=== PATIENT | female | born 1965 | race Caucasian/White ===

== ENCOUNTER → 2016-05-10 | Outpatient (CLI) | payer BC, OTHER ==
[~2016-05-10] MED LIST: ADVIN50/60 INH; ALBUAER2 INH; ASPI81TA28 PO; ATOR-26 PO; AZEL0.15 NAE; BCTCR TOP; CETI10TA84 PO; CITA20TA4 PO; CRFUDL PO; DXY100 PO; ESOM1CAP24 PO; FLUO20CA35 PO; FLUT0.0529 NAE; FLUT0.15 NAE; HYD10 PO; LORA0.5T12 PO; MAGIC1 PO; METO50TA16 PO; MONT1TAB3 PO; NTRGSL/4 UT; NTRSLP4 SL; ONDA4TAB10 SL; PANT40TA PO; PRED-301 PO; PRED10TA PO; PRVHFAIN INH; SUCR1TAB29 PO; TICA1TAB PO; WARF5TAB7 PO; ZNTT/150 PO
[2016-05-14 12:35] LABS: CHLAMYDIA TRACH RNA*** NOT DETECTED (NOT DETECTED); GC (NEIS GONORRHOEAE)RNA** NOT DETECTED (NOT DETECTED)
== END | disposition home or self-care (01) ==
LOC: C.LABSPEC 15:37
PROVIDERS: ATTEND Obstetrics & Gynecology
DX: Z30.430 Encounter for insertion of intrauterine contraceptive device (principal)

== ENCOUNTER → 2016-05-31 | Outpatient (CLI) | payer BC ==
[~2016-05-31] MED LIST changes: -ONDA4TAB10 SL
[2016-05-31 11:10] LABS: BASO % 1.3 %; BASO ABS # 0.11 K/uL (0-0.2); EOS % 14.3 %; HEMATOCRIT 30.6 % (37-47); IG% 0.5 %; LYMPH % 20.2 %; LYMPH ABS # 1.72 K/uL (1.2-3.4); MEAN CELL VOLUME 78.7 fL (80-100); MEAN CORPUSCULAR HEMOGLOBIN 23.9 pg (25-34); MEAN PLATELET VOLUME 9.6 fL (7.4-10.4); NEUT % 55.7 %; PLATELET COUNT 410 K/uL (130-400); RED BLOOD COUNT 3.89 M/uL (4.2-5.4); WHITE BLOOD COUNT 8.51 K/uL (4.8-10.8)
[2016-05-31 11:31] LABS: COMPLETE YES; MEAN CORPUSCULAR HGB CONC 30.4 g/dl (32-36)
[2016-05-31 11:35] LABS: ALT/SGPT 24 U/L (12-78); BLOOD UREA NITROGEN 9 mg/dl (7-18); BUN/CREATININE RATIO 8.4 (10-20); CALCIUM 8.3 mg/dl (8.5-10.1); CARBON DIOXIDE 25 mmol/L (21-32); CHLORIDE 109 mmol/L (98-107); GLUCOSE 88 mg/dl (70-99); POTASSIUM 3.7 mmol/L (3.5-5.1); SODIUM 142 mmol/L (136-145)
[2016-05-31 11:40] LABS: ALB/GLOB RATIO 1.1 (0.9-2); ALKALINE PHOSPHATASE 60 U/L (45-117); AST/SGOT 13 U/L (15-37)
== END | disposition home or self-care (01) ==
LOC: C.LAB 10:36
PROVIDERS: ATTEND Family Medicine
DX: R07.89 Other chest pain (principal)

== ENCOUNTER 2016-06-04 19:19 | Inpatient (IN) | payer BC ==
[~2016-06-04] VITALS: Ht 157.5 cm; Wt 81.1 kg
[~2016-06-04 19:19] MED LIST changes: -ADVIN50/60 INH; -ASPI81TA28 PO; -ATOR-26 PO; -AZEL0.15 NAE; -BCTCR TOP; -CETI10TA84 PO; -CITA20TA4 PO; -CRFUDL PO; -DXY100 PO; -ESOM1CAP24 PO; -FLUO20CA35 PO; -FLUT0.15 NAE; -HYD10 PO; -MAGIC1 PO; -METO50TA16 PO; -MONT1TAB3 PO; -NTRGSL/4 UT; -PANT40TA PO; -PRED-301 PO; -PRED10TA PO; -PRVHFAIN INH; -SUCR1TAB29 PO; -TICA1TAB PO; -ZNTT/150 PO
--- NOTE | 2016-06-04 20:45 | DIAGNOSTIC IMAGING REPORT ---
CHEST ONE VIEW PORTABLE CLINICAL HISTORY: Pain, radiating to the abdomen. COMPARISON STUDY: 05/04/2016 FINDINGS: The cardiac and mediastinal contours are normal. There is no evidence of focal pulmonary consolidation. There is no evidence of failure. No pleural effusions are visualized.[ The right-sided A-Port catheter remains unchanged in position. IMPRESSION: No active disease in the chest. Electronically signed by: Meño Amezcua M.D. 06/04/2016 8:43 PM Dictated Date/Time: 06/04/2016 8:43 PM
--- NOTE | 2016-06-04 20:56 | EMERGENCY ROOM VISIT NOTE ---
History Report prepared by Maria Teresa: Brianne Coffman Under the Supervision of: Dr. Guillermo Bennett D.O. First contact with patient: 20:21 Chief Complaint: REFERRED BY DOCTOR Stated Complaint: SENT FOR TRANSFUSION,CHEST PAIN, SOB History of Present Illness The patient is a 50 year old female who presents to the Emergency Room with complaints of intermittent chest pain starting 3 days ago. She notes some shortness of breath with exertion. She also had some lower back pain. She also reports a loss of appetite. About 2 weeks ago, she started having swelling in upper extremities. The patient currently denies any pain. She denies fevers, chills, nausea, vomiting, abdominal pain, lower extremity swelling, blood in stool, or any other complaints. She had blood work today which showed low hemoglobin level. She was referred to the Emergency Room by her PCP to receive further blood work and blood transfusion. She has a history of chronic anemia and myocardial infarction. Source of History: patient Onset: 3 days ago Position: chest Symptom Intensity: No pain currently Timing: intermittent Associated Symptoms: + back pain, No abdominal pain, No chills, No fevers, No nausea, No vomiting Review of Systems See HPI for pertinent positives & negatives. A total of 10 systems reviewed and were otherwise negative. Past Medical & Surgical Medical Problems: (1) Acute coronary syndrome,ST elevation AK (2) Acute coronary syndrome,ST elevation AK (3) Asthma (4) CAD (coronary artery disease) (5) Chest pain (6) NSTEMI, initial episode of care (7) pulmonary embo (8) Pulmonary embolism (9) SOB (shortness of breath) (10) Symptomatic anemia Family History Cancer Diabetes mellitus Gallbladder disease Heart disease Hypertension Lung disease Social History Smoking Status: Never Smoker Alcohol Use: none Drug Use: none Marital Status: Housing Status: lives with family Occupation Status: retired Current/Historical Medications Scheduled Aspirin (Aspirin Ec), 81 MG PO QAM Atorvastatin (Lipitor), 80 MG PO DAILY Citalopram Hydrobromide (Citalopram Hydrobromide), 20 MG PO HS Fluticasone Prop/Salmeterol (Advair Diskus 500/50 60 Dose), 1 PUFF INH BID Fluticasone Propionate (Nasal) (Flonase Allergy Relief), 2 SPRAYS JAY QPM Hydrocortisone (Cortef), 15 MG PO QAM Metoprolol Tartrate (Lopressor) (Lopressor), 50 MG PO BID Pantoprazole (Protonix), 40 MG PO BID Ticagrelor (Brilinta), 90 MG PO BID Warfarin Sod (Jantoven), 5 MG PO 5XWK Warfarin Sod (Jantoven), 7.5 MG PO 2XWK Scheduled PRN Albuterol (Ventolin Hfa), 2 PUFFS INH Q6H PRN for Asthma Symptoms Cetirizine (Zyrtec), 10 MG PO DAILY PRN for Allergy Symptoms Mupirocin (Bactroban), 1 APPLN TOP UD PRN for Cold Sores Nitroglycerin (Nitrostat), 0.4 MG UT UD PRN for Chest Pain Allergies Coded Allergies: Rivaroxaban (Verified Allergy, Intermediate, SHORTNESS OF BREATH, 04/07/16) and throat swelling Clarithromycin (Verified Allergy, Mild, HIVES, 04/07/16) Azithromycin (Unverified Allergy, Unknown, per cardio note , 04/07/16) Cephalosporins (Verified Allergy, Unknown, hives/mild throat swelling, 04/07/16) CEFTRIAXONE Clavulanic Acid (Verified Allergy, Unknown, HIVES, 04/07/16) Fexofenadine (Unverified Allergy, Unknown, per cardio note , 04/07/16) Formoterol (Unverified Allergy, Unknown, per cardio note , 04/07/16) Iron (Verified Allergy, Unknown, HANDS/FEET SWELLING/NAUSEA/UNCONSCIOUS, 04/07/16) CURRENTLY ON IRON INFUSION REGIME - DR ALCANTARA PRESCRIBES - OKAY ON THESE INFUSIONS AT CURRENT TIME Milk Protein Extract (Unverified Allergy, Unknown, per cardio note , ) Penicillins (Verified Allergy, Unknown, HIVES, 04/07/16) Pseudoephedrine (Unverified Allergy, Unknown, per cardio note , 04/07/16) Sulfa Antibiotics (Verified Allergy, Unknown, swelling and hives, 04/07/16) Erythromycin (Verified Adverse Reaction, Unknown, NAUSEA, 04/07/16) Uncoded Allergies: Proair (Allergy, Unknown, per cardio note , 04/06/16) Tolerates Ventolin Physical Exam Vital Signs Date Time Temp Pulse Resp B/P Pulse Ox O2 Delivery O2 Flow Rate FiO2 06/04/16 22:34 57 16 113/73 99 Room Air 06/04/16 22:15 67 06/04/16 21:10 59 16 108/68 99 Room Air 06/04/16 19:34 36.5 63 16 105/58 100 Room Air Physical Exam GENERAL: Patient is awake, alert, and in no acute distress. Patient is resting comfortably and showing no signs of anxiety EYES: The conjunctivae are clear. The pupils are round and reactive. EARS, NOSE, MOUTH AND THROAT: The nose is without any evidence of any deformity. Mucous membranes are moist tongue is midline NECK: The neck is nontender and supple. RESPIRATORY: Normal respiratory effort is noted there is no evidence of wheezing rhonchi or rales CARDIOVASCULAR: Regular rate and rhythm noted there no murmurs rubs or gallops normal S1 normal S2 GASTROINTESTINAL: The abdomen is soft. Bowel sounds are present in all quadrants. Abdomen is nontender. Rectal exam revealed brown stool which is heme negative. MUSCULOSKELETAL/EXTREMITIES: There is no evidence of gross deformity full range of motion is noted in the hips and shoulders SKIN: There is no obvious evidence of any rash. There are no petechiae, pallor or cyanosis noted. NEUROLOGIC: Patient is awake alert and oriented x3 Medical Decision & Procedures ER Provider Diagnostic Interpretation: X-ray results as stated below per interpretation by me and the radiologist. CHEST ONE VIEW PORTABLE CLINICAL HISTORY: Pain, radiating to the abdomen. COMPARISON STUDY: 05/04/2016 FINDINGS: The cardiac and mediastinal contours are normal. There is no evidence of focal pulmonary consolidation. There is no evidence of failure. No pleural effusions are visualized.[ The right-sided A-Port catheter remains unchanged in position. IMPRESSION: No active disease in the chest. Electronically signed by: Meño Amezcua M.D. 06/04/2016 8:43 PM Dictated Date/Time: 06/04/2016 8:43 PM Laboratory Results 06/04/16 20:45 Red Blood Count 3.89, Mean Corpuscular Volume 76.9, Mean Corpuscular Hemoglobin 23.7, Mean Corpuscular Hemoglobin Concent 30.8, Mean Platelet Volume 9.6, Neutrophils (%) (Auto) 58.4, Lymphocytes (%) (Auto) 18.0, Monocytes (%) (Auto) 5.9, Eosinophils (%) (Auto) 15.9, Basophils (%) (Auto) 1.6, Neutrophils # (Auto ) 4.88, Lymphocytes # (Auto) 1.50, Monocytes # (Auto) 0.49, Eosinophils # (Auto ) 1.33, Basophils # (Auto) 0.13 06/04/16 20:45 Test 06/04/16 20:45 White Blood Count 8.35 K/uL (4.8-10.8) Red Blood Count 3.89 M/uL (4.2-5.4) Hemoglobin 9.2 g/dL (12.0-16.0) Hematocrit 29.9 % (37-47) Mean Corpuscular Volume 76.9 fL (80-100) Mean Corpuscular Hemoglobin 23.7 pg (25-34) Mean Corpuscular Hemoglobin Concent 30.8 g/dl (32-36) Platelet Count 432 K/uL (130-400) Mean Platelet Volume 9.6 fL (7.4-10.4) Neutrophils (%) (Auto) 58.4 % Lymphocytes (%) (Auto) 18.0 % Monocytes (%) (Auto) 5.9 % Eosinophils (%) (Auto) 15.9 % Basophils (%) (Auto) 1.6 % Neutrophils # (Auto) 4.88 K/uL (1.4-6.5) Lymphocytes # (Auto) 1.50 K/uL (1.2-3.4) Monocytes # (Auto) 0.49 K/uL (0.11-0.59) Eosinophils # (Auto) 1.33 K/uL (0-0.5) Basophils # (Auto) 0.13 K/uL (0-0.2) RDW Standard Deviation 48.9 fL (36.4-46.3) RDW Coefficient of Variation 17.3 % (11.5-14.5) Immature Granulocyte % (Auto) 0.2 % Immature Granulocyte # (Auto) 0.02 K/uL (0.00-0.02) Absolute Reticulocyte Count 0.07 10^6/uL (0.02-0.10) Percent Reticulocyte Count 1.8 % (0.5-2.0) Immature Reticulocyte Fraction 22.7 % (3.0-15.9) Reticulocyte Hemoglobin Content 18.2 PG (28.2-36.6) Prothrombin Time 12.0 SECONDS (9.0-12.0) Prothromb Time International Ratio 1.1 (0.9-1.1) Activated Partial Thromboplast Time 28.3 SECONDS (21.0-31.0) Partial Thromboplastin Ratio 1.1 Anion Gap 9.0 mmol/L (3-11) Est Creatinine Clear Calc Drug Dose 60.4 ml/min Estimated GFR () 67.8 Estimated GFR (Non- 58.5 BUN/Creatinine Ratio 7.0 (10-20) Calcium Level 8.3 mg/dl (8.5-10.1) Total Bilirubin 0.4 mg/dl (0.2-1) Direct Bilirubin < 0.1 mg/dl (0-0.2) Aspartate Amino Transf (AST/SGOT) 22 U/L (15-37) Alanine Aminotransferase (ALT/SGPT) 27 U/L (12-78) Alkaline Phosphatase 62 U/L (45-117) Total Creatine Kinase 142 U/L (26-192) Creatine Kinase MB 3.7 ng/ml (0.5-3.6) Creatine Kinase MB Ratio 2.6 (0-3.0) Total Protein 7.0 gm/dl (6.4-8.2) Albumin 3.7 gm/dl (3.4-5.0) Lipase 159 U/L (73-393) Thyroid Stimulating Hormone (TSH) 2.080 uIu/ml (0.300-4.500) Free Thyroxine 0.82 ng/dl (0.80-1.60) Human Chorionic Gonadotropin, Qual NEG (NEG) Random Cortisol 3.10 mcg/dl Laboratory results per my review. Medications Administered Medications (Trade) Dose Ordered Sig/Daisha Route Start Time Stop Time Status Last Admin Dose Admin Aspirin (Aspirin Chew) 324 mg NOW STAT PO 06/04/16 21:59 06/04/16 22:00 DC 06/04/16 22:04 324 MG Heparin Sodium/ Dextrose (Heparin 25,000 Unit/500ml D5W) 25,000 unit STK-MED ONCE .ROUTE 06/04/16 22:13 06/04/16 22:15 DC 06/04/16 22:33 25,000 UNIT Heparin Sodium (Porcine) (Heparin Sq 5000 Unit/0.5ml) 5,000 unit STK-MED ONCE .ROUTE 06/04/16 22:14 06/04/16 22:15 DC 06/04/16 22:29 5,000 UNIT ECG Indication: chest pain Rate (beats per minute): 56 Rhythm: sinus bradycardia Findings: T-wave inversion (anterior and lateral), no ectopy Comparison ECG Date: May 04, 2016 Change: Anterior changes are new compared to May 04, 2016. ED Course 2020: The patient was evaluated in room A11B. A complete history and physical examination were performed. 2158: Aspirin 324 mg PO 2200: I discussed the patient's case with Dr. Plaza, guardian ad litem with [facility]. He recommended heparin and continuing to monitor troponin and pain. 2203: Heparin Sodium/Dextrose 1 ea N/A 221: Heparin Sodium/Dextrose 34669 unit IV 2213: Heparin Sodium (Porcine) 5000 unit IV 2300: Upon reevaluation, the patient is resting comfortably. I discussed results and treatment plan with her. She verbalizes agreement and understanding. [facility] The patient will be evaluated for further management and care. Medical Decision Differential diagnosis: Etiologies such as cardiac ischemia, aortic dissection, pulmonary embolism, pneumonia, pneumothorax, musculoskeletal, infections, pericarditis, myocarditis , esophageal rupture, gastrointestinal, as well as others were entertained. Nursing notes reviewed. The patient is a 50-year-old female who presented to the emergency department for an evaluation of chest pain and anemia. The patient was found have anemia on outpatient laboratory studies but she's been having problems with exertional dyspnea and exertional chest pain over the last few days. The patient doesn't a history of coronary artery disease. She's had similar episodes in the past with angina related to anemia. The patient does not have any current chest pain but describes episodes of right-sided chest pain especially with exertion. Her EKG only showed nonspecific T-wave abnormalities which were new compared to previous EKGs. She was typed and screened and ordered 2 units of packed red blood cells. Her rectal exam revealed heme negative stool. She was found have an elevated troponin. I discussed her presentation with her primary guardian ad litem and he is recommended starting the patient on heparin because her INR is subtherapeutic. She was also given aspirin. I discussed her case with the on-call [facility] hospitalist group. They've agreed to evaluate the patient in the emergency department for further management and disposition. Consults Time Called: 2254 Consulting Physician: Dr. Mata of the [facility] Returned Call: [phone] [facility] Additional Consults: Time Called: 2199 Consulted Physician: Dr. Plaza, guardian ad litem with [facility] Returned Call: 2200 Additional Comments: I discussed the patient's case with Dr. Plaza, guardian ad litem with [facility]. He recommended heparin and continuing to monitor troponin and pain. Impression Primary Impression: NSTEMI (non-ST elevated myocardial infarction) Additional Impressions: Anemia Right-sided chest pain Critical Care I have personally spent greater than 45 minutes of critical care time in the direct management of this patient. This includes bedside care, interpretation of diagnostic studies, and testing, discussion with consultants, patient, and family members, and other required patient management activities. This 45 minutes is in excess of all separately billable procedures. Scribe Attestation The scribe's documentation has been prepared under my direction and personally reviewed by me in its entirety. I confirm that the note above accurately reflects all work, treatment, procedures, and medical decision making performed by me. Departure Information Dispostion Being Evaluated By Hospitalist Genaro Guy M.D. (PCP) Patient Instructions My [facility] Problem Qualifiers
[2016-06-04 21:12] LABS: BASO % 1.6 %; BASO ABS # 0.13 K/uL (0-0.2); COMPLETE YES; EOS % 15.9 %; HEMATOCRIT 29.9 % (37-47); IG% 0.2 %; IMMATURE RETIC FRACTION 22.7 % (3.0-15.9); MEAN CELL VOLUME 76.9 fL (80-100); MEAN CORPUSCULAR HEMOGLOBIN 23.7 pg (25-34); MEAN CORPUSCULAR HGB CONC 30.8 g/dl (32-36); MEAN PLATELET VOLUME 9.6 fL (7.4-10.4); MONO % 5.9 %; NEUT % 58.4 %; PLATELET COUNT 432 K/uL (130-400); RED BLOOD COUNT 3.89 M/uL (4.2-5.4); RETHE 18.2 PG (28.2-36.6); WHITE BLOOD COUNT 8.35 K/uL (4.8-10.8)
[2016-06-04] MEDS ORDERED: PRVHFAIN INH (21:14)
[2016-06-04 21:20] LABS: INR 1.1 (0.9-1.1); PARTIAL THROMBOPLASTIN RATIO 1.1
[2016-06-04 21:27] LABS: ALT/SGPT 27 U/L (12-78); BLOOD UREA NITROGEN 8 mg/dl (7-18); CALCIUM 8.3 mg/dl (8.5-10.1); CARBON DIOXIDE 24 mmol/L (21-32); CHLORIDE 110 mmol/L (98-107); GLUCOSE 88 mg/dl (70-99); SODIUM 143 mmol/L (136-145)
[2016-06-04 21:29] LABS: PREG INTERNAL NEGATIVE QC NEG CLEAR BACKGROUND; PREG INTERNAL POSITIVE QC POS CONTROL LINE
[2016-06-04 21:41] LABS: ALKALINE PHOSPHATASE 62 U/L (45-117); AST/SGOT 22 U/L (15-37); CKMB/CK RATIO 2.6 (0-3.0)
[2016-06-04] MEDS ORDERED: ASPIRIN 81 MG CHEW PO STA (21:59)
[2016-06-04] MEDS ORDERED: HEPARIN 25000 UNIT/500 ML D5W ONE (22:13)
[2016-06-04] MEDS ORDERED: HEPARIN SOD 5000 UNIT/0.5 ML CARP ONE (22:14)
--- NOTE | 2016-06-04 22:50 | History and Physical ---
History & Physical Date & Time of Service: Jun 04, 2016 at 22:28 Chief Complaint: Sent For Transfusion,Chest Pain, Sob Primary Care Physician: Genaro Mitchell M.D. History of Present Illness Source: patient 50 y/o F w/Hx severe CAD, STEMI 11/18 leading to two catheterizations and placement of SHARON x 2 to LAD and one in the RCA. She suffers from anemia as well due to chronic heavy menstrual bleeding and has had previous episodes of CP and troponin elevation related to anemia and demand ischemia. She also has a history of recent PEs for which she is on Coumadin. She present with central CP described as burning and GERD-like. No associated N /V, SOB or diaphoresis. Initial labs revealed a troponin elevation . Initial EKG showed new T wave inversions in lead V5 but is otherwise unchanged. 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 5) B/L PEs 02/18 6) HPL 7) Depression 8) Anaphylactic reaction to IV iron Surgical: 1) Cholecystectomy Family History Cancer Diabetes mellitus Gallbladder disease Heart disease Hypertension Lung disease Social History Smoking Status: Never Smoker Drug Use: none Marital Status: Housing status: lives with family Occupational Status: retired Immunizations History of Influenza Vaccine: Unknown Influenza Vaccine Date: Feb 24, 2006 History of Tetanus Vaccine?: Unknown History of Pneumococcal: Unknown History of Hepatitis B Vaccine: No Multi-Drug Resistant Organisms History of MDRO: No Allergies Coded Allergies: Rivaroxaban (Verified Allergy, Intermediate, SHORTNESS OF BREATH, 04/07/16) and throat swelling Clarithromycin (Verified Allergy, Mild, HIVES, 04/07/16) Azithromycin (Unverified Allergy, Unknown, per cardio note , 04/07/16) Cephalosporins (Verified Allergy, Unknown, hives/mild throat swelling, 04/07/16) CEFTRIAXONE Clavulanic Acid (Verified Allergy, Unknown, HIVES, 04/07/16) Fexofenadine (Unverified Allergy, Unknown, per cardio note , 04/07/16) Formoterol (Unverified Allergy, Unknown, per cardio note , 04/07/16) Iron (Verified Allergy, Unknown, HANDS/FEET SWELLING/NAUSEA/UNCONSCIOUS, 04/07/16) CURRENTLY ON IRON INFUSION REGIME - DR ALCANTARA PRESCRIBES - OKAY ON THESE INFUSIONS AT CURRENT TIME Milk Protein Extract (Unverified Allergy, Unknown, per cardio note , ) Penicillins (Verified Allergy, Unknown, HIVES, 04/07/16) Pseudoephedrine (Unverified Allergy, Unknown, per cardio note , 04/07/16) Sulfa Antibiotics (Verified Allergy, Unknown, swelling and hives, 04/07/16) Erythromycin (Verified Adverse Reaction, Unknown, NAUSEA, 04/07/16) Uncoded Allergies: Proair (Allergy, Unknown, per cardio note , 04/06/16) Tolerates Ventolin Home Medications Scheduled Aspirin (Aspirin Ec), 81 MG PO QAM Atorvastatin (Lipitor), 80 MG PO DAILY Citalopram Hydrobromide (Citalopram Hydrobromide), 20 MG PO HS Fluticasone Prop/Salmeterol (Advair Diskus 500/50 60 Dose), 1 PUFF INH BID Fluticasone Propionate (Nasal) (Flonase Allergy Relief), 2 SPRAYS JAY QPM Hydrocortisone (Cortef), 15 MG PO QAM Metoprolol Tartrate (Lopressor) (Lopressor), 50 MG PO BID Pantoprazole (Protonix), 40 MG PO BID Ticagrelor (Brilinta), 90 MG PO BID Warfarin Sod (Jantoven), 5 MG PO 5XWK Warfarin Sod (Jantoven), 7.5 MG PO 2XWK Scheduled PRN Albuterol (Ventolin Hfa), 2 PUFFS INH Q6H PRN for Asthma Symptoms Cetirizine (Zyrtec), 10 MG PO DAILY PRN for Allergy Symptoms Mupirocin (Bactroban), 1 APPLN TOP UD PRN for Cold Sores Nitroglycerin (Nitrostat), 0.4 MG UT UD PRN for Chest Pain Review of Systems Constitutional: No chills, No fever, No sweats Eyes: No eye pain, No worsening of vision ENT: No hearing loss, No nasal symptoms, No unusual epistaxis Respiratory: No cough, No sputum, No wheezing Cardiovascular: + chest pain, No PND, No claudication, No edema, No orthopnea, No palpitations Abdomen: No nausea, No pain, No vomiting Musculoskeletal: No joint pain, No muscle pain Genitourinary - Female: No dysuria, No hematuria, No urinary frequency, No urinary incontinence, No urinary retention, No urinary urgency Neurologic: No memory loss Psychiatric: No depression symptoms Endocrine: No fatigue Hematologic / Lymphatic: No abnormal bleeding/bruising Integumentary: No rash Allergic / Immunologic: No environmental allergies Physical Exam Vital Signs Date Time Temp Pulse Resp B/P Pulse Ox O2 Delivery O2 Flow Rate FiO2 06/04/16 22:15 67 06/04/16 21:10 59 16 108/68 99 Room Air 06/04/16 19:34 36.5 63 16 105/58 100 Room Air General Appearance: WD/WN, no apparent distress Head: normocephalic, atraumatic Eyes: normal inspection, PERRL, EOMI ENT: normal ENT inspection, hearing grossly normal, TMs normal, pharynx normal Neck: supple, no adenopathy, thyroid normal, no JVD Respiratory/Chest: chest non-tender, lungs clear, normal breath sounds, no respiratory distress, no accessory muscle use Cardiovascular: regular rate, rhythm, no edema, no gallop, no JVD Abdomen/GI: normal bowel sounds, non tender, soft Back: normal inspection, no CVA tenderness, no muscle spasm, normal range of motion Extremities/Musculoskelatal: normal inspection, no calf tenderness, normal capillary refill, no pedal edema, normal range of motion Neurologic/Psych: foot and ankle surgeon II-XII nml as tested, no motor/sensory deficits, alert, normal mood/affect, normal reflexes, oriented x 3 Skin: normal color, warm/dry, no rash Diagnostics Laboratory Results Results Past 24 Hours Test 06/04/16 20:45 Range/Units White Blood Count 8.35 4.8-10.8 K/uL Red Blood Count 3.89 4.2-5.4 M/uL Hemoglobin 9.2 12.0-16.0 g/dL Hematocrit 29.9 37-47 % Mean Corpuscular Volume 76.9 80-100 fL Mean Corpuscular Hemoglobin 23.7 25-34 pg Mean Corpuscular Hemoglobin Concent 30.8 32-36 g/dl Platelet Count 432 130-400 K/uL Mean Platelet Volume 9.6 7.4-10.4 fL Neutrophils (%) (Auto) 58.4 % Lymphocytes (%) (Auto) 18.0 % Monocytes (%) (Auto) 5.9 % Eosinophils (%) (Auto) 15.9 % Basophils (%) (Auto) 1.6 % Neutrophils # (Auto) 4.88 1.4-6.5 K/uL Lymphocytes # (Auto) 1.50 1.2-3.4 K/uL Monocytes # (Auto) 0.49 0.11-0.59 K/uL Eosinophils # (Auto) 1.33 0-0.5 K/uL Basophils # (Auto) 0.13 0-0.2 K/uL RDW Standard Deviation 48.9 36.4-46.3 fL RDW Coefficient of Variation 17.3 11.5-14.5 % Immature Granulocyte % (Auto) 0.2 % Immature Granulocyte # (Auto) 0.02 0.00-0.02 K/uL Absolute Reticulocyte Count 0.07 0.02-0.10 10^6/uL Percent Reticulocyte Count 1.8 0.5-2.0 % Immature Reticulocyte Fraction 22.7 3.0-15.9 % Reticulocyte Hemoglobin Content 18.2 28.2-36.6 PG Prothrombin Time 12.0 9.0-12.0 SECONDS Prothromb Time International Ratio 1.1 0.9-1.1 Activated Partial Thromboplast Time 28.3 21.0-31.0 SECONDS Partial Thromboplastin Ratio 1.1 Sodium Level 143 136-145 mmol/L Potassium Level 4.0 3.5-5.1 mmol/L Chloride Level 110 98-107 mmol/L Carbon Dioxide Level 24 21-32 mmol/L Anion Gap 9.0 3-11 mmol/L Blood Urea Nitrogen 8 7-18 mg/dl Creatinine 1.10 0.60-1.20 mg/dl Est Creatinine Clear Calc Drug Dose 60.4 ml/min Estimated GFR () 67.8 Estimated GFR (Non- 58.5 BUN/Creatinine Ratio 7.0 10-20 Random Glucose 88 70-99 mg/dl Calcium Level 8.3 8.5-10.1 mg/dl Total Bilirubin 0.4 0.2-1 mg/dl Direct Bilirubin < 0.1 0-0.2 mg/dl Aspartate Amino Transf (AST/SGOT) 22 15-37 U/L Alanine Aminotransferase (ALT/SGPT) 27 12-78 U/L Alkaline Phosphatase 62 45-117 U/L Total Creatine Kinase 142 26-192 U/L Creatine Kinase MB 3.7 0.5-3.6 ng/ml Creatine Kinase MB Ratio 2.6 0-3.0 Troponin I 2.240 0-0.045 ng/ml Total Protein 7.0 6.4-8.2 gm/dl Albumin 3.7 3.4-5.0 gm/dl Lipase 159 73-393 U/L Thyroid Stimulating Hormone (TSH) 2.080 0.300-4.500 uIu/ml Free Thyroxine 0.82 0.80-1.60 ng/dl Human Chorionic Gonadotropin, Qual NEG NEG Random Cortisol 3.10 mcg/dl Impression Assessment and Plan 50 y/o F w/Hx severe CAD, STEMI 11/18 leading to two catheterizations and placement of SHARON x 2 to LAD and one in the RCA. She suffers from anemia as well due to chronic heavy menstrual bleeding and has had previous episodes of CP and troponin elevation related to anemia and demand ischemia. She also has a history of recent PEs for which she is on Coumadin. She present with central CP described as burning and GERD-like. Initial labs revealed a troponin elevation . Initial EKG showed new T wave inversions in lead V5 but is otherwise unchanged. Her INR was slightly subtherapeutic on admission 1) CP - troponin elevation - She will be transfused 2 units PRBCs as she is anemic and has had CP previously when her Hb has been low. She will be placed on full dose Heparin as her INR is 1.7 and cont Brilinta. Her x ray service engineer has been consulted. 2) Anemia - we will monitor for bleeding and as mentioned she will be transfused due to her CP 3) Asthma - cont home meds - no current exacerbation 4) Adrenal insufficiency - cont replacement Tx Full code - full dose heparin Total time for this admit including chart review, review of meds, EKG - discussion with ER attending and pt 42 min Level of Care Telemetry Resuscitation Status FULL RESUSCITATION VTE Prophylaxis Given or contraindicated: Other Anticoagulation
[2016-06-04] MEDS ORDERED: ALBUTEROL HFA 8 GM INHALER INH PRN (23:00)
[2016-06-04] MEDS ORDERED: ALUMINUM/MAGNESIUM/SIMETH (MAALOX MAX) 30 ML UDC PO PRN (23:00)
[2016-06-04] MEDS ORDERED: ZOLPIDEM TARTRATE 5 MG TAB PO PRN (23:00)
[2016-06-04] MEDS ORDERED: ACETAMINOPHEN 325 MG TAB PO PRN (23:00)
[2016-06-04] MEDS ORDERED: MAGNESIUM HYDROXIDE SUSP 30 ML UDC PO PRN (23:00)
[2016-06-04] MEDS ORDERED: ONDANSETRON INJ 2 MG/ML 2 ML VIAL IV PRN (23:00)
[2016-06-04] MEDS ORDERED: MoRPHine SULFATE 2 MG/ML CARP IV PRN (23:00)
[2016-06-04] MEDS ORDERED: CETIRIZINE HCL 10 MG TAB PO PRN (23:00)
[2016-06-04] MEDS ORDERED: POLYETHYLENE (MIRALAX) 17 GM PACK PO PRN (23:00)
[2016-06-04] MEDS ORDERED: NITROGLYCERIN 0.4 MG SL PER TAB CHARGE SL PRN (23:00)
[2016-06-04 23:21] VITALS: BP 123/70; PULSE 57; TEMP 36.6; O2SAT 98
[2016-06-04 23:28] VITALS: BP 119/72; PULSE 57; TEMP 36.8; O2SAT 98
[2016-06-04 23:41] VITALS: BP 106/72; PULSE 62; TEMP 36.8; O2SAT 18
[2016-06-05] VITALS (25 sets, daily range): BP systolic 97–125; BP diastolic 50–84; PULSE 57–77; TEMP 36.4–36.8; O2SAT 92–99; Ht 157.5 cm; Wt 81.1 kg
[2016-06-05] MEDS: D5NSS + 20MEQ KCL 1,000 ML IV SCH ×2 (03:00→06:02)
[2016-06-05 05:15] LABS: PARTIAL THROMBOPLASTIN RATIO 2.6
[2016-06-05] MEDS: TICAGRELOR 90 MG TAB PO SCH ×2 (08:11→21:34)
[2016-06-05] MEDS: ASPIRIN 81 MG ECTAB PO SCH (08:12)
[2016-06-05] MEDS: PANTOprazole SOD 40 MG TAB PO SCH ×2 (08:12→21:35)
[2016-06-05] MEDS: FLUTICASONE/SALMETEROL (ADVAIR) 500/50 INH 14 PUFF INH SCH ×2 (08:12→21:34)
[2016-06-05] MEDS: METOPROLOL TARTRATE 50 MG TAB PO SCH ×2 (08:13→21:35)
[2016-06-05] MEDS: ATORVASTATIN 40 MG TAB PO SCH (08:13)
[2016-06-05] MEDS: HYDROCORTISONE 10 MG TAB PO SCH (08:14)
[2016-06-05] MEDS ORDERED: LORAZEPAM INJ 1 MG in SYRINGE 0.5 ML IV PRN (10:00)
[2016-06-05] MEDS: LORAZEPAM 2 MG/ML 1 ML VIAL IV PRN ×2 (10:49→22:13)
[2016-06-05 11:16] LABS: HEMATOCRIT 33.9 % (37-47)
[2016-06-05] MEDS ORDERED: OPTIRAY 320 IV PRN (11:30)
[2016-06-05] MEDS: NITROGLYCERIN OINT 2% 1GM PACKET EXT SCH ×2 (11:30→18:29)
[2016-06-05 11:35] LABS: BUN/CREATININE RATIO 9.2 (10-20); CALCIUM 7.9 mg/dl (8.5-10.1); POTASSIUM 3.5 mmol/L (3.5-5.1)
--- NOTE | 2016-06-05 12:37 | CARDIOLOGY CONSULTATION ---
DATE OF CONSULTATION: 06/05/2016 PRIMARY PHYSICIAN: Genaro Mitchell MD ATTENDING PHYSICIAN: Genaro Su MD CONSULTATION: Raul Plaza MD HISTORY OF PRESENT ILLNESS: The patient is a 50-year-old white female. She is well known to me since 11/13/2015. At that time, she presented to the [facility] Emergency Department with an acute coronary syndrome. At that time, she complained of a burning and aching retrosternal discomfort, radiating into both arms, shoulders, and neck. She had associated dyspnea, nausea, and diaphoresis. Electrocardiogram with ST depression in the precordial leads and inferior ST elevations. A heart alert was called. Emergency cardiac catheterization revealed a subtotal proximal LAD occlusion and a 90% mid LAD stenosis following the origin of a bifurcating diagonal artery. Deployment of 3 x 26 and 2.75 x 8 mm Resolute drug-eluting stents. The residual stenosis at the stent site was 0%. DAYNE-3 flow in the LAD following intervention. LAD diagonal was "jailed." On initial catheterization in November 12, the right coronary artery was not selectively cannulated. She is scheduled to undergo a repeat cardiac catheterization on November 15 to assess the right coronary artery. The morning of the elective procedure, she again developed severe aching pain radiating to her neck, shoulder, and back. The catheterization was performed on an emergent basis. This revealed a total early mid RCA occlusion. Deployment of a 3 x 26 mm Resolute drug-eluting stent in mid RCA. No residual stenosis. The LAD stents were widely patent. Ostial 20% stenosis of the jailed LAD diagonal. LV angiography revealed hypokinesis of the posterior basal segment. Readmitted to [facility] on 12/22/2015 with a sharp mid retrosternal chest discomfort. Cardiac enzymes are negative for myocardial injury. Stress echo in December 22 is negative for evidence of myocardial ischemia with 68% maximum predicted heart rate. Resting echo with basal inferior and posterior hypokinesis. The patient was readmitted to [facility] on 01/17/2016 with increased dyspnea. She does have a history of chronic asthma. In the past, the asthma was steroid dependent. A CT scan on January admission revealed evidence of pulmonary embolus. Venous ultrasound of the legs was with no evidence of deep venous thrombosis. She was started on anticoagulation therapy at that time. The patient had already been on dual antiplatelet therapy with aspirin and Brilinta. She was readmitted to [facility] on 04/08/2016 with chest pain, severe anemia, and severe abnormal uterine bleeding. The abnormal uterine bleeding is a chronic problem with her. This does cause her to have an iron deficiency anemia, for which she has needed to receive iron transfusions as well as packed red blood cell transfusions. In the week prior to the April admission, she had had profound vaginal bleeding. Her hemoglobin was decreased at 06:22 on April 08. She subsequently received transfusion of a total of 3 units of packed red blood cells. Her electrocardiogram on admission revealed a shallow T inversions in leads 1, aVL, and V2. Her troponin and cardiac enzymes were elevated. The peak troponin I was 8.120. An echocardiogram on this admission revealed normal biventricular systolic function and normal left ventricular wall motion. It was felt that her elevated cardiac enzymes were secondary to demand myocardial ischemia in light of her severe anemia. She was discharged on April 09. At that time, her hemoglobin was 9.3. The patient states that she did relatively well after discharge. She does have severe asthma as well as gastroesophageal reflux disease. It had been contemplated for her to undergo an endometrial ablation procedure. However, it was decided that her abnormal uterine bleeding would be treated with implantation of an IUD. Also, in April, she received a Depo-Provera injection. After this injection, her menstrual periods have had decreased flow. She states she is currently having a menstrual period and she states that the bleeding is relatively light for her. She states that approximately 12 days ago, she began to develop a sensation of a sharp retrosternal chest pain. This was associated with a sharp pain beneath the shoulder blades. The episodes could last up to 8 hours. No associated diaphoresis, nausea, or dyspnea. No radiation to her arms or neck. She states it was different than her prior [place] type symptoms, which she experienced in November of 2015. The discomfort is not precipitated by exertion. The intensity is not increased by exertion. It can be improved if she takes a deep breath. It is improved within 10 minutes after she takes oral antacid solution. Yesterday, she had an episode of this discomfort lasting approximately 45 minutes. A few hours later, the discomfort returned. It lasted for approximately 1-1/2 hours. She again had relief with oral antacid solution. She went to her primary care provider's office yesterday. She was found to have anemia and was referred to the Emergency Department. In the Emergency Department, she had no complaints of chest pain. Labs were obtained in the Emergency Department and revealed an elevated troponin I of 2.240. Repeat troponin I overnight was 2.370. This morning, it is 2.130. Since admission to telemetry unit, she continues to complain of episodes of retrosternal pain and scapular pain. Again, she states it is different than her prior anginal symptoms. The discomfort improves if she drinks water or eats food. Her asthma recently has been under relatively good control. She does have occasional episodes of dyspnea and wheezing, relieved with the use of an inhaler. Sometimes, the dyspnea and wheezing can awaken her from sleep. No definite orthopnea. No palpitations, lightheadedness, or syncope. No lower extremity edema. Over the past several days, she has felt that her fingers were more swollen than usual. PAST MEDICAL HISTORY: 1. Coronary artery disease as above. 2. Longstanding history of asthma. In the past, she has required large doses of steroids. 3. Adrenal insufficiency secondary to chronic steroid use for her reactive airway disease. 4. Chronic iron deficiency anemia. 5. Gastroesophageal reflux disease. 6. Longstanding history of recurrent nausea and vomiting. 7. Irritable bowel syndrome. 8. History of depression and anxiety. 9. History of anaphylactoid reaction to iron transfusion in January 2016. 10. Dyslipidemia. Hemoglobin A1c in November 2015 was 5.4. 11. No history of hypertension. PAST SURGICAL HISTORY: 1. Status post laparoscopic cholecystectomy. 2. History of permanent indwelling central venous catheter. She uses this to receive her iron transfusions. 3. History of needing retrieval of a catheter fracture in the pulmonary artery in 2010. 4. Status post hemorrhoid surgery. 5. Status post cardiac catheterization and coronary stent procedures as documented above. ALLERGIES AND ADVERSE DRUG REACTIONS: CEPHALOSPORINS, CLARITHROMYCIN, CLAVULANIC ACID, ERYTHROMYCIN, MACROLIDES, PENICILLINS, SULFA DRUGS, AND BETA-LACTAMS. ANAPHYLACTOID REACTION TO IRON TRANSFUSION PER THE PATIENT IN 2015. Prior to that, she had had no history of any allergic reaction with her iron transfusions. In January 2016, she received a different formulation by iron than usual. SHE HAS HAD DYSPNEA WITH XARELTO. ADVERSE REACTIONS TO FEXOFENADINE AND FORMOTEROL. FAMILY HISTORY: Brother with A history of [place] in his 60s. Family history of reactive airway disease. History of breast cancer in her mother. SOCIAL HISTORY: The patient is and lives with . She does not smoke cigarettes or drink alcohol. Two children. REVIEW OF SYSTEMS: 1. As above. 2. No fevers or chills. 3. Decreased appetite. Despite the decreased appetite, she complains of weight gain over the past several weeks. She thinks that this occurred after she had received her Depo-Provera injection. 4. No urinary complaints. 5. No cerebrovascular or peripheral vascular complaints. 6. No GI bleeding complaints. 7. Chronic diffuse mild myalgias. 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 They preceded starting a statin therapy. PHYSICAL EXAMINATION: GENERAL: The patient is sitting up in her bed. No distress. She does complain of anxiety. VITAL SIGNS: Oral temperature this morning 36.8, pulse 62, blood pressure 116/74, and pulse oximetry on room air 97%. NECK: No jugular venous distension. Carotids 2/2 bilaterally. Normal upstroke. No bruits. EYES: Pupils equal and round. Anicteric. Conjunctivae normal. LUNGS: Normal respiratory effort. Clear. No rales or wheezes. HEART: PMI normal. No lifts or heaves. Regular rate and rhythm. S1 and S2 normal. No S3 or S4. No murmur or rub. ABDOMEN: Soft. Nontender. No palpable masses or organomegaly. No bruits. EXTREMITIES: No cyanosis, clubbing, or pretibial edema. No significant edema noted of her fingers. NEUROLOGIC: Alert and oriented x3. Motor grossly intact. PSYCHIATRIC: Affect is normal. DATA: Electrocardiogram on 06/04/2016 at 20:25 with sinus bradycardia, low voltage QRS, nonspecific biphasic to shallow T inversions in 1 and aVL. Electrocardiogram this morning at 08:43 a.m. with sinus rhythm, low voltage QRS, inverted T waves in 1 and aVL. Shallow T-wave inversions and biphasic T waves in V4-V6. Chest x-ray on June 04 reviewed by me reveals normal heart size. Central venous catheter. No heart failure or infiltrate. Metabolic profile last evening with sodium 143, potassium 4.0, chloride 110, carbon dioxide 24, BUN 8, creatinine 1.10, and glucose 88. AST and ALT normal. CK total 142 with MB of 3.7. CK-MB ratio 2.6. Albumin 3.7. TSH 2.080. Free T4 is 0.82. Hemoglobin was 9.2 with hematocrit 29.9. Platelet count 432. WBC 8.35. INR 1.1. Baseline PTT 28.3. On intravenous heparin PTT this morning 67.6. CURRENT MEDICATIONS: Citalopram 20 mg at bedtime, Flonase 2 sprays q.p.m., lorazepam 1 mg IV q. 4 hours p.r.n. anxiety (ordered by me this morning), aspirin 81 mg daily, atorvastatin 80 mg daily, Advair Diskus 1 puff b.i.d., hydrocortisone 15 mg q.a.m., metoprolol tartrate 50 mg p.o. b.i.d., pantoprazole 40 mg b.i.d., ticagrelor 90 mg b.i.d., normal saline with potassium supplement at 80 mL per hour, intravenous heparin by weight base protocol, p.r.n. albuterol, p.r.n. cetirizine, p.r.n. acetaminophen, p.r.n. Maalox, p.r.n. milk of magnesia, p.r.n. Ambien, p.r.n. Zofran, p.r.n. sublingual nitroglycerin, p.r.n. morphine, and p.r.n. MiraLax. ASSESSMENT: 1. Elevated troponin I. No diagnostic ST segment changes of myocardial ischemia or injury. She does have T inversions, which suggest ischemia. These inversions are in the lateral leads. This could represent ischemia in the distribution of LAD diagonal, which was jailed at the time of this stent procedure in November. 2. Recurrent chest and back discomfort. Relieved with oral antacids. She has multiple reasons that she could to have chest pain. Certainly, coronary artery disease and myocardial ischemia could cause chest and back pain. However, she states that the discomfort is different than her prior anginal symptoms. It is relieved with antacids. Cannot exclude that the elevated cardiac enzymes are secondary to demand ischemia secondary to anemia. 3. Chronic iron deficiency anemia secondary to abnormal uterine bleeding. 4. Her abnormal uterine bleeding is under better control now with the IUD and after receiving Depo-Provera injection. 5. The Depo-Provera injection could increase her risk of thromboembolic event. 6. History of pulmonary embolus in January. INR on admission was normal. As stated above Depo-Provera injections could increase her thromboembolic risk. Certainly cannot exclude recurrent pulmonary emboli as an etiology for her symptoms. This could also account for elevation in troponin I. 7. At the time of admission, her INR was normal. She was on warfarin at the time of admission. 8. No evidence of heart failure on exam or chest x-ray. 9. History of severe asthma. No evidence of bronchospasm on exam today. RECOMMENDATIONS AND PLAN: 1. In light of her elevated cardiac enzymes at this time, recommend a repeat cardiac catheterization to assess the status of her coronary arteries and then patency of her stent sites. She is not having any evidence of an ST-elevation myocardial infarction. Thus, there is no emergent need for the procedure to be performed today. It is currently snowing outside. There is no helicopter transport available. Thus, any elective coronary intervention could not be performed. Will tentatively schedule her to undergo cardiac catheterization on the morning of June 06. 2. Continue intravenous heparin. 3. Continue aspirin, ticagrelor, atorvastatin, and metoprolol. 4. Intravenous lorazepam for anxiety. 5. Repeat cardiac enzymes tomorrow. 6. Echocardiogram to assess LV systolic function and wall motion. 7. Topical nitrates for any possible underlying myocardial ischemia. 8. Consider repeat CT angiogram of the lungs to assess for any evidence of recurrent pulmonary emboli. The above assessment and recommendations were discussed with the patient and with Dr. Su. Thank you for asking me to see this patient in cardiology consultation. DIEGO
[2016-06-05] MEDS: HEPARIN 25,000 UNIT/500ML D5W 500 ML IV PRN ×2 (15:14→22:14)
--- NOTE | 2016-06-05 18:31 | ECHOCARDIOGRAM REPORT ---
*NOTICE TO RECEIVING REPUBLICAN AGENCY This information is strictly Confidential and protected under [place] law. [place] law prohibits you from making any further disclosure of this information unless further disclosure is expressly permitted by the written consent of the person to whom it pertains or is authorized by law. A general authorization for the release of medical or other information is not sufficient for this purpose. Hospital accepts no responsibility if the information is made available to any other person, INCLUDING THE PATIENT. Interpretation Summary * Name: ALBIN ALVAREZ Study Date: 06/05/2016 03:14 PM BP: 97/58 mmHg * Patient Location: C.2T\S\S242\S\2 HR: 78 * : 1965 (M/d/yyyy) Gender: Female Height: 62 in * Age: 50 yrs Ethnicity: CA Weight: 181 lb * Ordering Physician: Raul Plaza * Referring Physician: Genaro Mitchell * Performed By: Debby Fried RCS * * Reason For Study: AMI * BSA: 1.8 m2 * -- Conclusions -- * 1. Normal LV size. Normal LV wall thickness. * 2. Normal LV systolic function. LVEF 55-60 %. No regional wall motion abnormalities. * 3. Normal RV size and function. * 4. No significant valvular pathology. * 5. Normal estimated CVP. * 6. Compared with prior study on 04/08/2016: No significant change Procedure Details * A complete two-dimensional transthoracic echocardiogram was performed (2D, M-mode, Doppler and color flow Doppler). Left Ventricle * The left ventricle is grossly normal size. * There is normal left ventricular wall thickness. * Ejection Fraction = 55-60%. * No regional wall motion abnormalities noted. Right Ventricle * The right ventricle is grossly normal size. * The right ventricular systolic function is normal as assessed by tricuspid annular plane systolic excursion (TAPSE) (normal >1.5 cm). Atria * The left atrial size is normal. * Right atrial size is normal. * No ASD detected; PFO is not assessed. Mitral Valve * The mitral valve is grossly normal. * The mitral valve leaflets appear thickened, but open well. * There is no mitral valve stenosis. * Significant mitral regurgitation is absent. * There is trace mitral regurgitation. * There is no mitral regurgitation noted. Tricuspid Valve * The tricuspid valve is not well visualized, but is grossly normal. * There is no tricuspid stenosis. * Significant tricuspid regurgitation is absent. Aortic Valve * The aortic valve opens well. * The aortic valve is trileaflet. * No hemodynamically significant valvular aortic stenosis. * Trace aortic regurgitation. Pulmonic Valve * Pulmonic stenosis is absent. * There is no significant pulmonary regurgitation. Great Vessels * The aortic root and proximal ascending aorta are normal sized. * No Doppler or imaging evidence of an aortic coarctation. Pericardium/Pleural * There is no pericardial effusion. Great Vessels * Normal inferior vena cava size and collapsability with sniff indicates a normal right atrial pressure of 3 mmHg MMode 2D Measurements and Calculations IVSd 1.1 cm IVSs 1.4 cm LVIDd 5.0 cm LVIDs 3.7 cm LVPWd 1.1 cm LVPWs 1.3 cm IVS/LVPW 1.0 FS 25.1 % EDV(Teich) 117.8 ml ESV(Teich) 59.6 ml EF(Teich) 49.5 % EDV(cubed) 124.4 ml ESV(cubed) 52.2 ml EF(cubed) 58.0 % % IVS thick 31.3 % % LVPW thick 20.0 % LV mass(C)d 205.6 grams LV mass(C)dI 112.2 grams/m\S\2 LV mass(C)s 184.8 grams LV mass(C)sI 100.9 grams/m\S\2 SV(Teich) 58.3 ml SI(Teich) 31.8 ml/m\S\2 SV(cubed) 72.2 ml SI(cubed) 39.4 ml/m\S\2 Ao root diam 3.3 cm Ao root area 8.8 cm\S\2 LA dimension 3.2 cm LA/Ao 0.95 LVOT diam 1.9 cm LVOT area 2.7 cm\S\2 LVAd ap4 27.9 cm\S\2 LVLd ap4 7.1 cm EDV(MOD-sp4) 90.2 ml EDV(sp4-el) 93.4 ml LVAs ap4 16.5 cm\S\2 LVLs ap4 5.9 cm ESV(MOD-sp4) 39.1 ml ESV(sp4-el) 39.3 ml EF(MOD-sp4) 56.7 % EF(sp4-el) 57.9 % LVAd ap2 31.9 cm\S\2 LVLd ap2 7.8 cm EDV(MOD-sp2) 105.0 ml EDV(sp2-el) 111.1 ml LVAs ap2 17.3 cm\S\2 LVLs ap2 5.9 cm ESV(MOD-sp2) 41.9 ml ESV(sp2-el) 42.8 ml EF(MOD-sp2) 60.1 % EF(sp2-el) 61.5 % LVLd %diff 9.0 % EDV(MOD-bp) 103.2 ml LVLs %diff 1.0 % ESV(MOD-bp) 41.0 ml EF(MOD-bp) 60.3 % SV(MOD-sp4) 51.1 ml SI(MOD-sp4) 27.9 ml/m\S\2 SV(MOD-sp2) 63.1 ml SI(MOD-sp2) 34.4 ml/m\S\2 SV(MOD-bp) 62.2 ml SI(MOD-bp) 34.0 ml/m\S\2 SV(sp4-el) 54.1 ml SI(sp4-el) 29.5 ml/m\S\2 SV(sp2-el) 68.3 ml SI(sp2-el) 37.3 ml/m\S\2 Doppler Measurements and Calculations MV E max sri 111.6 cm/sec MV A max sri 125.1 cm/sec MV E/A 0.89 MV P1/2t max sri 118.9 cm/sec MV P1/2t 74.7 msec MVA(P1/2t) 2.9 cm\S\2 MV dec slope 466.1 cm/sec\S\2 MV dec time 0.26 sec Ao V2 max 127.1 cm/sec Ao max PG 6.5 mmHg Ao max PG (full) 1.8 mmHg AUDREY(V,A) 2.3 cm\S\2 AUDREY(V,D) 2.3 cm\S\2 LV V1 max PG 4.7 mmHg LV V1 max 108.4 cm/sec PA V2 max 115.4 cm/sec PA max PG 5.3 mmHg
--- NOTE | 2016-06-05 19:00 | DIAGNOSTIC IMAGING REPORT ---
CT ANGIOGRAM OF THE CHEST CLINICAL HISTORY: Atypical chest pain. Myocardial infarction. COMPARISON STUDY: Chest x-ray dated 06/04/2016. Chest CT scans dated 01/18/2016 and 07/06/2010. TECHNIQUE: Following the IV administration of 67 cc of Optiray 320, CT angiogram of the chest was performed from the upper abdomen to the thoracic inlet utilizing the pulmonary embolus protocol. Images are reviewed in the axial, sagittal, and coronal planes. 3-D MIPS images are created and assessed. IV contrast was administered without complication. CT DOSE: 605.66 mGy.cm FINDINGS: Thyroid: Imaged portions of the thyroid gland are normal in size and attenuation. Thoracic aorta: The thoracic aorta is normal in caliber and demonstrates standard 3-vessel arch anatomy. No dissection is seen. Pulmonary vasculature: The pulmonary trunk is normal in caliber. There are no filling defects identified in main, lobar, or segmental pulmonary branches to suggest pulmonary embolus. Heart: The heart is top normal in size and there is trace pericardial fluid. The coronary arteries are densely calcified. A right internal jugular central venous infusion port is in place. Lungs and pleural spaces: The lungs and pleural spaces are clear. Mediastinum: There is no mediastinal lymphadenopathy. Radha: Clear. Axillae: There is no axillary lymphadenopathy. Upper abdomen: Cholecystectomy clips are noted. There is a small hiatal hernia. Wall thickening is suggested in the esophagus. Skeletal structures: No lytic or blastic bony lesions are seen. IMPRESSION: 1. There is no evidence of pulmonary embolus in the main, lobar, or segmental pulmonary arteries. 2. The lungs are clear. 3. There is a small hiatal hernia with circumferential wall thickening suggested in the distal esophagus. Correlate clinically for evidence of esophagitis. This could be further assessed with endoscopy if clinically warranted. Electronically signed by: Nilson Hahn M.D. 06/05/2016 6:59 PM Dictated Date/Time: 06/05/2016 6:54 PM
[2016-06-05] MEDS: SUCRALFATE 1 GM/10 ML UDC PO SCH (21:34)
[2016-06-05] MEDS: FLUTICASONE PROPIONATE NA SPR 16 GM BTL NAE SCH (21:34)
[2016-06-05] MEDS: CITALOPRAM 20 MG TAB PO SCH (21:35)
--- NOTE | 2016-06-05 22:16 | Progress Note ---
Subjective Date of Service: Jun 05, 2016. Subjective Pt evaluation today including: conversation w/ patient, physical exam, chart review, lab review, review of studies (CTA PE protocol), conversation w/ supply chain consultant (cardiology - Mela), review of inpatient medication list Pain: no chest pain today; no abd pain today PO Intake: normal today Voiding: no voiding problems telemetry normal since admission she states her chest pain over the last week was more so like her previous [place] events but the sob she has had recently was similar to PE and similar to MIs has had recent GERD symptoms as well had IUD placed by recreational facilities motel manager recently and menses are much better Problem List Medical Problems: (1) Acute [place] Status: Acute (2) Anemia Status: Acute (3) Benzodiazepine withdrawal with complication Status: Acute (4) Coagulopathy Status: Acute (5) Dysfunctional uterine bleeding Status: Acute (6) Elevated troponin Status: Acute (7) Episode of heavy vaginal bleeding Status: Acute (8) Hypotension Status: Acute (9) Nausea & vomiting Status: Acute (10) NSTEMI (non-ST elevated myocardial infarction) Status: Acute (11) Right-sided chest pain Status: Acute (12) Seizure-like activity Status: Acute (13) Uterine bleeding Status: Acute Review of Systems Constitutional: No fever Respiratory: + dyspnea on exertion, No cough, No dyspnea at rest, No shortness of breath Cardiac: No PND, No chest pain, No orthopnea Abdomen: No nausea, No pain, No vomiting Objective Vital Signs Date Time Temp Pulse Resp B/P Pulse Ox O2 Delivery O2 Flow Rate FiO2 06/05/16 21:57 36.5 66 16 110/70 97 Room Air 06/05/16 20:00 Room Air 06/05/16 19:40 36.5 66 16 110/70 97 Room Air 06/05/16 16:00 95 Room Air 06/05/16 15:39 36.5 71 18 97/58 95 Room Air 06/05/16 12:11 36.5 67 18 104/50 92 Room Air T-piece 06/05/16 12:00 98 Room Air 06/05/16 11:52 36.7 74 18 124/72 97 Room Air 06/05/16 08:42 76 103/66 95 06/05/16 08:40 74 125/84 96 Room Air 06/05/16 08:04 36.8 62 20 116/74 97 Room Air 06/05/16 08:00 97 Room Air 06/05/16 05:28 36.4 64 18 119/79 98 06/05/16 05:10 36.5 72 18 117/75 98 06/05/16 04:08 36.5 60 18 111/72 98 06/05/16 04:00 36.5 60 18 111/72 98 Room Air 06/05/16 04:00 98 Room Air 06/05/16 03:25 36.4 64 18 115/73 97 06/05/16 02:56 36.5 73 18 108/66 98 06/05/16 02:41 36.5 64 18 117/77 98 06/05/16 02:28 36.5 59 18 117/73 97 06/05/16 01:35 36.6 57 18 115/72 97 06/05/16 00:52 99 Room Air 06/05/16 00:49 36.5 69 18 122/79 06/05/16 00:35 36.8 59 18 102/66 98 06/05/16 00:03 36.5 69 18 122/79 99 06/04/16 23:42 62 62 106/72 18 06/04/16 23:41 36.8 62 18 106/72 18 06/04/16 23:28 36.8 57 16 119/72 98 06/04/16 23:21 36.6 57 18 123/70 98 06/04/16 22:34 57 16 113/73 99 Room Air 06/04/16 22:15 67 Physical Exam General Appearance: no apparent distress ENT: pharynx normal Neck: no JVD Respiratory/Chest: lungs clear, no respiratory distress, no accessory muscle use Cardiovascular: regular rate, rhythm, no gallop, no murmur Abdomen: normal bowel sounds, non tender, soft, no organomegaly Extremities: no pedal edema Neurologic/Psychiatric: alert, oriented x 3 Laboratory Results Last 24 Hours Test 06/05/16 02:25 06/05/16 04:43 06/05/16 06:10 06/05/16 11:00 Troponin I 2.370 ng/ml 2.130 ng/ml Activated Partial Thromboplast Time 67.6 SECONDS Partial Thromboplastin Ratio 2.6 Hemoglobin 10.9 g/dL Hematocrit 33.9 % Sodium Level 143 mmol/L Potassium Level 3.5 mmol/L Chloride Level 110 mmol/L Carbon Dioxide Level 23 mmol/L Anion Gap 10.0 mmol/L Blood Urea Nitrogen 9 mg/dl Creatinine 1.00 mg/dl Est Creatinine Clear Calc Drug Dose 66.9 ml/min Estimated GFR () 76.1 Estimated GFR (Non- 65.6 BUN/Creatinine Ratio 9.2 Random Glucose 102 mg/dl Calcium Level 7.9 mg/dl Vitamin B12 Level 435 pg/mL Folate 9.55 ng/mL Assessment and Plan 50yo female with: 1. chest pain with positive troponin in setting of established CAD - unknown if type 1 or type 2 [place]. Plan - * obtained CTA chest to r/o PE in light of subtherapeutic INR, dyspnea, and previous h/o PE -- fortunately negative for PE * cardiac cath tomorrow by Dr. Plaza * heparin drip in meantime * continue other cardiac meds - BB, statin, brilinta, etc * NPO after MN 2. chronic iron deficiency anemia - s/p 2 units PRBCs overnight due to concern that Hb of about 9 was exacerbating her chest pain. Repeat H/H this afternoon improved with no suggestion of any active bleeding. Follows with hematology for Fe infusions. 3. 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 Spoke with Dr. Erickson who manages her coumadin -- warfarin level ordered from her admission blood work. Previous INR was therapeutic per oral communication. hold warfarin due to cardiac cath tomorrow heparin drip in meantime 4. known GERD with distal esophageal thickening on CT - could be esophagitis. already on PPI twice daily. add carafate QID. 5. asthma - stable, not in exacerbation 6. CAD with prior MIs - see #1 above appreciate cardiology consultation cont cardiac meds as above 7. chronic adrenal insufficiency - on hydrocortisone - continue such. no stress dose steroids at this time 8. DVT proph - systemic heparin infusion await cardiac cath in AM Continued [facility] stay due to: multiple IV medications needed Discharge planning: home
[2016-06-06] VITALS (11 sets, daily range): BP systolic 98–126; BP diastolic 58–79; PULSE 68–80; TEMP 36.3–36.7; O2SAT 94–98
[2016-06-06] MEDS: NITROGLYCERIN OINT 2% 1GM PACKET EXT SCH ×4 (00:14→18:00)
[2016-06-06 05:47] LABS: HEMATOCRIT 33.8 % (37-47); MEAN CELL VOLUME 79.2 fL (80-100); MEAN CORPUSCULAR HEMOGLOBIN 25.1 pg (25-34); MEAN PLATELET VOLUME 9.8 fL (7.4-10.4); PLATELET COUNT 313 K/uL (130-400); RED BLOOD COUNT 4.27 M/uL (4.2-5.4); WHITE BLOOD COUNT 8.07 K/uL (4.8-10.8)
[2016-06-06 06:01] LABS: PARTIAL THROMBOPLASTIN RATIO 1.6
[2016-06-06 06:03] LABS: MEAN CORPUSCULAR HGB CONC 31.7 g/dl (32-36)
[2016-06-06 06:17] LABS: BUN/CREATININE RATIO 6.5 (10-20); CALCIUM 8.3 mg/dl (8.5-10.1); POTASSIUM 3.5 mmol/L (3.5-5.1)
[2016-06-06] MEDS ORDERED: HEPARIN IV BOLUS 5,000 UNIT in SYRINGE 0 ML IV ONE (06:30)
[2016-06-06] MEDS: HEPARIN 25,000 UNIT/500ML D5W 500 ML IV PRN (06:36)
[2016-06-06] MEDS: TICAGRELOR 90 MG TAB PO SCH ×2 (08:05→13:44)
[2016-06-06] MEDS: ASPIRIN 81 MG ECTAB PO SCH ×2 (08:06→13:44)
[2016-06-06] MEDS: HYDROCORTISONE 10 MG TAB PO SCH (08:06)
[2016-06-06] MEDS: SUCRALFATE 1 GM/10 ML UDC PO SCH ×4 (08:06→20:01)
[2016-06-06] MEDS: ATORVASTATIN 40 MG TAB PO SCH (08:06)
[2016-06-06] MEDS: METOPROLOL TARTRATE 50 MG TAB PO SCH ×2 (08:07→20:00)
[2016-06-06] MEDS: PANTOprazole SOD 40 MG TAB PO SCH ×2 (08:07→20:00)
--- NOTE | 2016-06-06 08:57 | Procedure Note ---
Pre-Mod Sedation Assessment General Date of Moderate Sedation: Jun 06, 2016. Vital Signs: Vital Signs Past 12 Hours Date Time Temp Pulse Resp B/P Pulse Ox O2 Delivery O2 Flow Rate FiO2 06/06/16 07:28 36.7 70 14 98/59 95 Room Air 06/06/16 04:00 Room Air 06/06/16 03:06 36.5 68 18 116/70 94 Room Air 06/05/16 23:59 Room Air 06/05/16 23:31 36.7 77 18 125/70 98 Room Air 06/05/16 21:57 36.5 66 16 110/70 97 Room Air Review Cardiovascular: regular rate, rhythm, no edema, no gallop, no JVD, no murmur, normal peripheral pulses Abdomen: normal bowel sounds, non tender, soft, no organomegaly, no pulsatile mass Lungs: lungs clear Pre-Sedation Airway Assessment Oral Cavity: WNL Able to Visualize Vocal Cords: No Short Thick Neck: No Hx of Sleep Apnea: No Smoking Status: Never Smoker Mallampati Classification: Class III ASA Classification: Class II Procedure Planning Contraindications-for Mod Sed: None Yes Notes The planned sedation has been discussed with the patient and consent obtained. I have identified the patient, determined the appropriateness of sedation and have assessed the patient immediately prior to the procedure. All medicine(s) and interventions are by my order.
[2016-06-06] MEDS: FLUTICASONE/SALMETEROL (ADVAIR) 500/50 INH 14 PUFF INH SCH ×2 (09:00→19:59)
--- NOTE | 2016-06-06 09:44 | CARDIOLOGY PROGRESS NOTE ---
DATE: 06/06/2016 DATE: 06/06/2016. SUBJECTIVE: The patient was seen by me this morning in the telemetry room. She states that overnight and this morning she has had no chest pain or back pain. No other pains. No dyspnea or wheezing. No pulmonary complaints this morning. No abdominal pain or nausea. No lightheadedness or syncope. No leg pain. She states that sometimes when she eats food she feels that it gets stuck in her chest. Sometimes when she eats meals her chest pain improves. She states that approximately 30 minutes later it can sometimes then return. MEDICATIONS: This morning are citalopram 20 mg at bedtime, Flonase 2 sprays daily, sucralfate 1 gram q.i.d., nitroglycerin ointment 0.5 inch q. 6 hours, aspirin 81 mg daily, atorvastatin 80 mg daily, Advair Diskus 1 puff b.i.d., hydrocortisone 15 mg daily a.m., metoprolol tartrate 50 mg b.i.d., pantoprazole 40 mg b.i.d., ticagrelor 90 mg b.i.d., intravenous heparin by weight based protocol, and several p.r.n. medications. ALLERGIES: MULTIPLE. PLEASE SEE EHR. No contrast dye allergy. PHYSICAL EXAMINATION: GENERAL: The patient is lying in her bed. No distress. VITAL SIGNS: Oral temperature this morning 36.7, pulse 70, blood pressure 98/59, pulse oximetry room air 95%. NECK: No jugular venous distention. LUNGS: Clear. Normal respiratory effort. No rales or wheezes. HEART: Regular rate and rhythm. S1, S2 normal. No S3 or S4. No murmur or rub. ABDOMEN: Soft. Nontender. No palpable masses or organomegaly. No bruits. EXTREMITIES: No pretibial edema. No calf tenderness. NEUROLOGIC: Alert and oriented x3. Motor grossly intact. PSYCHIATRIC: Affect normal. DATA: Echocardiogram performed yesterday revealed normal LV size and systolic function. No regional wall motion abnormalities. No significant valvular abnormalities. Chest CT scan performed yesterday with contrast revealed no evidence of pulmonary embolus. There was a small hiatal hernia with circumferential wall thickening suggesting esophagitis in the distal esophagus. CBC today with hemoglobin 10.7, hematocrit 33.8. Platelet count 313. PTT 40.5. Metabolic profile with sodium 144, potassium 3.5, chloride 111, carbon dioxide 24, BUN 7, creatinine 1.00, random glucose 102. Troponin I 1.030. ASSESSMENT: 1. No further chest pain since yesterday. CT scan of the chest negative for evidence of pulmonary embolus. Thus, this has been excluded as an etiology for her symptoms. She does have a history of coronary artery disease. Cardiac enzymes were elevated on this admission. Electrocardiogram without any localizing ischemic changes. The echocardiogram without any segmental wall motion abnormalities. Certainly cannot exclude myocardial ischemia as etiology for some of her chest pain and back pain symptoms. However, the symptoms were different than her prior anginal symptoms. The troponin I's may have been elevated secondary to demand ischemia. I do not suspect an acute coronary process with the normal wall motion on echo and the electrocardiograms without diagnostic ischemic ST abnormalities. Troponin I this morning has decreased from yesterday. 2. Evidence of esophagitis on CT scan of the chest. Certainly cannot exclude esophageal etiology to her chest pain and back pain. 3. Hemoglobin increased after transfusion of 2 units packed red blood cells. History of chronic iron deficiency anemia. Iron deficiency anemia secondary to severe abnormal uterine bleeding. PLAN: 1. Cardiac catheterization today to exclude the presence of any significant underlying coronary artery disease. This would be restenosis or new atherosclerotic plaque. Doubt that she has any intracoronary thrombus. 2. Consider GI consultation for evaluation of esophageal disorder. 3. Further cardiac recommendations and plans will be based upon the results of the coronary angiograms. ADDENDUM: The patient has a longstanding history of severe asthma. No current evidence of bronchospasm on exam. No symptoms of bronchospasm. [facility]
[2016-06-06 13:25] LABS: PARTIAL THROMBOPLASTIN RATIO 3.6
[2016-06-06] MEDS ORDERED: MIDAZOLAM HCL 1 MG/ML 2ML VIAL ONE ×2 (15:00→15:32)
[2016-06-06] MEDS ORDERED: FENTANYL CITRATE INJ 50 MCG/1 ML 2 ML VIAL ONE (15:32)
[2016-06-06] MEDS ORDERED: NiCARDipine HCL INJ 2.5 MG/ML 10 ML AMP ONE (15:32)
[2016-06-06] MEDS ORDERED: HEPARIN SOD (PORCINE) 1000 UNIT/ML 10 ML VIAL ONE (15:32)
[2016-06-06] MEDS ORDERED: NITROGLYCERIN/D5W 100MCG/ML 20ML SYR ONE (15:33)
[2016-06-06] MEDS ORDERED: SODIUM CHLORIDE 0.9% 1000ML 250 ML IV PRN (15:36)
--- NOTE | 2016-06-06 15:44 | Procedure Note ---
Post-Mod Sedation Assessment General Date of Moderate Sedation Jun 06, 2016. Vital Signs: Vital Signs Past 12 Hours Date Time Temp Pulse Resp B/P Pulse Ox O2 Delivery O2 Flow Rate FiO2 06/06/16 12:00 95 Room Air 06/06/16 11:40 36.6 80 16 126/74 97 Room Air 06/06/16 10:35 36.7 76 16 103/58 96 Room Air 06/06/16 08:55 96 Room Air 06/06/16 07:28 36.7 70 14 98/59 95 Room Air 06/06/16 04:00 Room Air Review - Discharge Criteria Vital Signs Stable: Yes Alert/Oriented/Conversant: Yes Returned to Baseline Mental St: Yes Nausea Absent/Minimal: Yes Pain/Discomfort/Absent/Minimal: Yes Normal/Baseline Respirations: Yes Active Bleeding?: No Pt Received D/C Instructions: N/A Prescriptions Given: None Specific Proced. D/C Criteria Distal Pulses Present (Cardiac: Yes Groin site assessed-Card Cath: N/A Voided Prior To Discharge: N/A Discharged Patients Adult Escort/Transportation: N/A
[2016-06-06] MEDS ORDERED: ACETAMINOPHEN 325 MG TAB PO PRN (15:45)
[2016-06-06] MEDS ORDERED: ATROPINE SULFATE 0.1 MG/ML 5ML SYR IV PRN (15:45)
--- NOTE | 2016-06-06 16:03 | Cardiac Catheterization ---
Procedure Note Procedure Date Jun 06, 2016. Pre-Procedure Diagnosis Non STEMI, CAD AUC Score 7 Post-Procedure Diagnosis Mild CAD (Mild ostial LAD diagonal stenosis. Patent RCA,LAD stents.) Procedure(s) Performed Coronary Angiography, Left Heart Cath Customer Experience Consultant Dr. Plaza Unit Supervisor(s) GEOFF Santacruz Estimated Blood Loss 15 ml Medication(s) Fentanyl, Heparin, Nicardipine, Versed, Lidocaine 1% Summary of Findings Catheterization site: 6 Fr [place] Slender right radial artery. Complications: none. Hemostasis: Terumo TR band. Findings: patent proximal -mid LAD stents, patent mid RCA stent. 30% ostial LAD diagonal stenosis. Hemodynamics Rest Ao: 105/68/85 mm Hg Final Ao: 114/69/91 mm Hg LV: 105/13 mm Hg Recommendations Medical therapy and/or Counseling Specimens None Radiation Exposure (mGy) 718 Contrast (mls) 70 ml Visipaque Fluids (cc crystalloids) 70 Drains None Anesthesia IV versed,fentanyl. Lidocaine 1% local. Procedural Complication(s) None ACC Data Cardiac Status Clinical evaluation leading to the procedure CAD Presntation: Non STEMI Anginal Classification: CCS IV (Chest pain at rest. ) Heart Failure: No Cardiogenic Shock w/in 24Hrs: No Cardiac Arrest w/in 24Hrs: No Imaging studies past 6 months: Yes Stress studies past 6 months: No Standard Exercise Stress Test: No Stress Echocardiogram: No Stress Testing w/SPECT MPI: No Cardiac CTA: No Coronary Anatomy Dominant: Right Left Main (% Stenosis): Normal LAD (% Stenosis): Proximal, Mid (Patent proximal -mid LAD stent. Step up and stepdown prior and distal to stent respectively.) D1 (% Stenosis): Ostial (30) Circumflex (% Stenosis): Normal OM1 (% Stenosis): Normal OM2 (% Stenosis): Normal RCA (% Stenosis): Mid (patent mid RCA stent. ) Ramus (% Stenosis): Normal Left Ventricular Angiography EF (%): NA Diagnostic Status: Elective (zodal) Closure Device Closure Device: Radial Band Recommendations: Medical therapy and/or Counseling
[2016-06-06] MEDS ORDERED: CRFUDL PO (18:48)
--- NOTE | 2016-06-06 19:07 | Discharge Instructions ---
Discharge Instructions Admission Reason for Admission: Anemia, Chest pain Discharge Discharge Diagnosis / Problem: Severe GERD as likely cause of your chest pain Discharge Goals Goal(s): Learn about illness, Diagnostic testing, Therapeutic intervention Activity Recommendations Activity Limitations: as noted below ACTIVITY RECOMMENDATIONS following your heart catheterization: Excess manipulation of the RIGHT wrist should be avoided for the next 24- 48 hours. * No lifting over 2 pounds (approximately a 1/2 gallon of milk) with the RIGHT arm for 24 hours. * No strenuous activity such as bowling or tennis for 3 days. * Keep the site of the procedure covered with a bandage for 24 hours. * You may shower the day after the procedure. However, do NOT take a tub bath or submerge the puncture site in water for the next 3 days. * Do not operate any motorized equipment for 3 days. This includes driving a car. SPECIAL CARE INSTRUCTIONS: The site may be slightly bruised and sore following your procedure. Should any of the following occur, contact the Dr. who performed your procedure. 1. Redness/inflammation, swelling, chills, or fever, or colored drainage at procedure site within 3-7 days after your procedure. 2. Coldness, discoloration, ongoing numbness, severe pain, or swelling. Expect mild tingling of hand and tenderness at the puncture site for up to three days. If this persists beyond three days, or other symptoms develop, notify the Dr. who performed your procedure. BLEEDING: If the procedure site on your wrist begins to bleed, do not panic 1. Place 1 or 2 fingers firmly just slightly above the insertion site to stop the bleeding. You may be able to feel your pulse as you hold pressure. 2. Lift your finger after 5 minutes to see if the bleeding has stopped. 3. Once the bleeding has stopped, gently wipe the wrist area clean with a bandage. * If the bleeding from your wrist does not stop after 10 minutes, or if there is a large amount of bleeding or spurting, call 911 (do not drive yourself to the hospital). SKIN IRRITATION: * You may experience some redness and/or swelling in the area where radiation was administered. If any skin irritation occurs, please contact your family physician. . Instructions / Follow-Up Instructions / Follow-Up From Dr. Su: 1. It is suspected that your recent chest pain was related to severe heartburn/ GI troubles as your heart catheterization as well as the CAT scan were normal with the exception of the esophagus appearing inflamed. 2. For your GERD (reflux disease) / heart burn please do the following - * TAKE your protonix twice daily religiously * take the AM dose on an empty stomach, and take the PM dose as you are going to bed * START carafate liquid 1 gram prior to meals and at bedtime; new prescription faxed to [facility] @ [facility] * avoid the following foods - * spicy foods, fried foods, fast foods, acidic foods (red sauces, etc), chocolate, etc * limit or stop the following liquids - * alcohol (all forms), caffeinated beverages including coffee/tea/dark sodas, energy drinks (Monster, etc) * it is likely that aspirin/Brilinta/etc are also contributing to your upper GI symptoms 3. We will be referring you to [facility]. They will likely want to perform an EGD (upper endoscopy) to look in your esophagus & stomach. We will contact you with the appointment date/time. 4. Coumadin schedule - * Take coumadin as follows - * 06/06/16 - take 10mg * , 06/07/16 - take 10mg * 06/08/16 and thereafter - follow your usual schedule of 5mg doses and 7.5mg doses as previously recommended by the [facility] / Dr. Erickson * Please call the [facility] tomorrow to schedule a visit with them for EARLY NEXT WEEK 5. Continue to follow with the hematology team for your iron deficiency anemia. 6. See Dr. Mitchell, family doctor, within 1 week. 7. Return to [facility] IF - * you experience recurrent chest pain that will not stop despite use of nitroglycerin * black/dark appearing stools (this would suggest bleeding from the stomach or esophagus) * severe abdominal pain not responding to antacids or your acid vegetable tier medication * shortness of breath at rest or with activity, especially if getting worse Current Hospital Diet Patient's current hospital diet: AHA Diet (Heart Healthy) Discharge Diet Recommended Diet: AHA Diet (Heart Healthy) Procedures Procedures Performed: 1. CAT scan of the lungs showing NO blood clots but evidence of a small hiatal hernia and suspected inflammation of the lower portion of the esophagus. 2. Heart catheterization - NORMAL coronary arteries and the stents are open/patent/not blocked. 3. Transfusion of 2 units of red cells. Pending Studies Studies pending at discharge: no Medical Emergencies . Who to Call and When: Medical Emergencies: If at any time you feel your situation is an emergency, please call 911 immediately. . Non-Emergent Contact Non-Emergency issues call your: Hand Stemmer Call Non-Emergent contact if: temperature is above 100.5, your pain is not controlled, your pain is worsening, your pain is unusual for you, your pain is concerning you, wound has increased redness (wrist ), wound has increased pain ( wrist ), you have any medication questions . . "Provider Documentation" section prepared by Genaro Su. VTE Core Measure Inpt VTE Proph given/why not?: Other Anticoagulation
[2016-06-06] MEDS: FLUTICASONE PROPIONATE NA SPR 16 GM BTL NAE SCH (19:59)
[2016-06-06] MEDS: CITALOPRAM 20 MG TAB PO SCH (20:00)
--- NOTE | 2016-06-12 00:53 | Discharge Summary ---
Discharge Summary Admission Date: Jun 04, 2016 at 23:03 Discharge Date: Jun 06, 2016 Discharge Disposition: Home Principal Diagnosis: chest pain likely 2nd to upper GI source Problems/Secondary Diagnoses: 1. CAD with prior h/o IA 2. recent h/o PEs 3. asthma 4. GERD 5. abnormal chest CT with findings concerning for esophagitis 6. chronic iron deficiency anemia 2nd to dysfunctional uterine bleeding 7. hyperlipidemia 8. positive troponin - likely type 2 IA / myocardial demand ischemia Immunizations: Have You Had Influenza Vaccine: Unknown Influenza Vaccine Date: Feb 24, 2006 History of Tetanus Vaccine?: Unknown History of Pneumococcal: Unknown History of Hepatitis B Vaccine: No Procedures: 1. PRBCs x 2 units 2. echocardiogram - 1. Normal LV size. Normal LV wall thickness. 2. Normal LV systolic function. LVEF 55-60 %. No regional wall motion abnormalities. 3. Normal RV size and function. 4. No significant valvular pathology. 5. Normal estimated CVP. 6. Compared with prior study on 04/08/2016: No significant change 3. CTA chest - 1. There is no evidence of pulmonary embolus in the main, lobar, or segmental pulmonary arteries. 2. The lungs are clear. 3. There is a small hiatal hernia with circumferential wall thickening suggested in the distal esophagus. Correlate clinically for evidence of esophagitis. This could be further assessed with endoscopy if clinically warranted. 4. cardiac catheterization - Raul Plaza MD PATENT VESSELS Coronary Anatomy Dominant: Right Left Main (% Stenosis): Normal LAD (% Stenosis): Proximal, Mid (Patent proximal -mid LAD stent. Step up and stepdown prior and distal to stent respectively.) D1 (% Stenosis): Ostial (30) Circumflex (% Stenosis): Normal OM1 (% Stenosis): Normal OM2 (% Stenosis): Normal RCA (% Stenosis): Mid (patent mid RCA stent. ) Ramus (% Stenosis): Normal Consultations: cardiology - Raul Plaza MD Medication Reconciliation New Medications: Sucralfate (Sucralfate) 1 Gm/10 Ml Susp 1 GM PO QID for 14 Days, #560 ML 1 Refill take 30 minutes before meals & at bedtime. Continued Medications: Albuterol (Ventolin Hfa) 60 Puffs/5400 Mcg Aers 2 PUFFS INH Q6H PRN for Asthma Symptoms Aspirin (Aspirin Ec) 81 Mg Tab 81 MG PO QAM Atorvastatin (Lipitor) 80 Mg Tab 80 MG PO DAILY, TAB Cetirizine (Zyrtec) 10 Mg Tab 10 MG PO DAILY PRN for Allergy Symptoms, TAB Citalopram Hydrobromide (Citalopram Hydrobromide) 20 Mg Tab 20 MG PO HS, TAB Fluticasone Prop/Salmeterol (Advair Diskus 500/50 60 Dose) 1 Ea Aerp 1 PUFF INH BID, INHALER Fluticasone Propionate (Nasal) (Flonase Allergy Relief) 50 Mcg/Act Spr 2 SPRAYS JAY QPM Hydrocortisone (Cortef) 10 Mg Tab 15 MG PO QAM, TAB Metoprolol Tartrate (Lopressor) (Lopressor) 50 Mg Tab 50 MG PO BID, TAB Mupirocin (Bactroban) 15 Gm Cr 1 APPLN TOP UD PRN for Cold Sores Nitroglycerin (Nitrostat) 0.4 Mg Tab 0.4 MG UT UD PRN for Chest Pain, BTL Pantoprazole (Protonix) 40 Mg Tab 40 MG PO BID Ticagrelor (Brilinta) 90 Mg Tab 90 MG PO BID Warfarin Sod (Jantoven) 5 Mg Tab 5 MG PO 5XWK, TAB TAKE 5 MG EVERY SATURDAY,SATURDAY,SATURDAY,SATURDAY AND SATURDAY OR OTHERWISE DIRECTED TO TAKE BY ANTICOAGLATION CLINIC/MD Warfarin Sod (Jantoven) 5 Mg Tab 7.5 MG PO 2XWK, TAB TAKE 7.5 MG EVERY SATURDAY AND SATURDAY OR OTHERWISE DIRECTED TO TAKE BY ANTICOAGLATION CLINIC/MD Referrals At Discharge Follow up Referrals: [facility] Referral - First Available with Darrel Duggan D.O. Discharge Exam Physical Exam: General Appearance: WD/WN, no apparent distress ENT: pharynx normal Neck: no JVD Respiratory/Chest: lungs clear, no respiratory distress, no accessory muscle use Cardiovascular: regular rate, rhythm, no gallop, no murmur, normal peripheral pulses Abdomen / GI: normal bowel sounds, non tender, soft, no organomegaly Extremities: no pedal edema Neurologic/Psychiatric: alert, oriented x 3 Skin: + pertinent finding (right wrist - no hematoma, no significant ecchymoses ) Hospital Course HISTORY OF PRESENT ILLNESS: 50yo female with severe CAD, s/p STEMI 11/2015 leading to two catheterizations and placement of SHARON x 2 to LAD and one in the RCA. She suffers from iron deficiency anemia due to chronic heavy menstrual bleeding and has had previous episodes of chest pain and troponin elevation related to anemia and demand ischemia. She also has a history of recent PEs for which she is on Coumadin. She presented with central chest pain described as burning and GERD-like. No associated N/V, SOB or diaphoresis. Initial labs revealed a troponin elevation . Initial EKG showed new T wave inversions in lead V5 but was otherwise unchanged. Her INR was slightly subtherapeutic on admission. HOSPITAL COURSE: 1. chest pain with positive troponin in setting of established CAD - peak troponin was just over 2. This represented myocardial demand ischemia rather than true ACS. CTA chest was negative for PE but did show thickening of the distal esophagus. Cardiac cath by Dr. Plaza showed patent coronaries. Given the normal cardiac cath results it was felt that her presenting chest pain was likely GI in origin (see below). 2. chronic iron deficiency anemia - due to the elevated troponin and initial concern for ACS she received 2 units PRBCs without incident. She had no overt GI or bleeding while here. Discharge hemoglobin was 10.7. She will continue to follow with gynecology for her history of heavy menses as well as hematology for iron infusions. In retrospect it was felt that her chronic anemia did NOT precipitate her chest pain prior to admission. 3. h/o DVT with PE - on chronic coumadin since fall 2015. Presenting INR was 1.1; noncompliance with coumadin was suspected. She will take 10mg daily for 2 days following discharge, then resume her previous coumadin regimen. She was advised to see Dr. Erickson in the coumadin clinic within 5 days of discharge. 4. known GERD with distal esophageal thickening on CT - in light of her negative CTA chest for PE(s) as well as normal cardiac catheterization it was felt that GERD could have been the cause of her chest symptoms prior to admission. She was already on PPI twice daily and thus QID carafate was added. It was recommended that she follow-up with [facility] for consideration of EGD shortly after discharge. She was given counseling on dietary changes to avoid exacerbating her GERD including limitation of caffeine, avoiding certain foods (e.g. fried foods), etc. All other medical problems remained stable while here. Total Time Spent: Greater than 30 minutes This includes examination of the patient, discharge planning, medication reconciliation, and communication with other providers. Discharge Instructions Please refer to the electronic Patient Visit Report (Discharge Instructions) for additional information. Follow-Up 1. [facility] - Renae LAROSE on SaturdayJune 11 at 3:20 pm 2. [facility] Cardiology - Dr. Raul Plaza - in 2-[address] Genaro Mitchell, PCP, within 1 week 4. [facility] Coumadin clinic within 5 days Additional Copies To Genaro Mitchell M.D.; Renae Zuleta,C.R.N.P.; Raul Plaza M.D.
[2016-06-13] MEDS ORDERED: ZNTT/150 PO (15:05)
[2016-06-18] MEDS ORDERED: SUCR1TAB29 PO (07:53)
[2016-07-27] MEDS ORDERED: CITA20TA4 PO (00:03)
[2016-07-27] MEDS ORDERED: ASPI81TA28 PO (06:25)
[2016-07-27] MEDS ORDERED: ATOR-26 PO (06:26)
[2016-07-27] MEDS ORDERED: HYD10 PO ×2 (09:05→15:25)
[2016-07-27] MEDS ORDERED: TICA1TAB PO (11:35)
[2016-07-27] MEDS ORDERED: CETI10TA84 PO (11:50)
[2016-07-28] MEDS ORDERED: PRED-301 PO ×2 (14:33→14:51)
[2016-07-28] MEDS ORDERED: PRED10TA PO (14:33)
== END 2016-06-06 20:15 | disposition home or self-care (01) | DRG 287 ==
LOC: ENRESERVDT → ENRESERVTM → C.EDB 19:21 → C.2T 23:03
PROVIDERS: ADMIT Internal Medicine; ATTEND Internal Medicine
PROC: 4A023N7 Measurement of Cardiac Sampling and Pressure, Left Heart, Percutaneous Approach (ICD-10-PCS; principal; 2016-06-06 15:31)
PROC: B2111ZZ Fluoroscopy of Multiple Coronary Arteries using Low Osmolar Contrast (ICD-10-PCS; principal; 2016-06-06 15:31)
DX: R07.9 Chest pain, unspecified (principal); I24.8 Other forms of acute ischemic heart disease; E27.40 Unspecified adrenocortical insufficiency; T38.0X5A Adverse effect of glucocorticoids and synthetic analogues, initial encounter; D50.0 Iron deficiency anemia secondary to blood loss (chronic); N93.8 Other specified abnormal uterine and vaginal bleeding; K21.0 Gastro-esophageal reflux disease with esophagitis; R79.1 Abnormal coagulation profile; I25.10 Atherosclerotic heart disease of native coronary artery without angina pectoris; T82.897S Other specified complication of cardiac prosthetic devices, implants and grafts, sequela; Y71.2 Prosthetic and other implants, materials and accessory cardiovascular devices associated with adverse incidents; J45.909 Unspecified asthma, uncomplicated; E78.5 Hyperlipidemia, unspecified; F32.9 Major depressive disorder, single episode, unspecified; F41.9 Anxiety disorder, unspecified; I25.2 Old myocardial infarction; Z86.711 Personal history of pulmonary embolism; Z86.718 Personal history of other venous thrombosis and embolism; Z87.892 Personal history of anaphylaxis; Z88.8 Allergy status to other drugs, medicaments and biological substances; Z82.49 Family history of ischemic heart disease and other diseases of the circulatory system; Z79.82 Long term (current) use of aspirin; Z79.51 Long term (current) use of inhaled steroids; Z79.01 Long term (current) use of anticoagulants

== ENCOUNTER → 2016-06-22 | Day surgery (SDC) | payer BC ==
[2016-06-18 07:56] VITALS: BMI 33.0
--- NOTE | 2016-06-18 11:41 | Anesthesiology Progress Note ---
Anesthesia Progress Note Date of Service Jun 18, 2016. Progress Notes Patient scheduled for EGD on 06/22/16 for evaluation of iron deficiency anemia and epigastric pain. Patient status post recent blood transfusion with 2 units PRBC's. Patient does also have complaint of vaginal bleeding. Patient noted to have two drug eluding stents placed 11/2015 (to LAD and RCA). Patient discharged on Brillanta and ASA. Also, noted to have pulmonary embolism 01/2016- subsequently started on coumadin. Subsequent cardiac cath done 06/06/16 with [address]ents. Per Dr. Kay (surgeon's office), patient is to follow with prescribing physician for recommendations of coumadin, ASA, Brillanta. for EGD. Per Sue at surgeon's office, Dr. Kay is okay with patient continuing ASA and Brillanta perioperatively. Patient was advised to check with Dr. Plaza for recommendations regarding her ASA and Brillanta (she has already received coumadin instructions). Discussed with Dr. Nabor Washburn who states okay for patient to continue with EGD from anesthesia perspective provided that she continue ASA perioperatively. Surgeon's office made aware of anesthesia recommendations. Carleen Cowan PA-C 06/18/16
[~2016-06-22] VITALS: Ht 157.5 cm; Wt 81.8 kg
[~2016-06-22] MED LIST changes: +ADVIN50/60 INH; -ALBUAER2 INH; +ASPI81TA28 PO; +ASPIRIN 81 MG CHEW PO ONE; +ATOR-26 PO; +AZEL0.15 NAE; +BCTCR TOP; +CETI10TA84 PO; +CITA20TA4 PO; +CRFUDL PO; +DXY100 PO; +ESOM1CAP24 PO; +FLUO20CA35 PO; -FLUT0.0529 NAE; +FLUT0.15 NAE; +HYD10 PO; +LIDOCAINE HCL 2% 2 ML VIAL (20MG/ML) ONE; -LORA0.5T12 PO; +MAGIC1 PO; +METO50TA16 PO; +MIDAZOLAM HCL 1 MG/ML 2ML VIAL ONE; +MONT1TAB3 PO; +NTRGSL/4 UT; -NTRSLP4 SL; +PANT40TA PO; +PRED-301 PO; +PRED10TA PO; +PROPOFOL IV EMULSION 10 MG/ML 20 ML VIAL IV ONE; +SUCR1TAB29 PO; +TICA1TAB PO; +ZNTT/150 PO
[2016-06-22 14:08] VITALS: Ht 157.5 cm; Wt 81.8 kg
--- NOTE | 2016-06-22 14:45 | Endo History and Physical ---
History & Physical Date of Service: Jun 22, 2016. Chief Complaint: Dysphagia, pain, reflux, anemia Referring Physician: Dr. Mitchell History of Present Illness For EGD Past Surgical History Hx Cardiac Surgery: Yes (HEART CATH X2, STENT X3) Hx Internal Defibrillator: No Hx Pacemaker: No Hx Abdominal Surgery: Yes (ARNALDO) Hx of Implantable Prosthesis: No Hx Post-Op Nausea and Vomiting: No Hx Cancer Surgery: No Hx Thoracic Surgery: No Hx Orthopedic: No Hx Urinary Tract Surgery: No Family History None Social History Smoking Status: Never Smoker Hx Substance Use: No Hx Alcohol Use: No Allergies Coded Allergies: Rivaroxaban (Verified Allergy, Intermediate, SHORTNESS OF BREATH, 06/18/16) and throat swelling Clarithromycin (Verified Allergy, Mild, HIVES, 06/18/16) Azithromycin (Verified Allergy, Unknown, per cardio note , 06/22/16) Cephalosporins (Verified Allergy, Unknown, hives/mild throat swelling, ) CEFTRIAXONE Clavulanic Acid (Verified Allergy, Unknown, HIVES, 06/18/16) Fexofenadine (Unverified Allergy, Unknown, per cardio note , 06/18/16) Formoterol (Unverified Allergy, Unknown, per cardio note , 06/18/16) Iron (Verified Allergy, Unknown, HANDS/FEET SWELLING/NAUSEA/UNCONSCIOUS, ) CURRENTLY ON IRON INFUSION REGIME - DR ALCANTARA PRESCRIBES - OKAY ON THESE INFUSIONS AT CURRENT TIME Milk Protein Extract (Unverified Allergy, Unknown, per cardio note , ) Penicillins (Verified Allergy, Unknown, HIVES, 06/18/16) Pseudoephedrine (Unverified Allergy, Unknown, per cardio note , 06/18/16) Sulfa Antibiotics (Verified Allergy, Unknown, swelling and hives, 06/18/16) Erythromycin (Verified Adverse Reaction, Unknown, NAUSEA, 06/18/16) Uncoded Allergies: Proair (Allergy, Unknown, per cardio note , 04/06/16) Tolerates Ventolin Current Medications Reported Home Medications Medications Dose Route/Sig Max Daily Dose Days Date Category Dose Instructions Carafate (Sucralfate) 1 Gm Tab 1 Gm PO QID 06/18/16 Reported Zantac (Ranitidine HCl) 150 Mg Tab 1 Tab PO BID 06/13/16 Reported Nitrostat (Nitroglycerin) 0.4 Mg Tab 0.4 Mg UT UD PRN 06/04/16 Reported Flonase Allergy Relief (Fluticasone Propionate (Nasal)) 50 Mcg/Act Spr 2 Sprays JAY QPM 06/04/16 Reported Lipitor (Atorvastatin Calcium) 80 Mg Tab 80 Mg PO QAM 05/04/16 Reported Aspirin Ec (Aspirin) 81 Mg Tab 81 Mg PO QAM 05/04/16 Reported Brilinta (Ticagrelor) 90 Mg Tab 90 Mg PO BID 04/30/16 Reported Bactroban (Mupirocin) 15 Gm Cr 1 Appln TOP UD PRN 04/29/16 Reported Advair Diskus 500/50 60 Dose (Fluticasone Prop/Salmeterol) 1 Ea Aerp 1 Puff INH BID 04/06/16 Reported Lopressor (Metoprolol Tartrate) 50 Mg Tab 50 Mg PO BID 04/06/16 Reported Protonix (Pantoprazole Sodium) 40 Mg Tab 40 Mg PO BID 04/06/16 Reported Zyrtec (Cetirizine HCl) 10 Mg Tab 10 Mg PO DAILY PRN 02/03/16 Reported Jantoven (Warfarin Sodium) 5 Mg Tab 7.5 Mg PO 3XWK 02/03/16 Reported Saturday, Saturday, Saturday Jantoven (Warfarin Sodium) 5 Mg Tab 5 Mg PO 4XWK 01/26/16 Reported Saturday, Saturday, , Saturday Cortef (Hydrocortisone) 10 Mg Tab 15 Mg PO QAM 12/22/15 Reported Citalopram Hydrobromide 20 Mg Tab 20 Mg PO HS 11/13/15 Reported Vital Signs Weight (Kilograms): 81.82 Height (Feet): 5 Height (Inches): 2 Date Time Temp Pulse Resp B/P Pulse Ox O2 Delivery O2 Flow Rate FiO2 06/22/16 14:13 36.5 75 20 130/75 95 Room Air Physical Exam General Appearance: + obese Respiratory/Chest: Respiratory effort: no dyspnea Cardiovascular: Heart Auscultation: RRR Abdomen: Inspection & Palpation: soft (anemia for EGD)
--- NOTE | 2016-06-22 14:57 | Discharge Instructions ---
Endoscopy Patient Instructions Date / Procedure(s) Performed Jun 22, 2016. EGD Allergy Information Coded Allergies: Rivaroxaban (Verified Allergy, Intermediate, SHORTNESS OF BREATH, 06/18/16) and throat swelling Clarithromycin (Verified Allergy, Mild, HIVES, 06/18/16) Azithromycin (Verified Allergy, Unknown, per cardio note , 06/22/16) Cephalosporins (Verified Allergy, Unknown, hives/mild throat swelling, ) CEFTRIAXONE Clavulanic Acid (Verified Allergy, Unknown, HIVES, 06/18/16) Fexofenadine (Unverified Allergy, Unknown, per cardio note , 06/18/16) Formoterol (Unverified Allergy, Unknown, per cardio note , 06/18/16) Iron (Verified Allergy, Unknown, HANDS/FEET SWELLING/NAUSEA/UNCONSCIOUS, ) CURRENTLY ON IRON INFUSION REGIME - DR ALCANTARA PRESCRIBES - OKAY ON THESE INFUSIONS AT CURRENT TIME Milk Protein Extract (Unverified Allergy, Unknown, per cardio note , ) Penicillins (Verified Allergy, Unknown, HIVES, 06/18/16) Pseudoephedrine (Unverified Allergy, Unknown, per cardio note , 06/18/16) Sulfa Antibiotics (Verified Allergy, Unknown, swelling and hives, 06/18/16) Erythromycin (Verified Adverse Reaction, Unknown, NAUSEA, 06/18/16) Uncoded Allergies: Proair (Allergy, Unknown, per cardio note , 04/06/16) Tolerates Ventolin Discharge Date / Findings Jun 22, 2016. Gastric polyps Medication Instructions Restart Stopped Medication(s): resume meds Reported Home Medications Medications Dose Route/Sig Max Daily Dose Days Date Category Dose Instructions Carafate (Sucralfate) 1 Gm Tab 1 Gm PO QID 06/18/16 Reported Zantac (Ranitidine HCl) 150 Mg Tab 1 Tab PO BID 06/13/16 Reported Nitrostat (Nitroglycerin) 0.4 Mg Tab 0.4 Mg UT UD PRN 06/04/16 Reported Flonase Allergy Relief (Fluticasone Propionate (Nasal)) 50 Mcg/Act Spr 2 Sprays JAY QPM 06/04/16 Reported Lipitor (Atorvastatin Calcium) 80 Mg Tab 80 Mg PO QAM 05/04/16 Reported Aspirin Ec (Aspirin) 81 Mg Tab 81 Mg PO QAM 05/04/16 Reported Brilinta (Ticagrelor) 90 Mg Tab 90 Mg PO BID 04/30/16 Reported Bactroban (Mupirocin) 15 Gm Cr 1 Appln TOP UD PRN 04/29/16 Reported Advair Diskus 500/50 60 Dose (Fluticasone Prop/Salmeterol) 1 Ea Aerp 1 Puff INH BID 04/06/16 Reported Lopressor (Metoprolol Tartrate) 50 Mg Tab 50 Mg PO BID 04/06/16 Reported Protonix (Pantoprazole Sodium) 40 Mg Tab 40 Mg PO BID 04/06/16 Reported Zyrtec (Cetirizine HCl) 10 Mg Tab 10 Mg PO DAILY PRN 02/03/16 Reported Jantoven (Warfarin Sodium) 5 Mg Tab 7.5 Mg PO 3XWK 02/03/16 Reported Saturday, Saturday, Saturday Jantoven (Warfarin Sodium) 5 Mg Tab 5 Mg PO 4XWK 01/26/16 Reported Saturday, Saturday, , Saturday Cortef (Hydrocortisone) 10 Mg Tab 15 Mg PO QAM 12/22/15 Reported Citalopram Hydrobromide 20 Mg Tab 20 Mg PO HS 11/13/15 Reported Provider Instructions Activity Restrictions - No exercising or heavy lifting for 24 hours. - Do not drink alcohol the day of the procedure. - Do not drive a car or operate machinery until the day after the procedure. - Do not make any important decisions or sign important papers in 24 hours after the procedure. Following Day: - Return to full activity which may include returning to work/school. Diet Start your diet with liquids and light foods (jello, soup, juice, toast). Then eat your usual diet if not nauseated. Treatment For Common After Affects For mild abdominal pain, bloating, or excessive gas: - Rest - Eat lightly - Lie on right side Follow-Up Information Follow-up with Dr. Mitchell as scheduled Anesthesia Information What You Should Know You have had a procedure that required some medicine to reduce anxiety and discomfort. This treatment is called moderate sedation. After receiving the treatment, you may be sleepy, but you will be able to breathe on your own. The effects of the treatment may last for several hours. Follow these instructions along with Activity/Diet recommendations noted above: * Do NOT do anything where dizziness or clumsiness would be dangerous. * Rest quietly at home today, then you can be up and about tomorrow. * Have a responsible person stay with you the rest of today. * You may have had an I.V. today. If so, you may take the dressing off later today. Recommendations Call your doctor if: * Trouble breathing * Continuous vomiting for more than 24 hours * Temperature above 101 degrees * Severe abdominal pain or bloating * Pain not relieved by pain medicine ordered * There is increased drainage or redness from any incision * A large amount of rectal bleeding greater than 2-3 tablespoons. (If you had a polyp/s removed or have hemorrhoids, a small amount of blood - from the rectum is to be expected.) * You have any unanswered questions or concerns. IN THE EVENT OF A SERIOUS EMERGENCY, GO TO THE NEAREST EMERGENCY ROOM Your discharge instructions were prepared by provider Merlin Kay. Patient Instructions Signature Page Sara Ch Patient (or Guardian) Signature/Date: I have read and understand the instructions given to me by my caregivers. Caregiver/RN/Doctor Signature/Date: The above-named patient and/or guardian has received patient instructions on this date. + Original Patient Signature Page (only) stays with chart. Please make copy for patient.
--- NOTE | 2016-06-22 15:03 | GI REPORT ---
Procedure Date: 06/22/2016 2:46 PM Procedure: Upper GI endoscopy Indications: Iron deficiency anemia, Heartburn, Suspected esophageal reflux Medicines: Midazolam 2 mg IV, Propofol total dose 180 mg IV, Lidocaine 40 mg IV Complications: No immediate complications. Estimated Blood Loss: Estimated blood loss was minimal. Procedure: Pre-Anesthesia Assessment: - Prior to the procedure, a History and Physical was performed, and patient medications, allergies and sensitivities were reviewed. The patient's tolerance of previous anesthesia was reviewed. - The risks and benefits of the procedure and the sedation options and risks were discussed with the patient. All questions were answered and informed consent was obtained. After obtaining informed consent, the endoscope was passed under direct vision. Throughout the procedure, the patient's blood pressure, pulse, and oxygen saturations were monitored continuously. The Scope was introduced through the mouth, and advanced to the second part of duodenum. The upper GI endoscopy was accomplished without difficulty. The patient tolerated the procedure well. Findings: The examined esophagus was normal. Multiple 6 mm semi-sessile polyps with no bleeding and no stigmata of recent bleeding were found in the gastric body. Biopsies were taken with a cold forceps for histology. Estimated blood loss was minimal. The 2nd part of the duodenum was normal. Biopsies were taken with a cold forceps for histology. Estimated blood loss was minimal. Impression: - Normal esophagus. - Multiple gastric polyps. Biopsied. - Normal 2nd part of the duodenum. Biopsied. Recommendation: - Discharge patient to home (ambulatory). - Continue present medications. - Await pathology results. - Return to primary care physician PRN. Merlin Kay M.D. Merlin Kay MD 06/22/2016 3:04:00 PM This report has been signed electronically. Note Initiated On: 06/22/2016 2:46 PM I attest to the content of the Intraoperative Record and orders documented therein, exceptions below
--- NOTE | 2016-06-22 15:30 | Anesthesiology Progress Note ---
Anesthesia Post Op Note Date & Time Jun 22, 2016 at 15:30 Vital Signs Pain Intensity: 0 Vital Signs Past 12 Hours Date Time Temp Pulse Resp B/P Pulse Ox O2 Delivery O2 Flow Rate FiO2 06/22/16 15:18 74 16 114/59 97 Room Air 06/22/16 15:03 86 16 131/72 96 Room Air 06/22/16 14:13 36.5 75 20 130/75 95 Room Air Notes Mental Status: alert / awake / arousable, participated in evaluation Pt Amnestic to Procedure: Yes Nausea / Vomiting: adequately controlled Pain: adequately controlled Airway Patency, RR, SpO2: stable & adequate BP & HR: stable & adequate Hydration State: stable & adequate Anesthetic Complications: no major complications apparent
[2016-06-22 15:33] VITALS: BP 111/61; PULSE 70; O2SAT 97
== END | disposition home or self-care (01) ==
LOC: C.GI 13:04
PROVIDERS: ATTEND Internal Medicine Gastroenterology
DX: K31.7 Polyp of stomach and duodenum (principal); D50.9 Iron deficiency anemia, unspecified; R13.10 Dysphagia, unspecified; K21.9 Gastro-esophageal reflux disease without esophagitis

== ENCOUNTER → 2016-07-04 | Outpatient (CLI) | payer BC ==
[~2016-07-04] MED LIST changes: -ASPIRIN 81 MG CHEW PO ONE; -LIDOCAINE HCL 2% 2 ML VIAL (20MG/ML) ONE; -MIDAZOLAM HCL 1 MG/ML 2ML VIAL ONE; -PROPOFOL IV EMULSION 10 MG/ML 20 ML VIAL IV ONE
--- NOTE | 2016-07-04 17:03 | MAMMOGRAPHY REPORT ---
BILATERAL DIGITAL SCREENING MAMMOGRAM TOMOSYNTHESIS WITH CAD: 07/04/2016 CLINICAL HISTORY: Routine screening. Patient has no complaints. TECHNIQUE: Breast tomosynthesis in addition to standard 2D mammography was performed. Current study was also evaluated with a Computer Aided Detection (CAD) system. COMPARISON: Comparison is made to exams dated: 04/26/2015 mammogram, 04/20/2014 mammogram, 03/18/20 13 mammogram, 01/22/2012 mammogram, 01/16/2012 mammogram, and 01/03/2011 mammogram - [facility]. BREAST COMPOSITION: The tissue of both breasts is heterogeneously dense, which may obscure small ma sses. FINDINGS: There is a small cluster of calcifications in the right upper outer quadrant, best seen o n the cc view, for which spot magnification views are recommended for further evaluation. The remainder of both breasts are stable compared to prior exams, without suspicious masses, calcifi cations, or areas of architectural distortion noted. Other bilateral benign-appearing calcification s do not appear significantly changed. IMPRESSION: ACR BI-RADS CATEGORY 0: INCOMPLETE EVALUATION: NEED ADDITIONAL IMAGING EVALUATION Right upper outer quadrant calcifications, for which additional imaging evaluation is recommended. The patient will be called to schedule an appointment. Approximately 10% of breast cancers are not detected with mammography. A negative mammographic repor t should not delay biopsy if a clinically suggestive mass is present. Vanessa Bahena M.D. /:07/04/2016 16:37:47 Front Office Representative: Juanita Majano, M, [facility] letter sent: Addl Imaging 0 BI-RADS Code: ACR BI-RADS Category 0: Incomplete Evaluation: Need Additional Imaging Evaluation
== END | disposition home or self-care (01) ==
LOC: C.MAMM 13:59
PROVIDERS: ATTEND Obstetrics & Gynecology
DX: Z12.31 Encounter for screening mammogram for malignant neoplasm of breast (principal); R92.1 Mammographic calcification found on diagnostic imaging of breast

== ENCOUNTER → 2016-07-11 | Outpatient (CLI) | payer BC ==
--- NOTE | 2016-07-11 15:31 | MAMMOGRAPHY REPORT ---
UNILATERAL RIGHT DIGITAL DIAGNOSTIC MAMMOGRAM: 07/11/2016 CLINICAL HISTORY: 50-year-old woman called back from screening mammography for a possible new cluste r of microcalcifications in the right upper outer quadrant. Family history of breast cancer = savanah gillis. Patient has a recent history of cardiac issues for which she is currently taking 3 anticoagulant s. TECHNIQUE: Spot magnification right CC and ML views were obtained. COMPARISON: Comparison is made to exams dated: 07/04/2016 mammogram, 04/26/2015 mammogram, 08/28/2012 mammogram, 03/18/2013 mammogram, 04/20/2014 mammogram, and 01/22/2012 ultrasound - [facility]. BREAST COMPOSITION: There are scattered areas of fibroglandular density in the right breast. FINDINGS: There is a small, 2 mm cluster of punctate microcalcifications in the upper outer middle one third of the right breast, that is increasingly conspicuous compared to prior exams. A few othe r punctate microcavitation occasions are scattered in the visualized right breast. Based on the spo t magnification MLO view, many calcifications throughout the right breast layer, confirming benign m ilk of calcium. However, the 2 mm cluster does not definitely demonstrate layering and is therefore indeterminate. No obvious associated mass or architectural distortion. Options of short interval follow-up diagnostic mammograms versus tissue sampling were provided to th e patient. Given her family history of a mother with breast cancer, I would prefer to sample the mi crocalcifications given that they are new. She reported she may discontinue Coumadin in the near fu ture and I would prefer to wait until then to perform the biopsy. Otherwise we could perform a very short follow-up exam including spot magnification views in 3 months. IMPRESSION: ACR BI-RADS CATEGORY 4B: INTERMEDIATE SUSPICION FOR MALIGNANCY 1. A new 2 mm cluster of punctate microcalcifications in the upper outer middle one third of the ri ght breast is indeterminate, warranting further evaluation with a stereotactic guided biopsy. These results and recommendations were discussed with the patient and her at the time of the exam. She tentatively scheduled the biopsy prior to leaving our department. Approximately 10% of breast cancers are not detected with mammography. A negative mammographic repor t should not delay biopsy if a clinically suggestive mass is present. Cassy Abrams M.D. ay/:07/11/2016 14:50:58 Hot Frame Tender: Marissa Back [facility] letter sent: Abnormal 08/08 BI-RADS Code: ACR BI-RADS Category 4B: Intermediate Suspicion For Malignancy
== END | disposition home or self-care (01) ==
LOC: C.MAMM 13:50
PROVIDERS: ATTEND Obstetrics & Gynecology
DX: R92.0 Mammographic microcalcification found on diagnostic imaging of breast (principal)

== ENCOUNTER 2016-07-27 14:34 | Observation (INO) | payer BC ==
[~2016-07-27] VITALS: Ht 157.5 cm; Wt 80.6 kg
[~2016-07-27 14:34] MED LIST changes: -ADVIN50/60 INH; -AZEL0.15 NAE; -BCTCR TOP; -CRFUDL PO; -DXY100 PO; -ESOM1CAP24 PO; -FLUO20CA35 PO; -FLUT0.15 NAE; -MAGIC1 PO; -METO50TA16 PO; -MONT1TAB3 PO; -NTRGSL/4 UT; -PANT40TA PO; -PRED-301 PO; -PRED10TA PO
[2016-07-27] MEDS ORDERED: ADVIN50/60 INH (15:05)
[2016-07-27] MEDS ORDERED: METO50TA16 PO ×2 (15:05→15:25)
[2016-07-27] MEDS ORDERED: PANT40TA PO (15:05)
--- NOTE | 2016-07-27 15:14 | EMERGENCY ROOM VISIT NOTE ---
History First contact with patient: 15:00 Chief Complaint: SHORTNESS OF BREATH Stated Complaint: SHORTNESS OF BREATH Nursing Triage Summary: pt. had SOB for past few days, this morning awoke did neb treatments today at home, could walk, "I couldn't catch my breathe, I've been just sitting still" History of Present Illness The patient is a 50 year old female who presents to the Emergency Room with complaints of shortness of breath. The patient has a very extensive medical history. The patient has had ST elevation SC in November 2015. She had LAD occlusion at that time. And several days later she had a catheterization which revealed RCA occlusion. She did have stents placed. The patient also has had pulmonary embolus. She is not currently on anticoagulants. She also has a history of asthma. She was admitted at the end of May of this year with non -ST elevation SC. The patient states she has been doing fairly well since then. She states that she also had anemia and had received transfusions. She states that over the last few a she has had increasing shortness of breath and chest tightness. The patient states she feels as though her asthma is worsening. She states she tried her nebulizers at home and couldn't catch her breath. She denies true chest pain but describes chest tightness. She reports shortness of breath. She denies any earache, sore throat or cough. She denies any abdominal pain, nausea or vomiting. She denies any fevers. Review of Systems A 10 system review of systems was completed with positives and pertinent negatives listed in the HPI. Past Medical/Surgical History Medical Problems: (1) Acute coronary syndrome,ST elevation SC (2) Acute coronary syndrome,ST elevation SC (3) Asthma (4) CAD (coronary artery disease) (5) Chest pain (6) Chest tightness or pressure (7) GERD with esophagitis (8) NSTEMI, initial episode of care (9) pulmonary embo (10) Pulmonary embolism (11) SOB (shortness of breath) (12) Symptomatic anemia Surgical Problems: (1) Stented coronary artery Family History Cancer Diabetes mellitus Gallbladder disease Heart disease Hypertension Lung disease Social History Smoking Status: Never Smoker Alcohol Use: none Drug Use: none Marital Status: Housing Status: lives with family Occupation Status: retired Current/Historical Medications Scheduled Aspirin (Aspirin Ec), 81 MG PO QAM Atorvastatin (Lipitor), 80 MG PO QAM Citalopram Hydrobromide (Citalopram Hydrobromide), 20 MG PO HS Fluticasone Prop/Salmeterol (Advair Diskus 500/50 60 Dose), 1 PUFF INH BID Hydrocortisone (Cortef), 10 MG PO QAM Hydrocortisone (Cortef), 5 MG PO Afternoon Metoprolol Tartrate (Lopressor) (Lopressor), 50 MG PO QAM Metoprolol Tartrate (Lopressor) (Lopressor), 25 MG PO HS Pantoprazole (Protonix), 40 MG PO BID Ticagrelor (Brilinta), 90 MG PO BID Scheduled PRN Cetirizine (Zyrtec), 10 MG PO DAILY PRN for Allergy Symptoms Diphenhy/Alum/Mag/Sucralfa (Magic Swizzle - Diphenhy/Alum/Mag/Sucralfa), 30 ML PO QID PRN for Acid Reflux Esomeprazole Magnesium (Nexium 24Hr), 20 MG PO UD PRN for Acid Reflux Fluticasone Propionate (Nasal) (Flonase Allergy Relief), 2 SPRAYS JAY QPM PRN for Nasal Congestion Mupirocin (Bactroban), 1 APPLN TOP UD PRN for Cold Sores Nitroglycerin (Nitrostat), 0.4 MG UT UD PRN for Chest Pain Allergies Coded Allergies: Rivaroxaban (Verified Allergy, Severe, SHORT OF BREATH/THROAT SWELLING, ) and throat swelling Cephalosporins (Verified Allergy, Intermediate, hives/mild throat swelling Rocephin, 07/27/16) CEFTRIAXONE Clarithromycin (Verified Allergy, Intermediate, HIVES, 07/27/16) Clavulanic Acid (Verified Allergy, Intermediate, HIVES, 07/27/16) Penicillins (Verified Allergy, Intermediate, HIVES, 07/27/16) Sulfa Antibiotics (Verified Allergy, Intermediate, swelling and hives, ) Iron (Verified Allergy, Mild, HANDS/FEET SWELLING/NAUSEA/UNCONSCIOUS, 07/27) CURRENTLY ON IRON INFUSION REGIME - DR ALCANTARA PRESCRIBES - OKAY ON THESE INFUSIONS AT CURRENT TIME Albuterol (Verified Allergy, Unknown, PROAIR (TOLERATES VENTOLIN) PER CARDIO NOTE, 07/27/16) Azithromycin (Verified Allergy, Unknown, per cardio note , 06/22/16) Fexofenadine (Verified Allergy, Unknown, per cardio note , 07/27/16) Formoterol (Verified Allergy, Unknown, per cardio note , 07/27/16) Milk Protein Extract (Verified Allergy, Unknown, per cardio note , 07/27/16 ) Pseudoephedrine (Verified Allergy, Unknown, per cardio note , 07/27/16) Erythromycin (Verified Adverse Reaction, Mild, NAUSEA, 07/27/16) Physical Exam Vital Signs Date Time Temp Pulse Resp B/P Pulse Ox O2 Delivery O2 Flow Rate FiO2 07/27/16 19:31 94 07/27/16 19:04 87 12 97 07/27/16 19:00 118/56 07/27/16 18:34 85 13 98 07/27/16 18:30 108/75 07/27/16 18:07 114/61 07/27/16 18:00 83 20 114/61 98 Room Air 07/27/16 16:34 85 97 07/27/16 16:30 119/78 07/27/16 16:04 86 95 07/27/16 16:00 89 18 115/67 97 Room Air 07/27/16 16:00 115/67 07/27/16 15:34 92 20 96 07/27/16 15:30 118/85 07/27/16 15:21 89 07/27/16 15:00 122/68 07/27/16 14:52 96 Room Air 07/27/16 14:52 36.5 100 13 138/79 96 Room Air 07/27/16 14:52 96 Room Air Physical Exam VITALS: Vitals are noted on the nurse's note and reviewed by myself. Vital signs stable. The patient is afebrile. She was tachycardic with a heart rate of 113 bpm. She is not hypoxic. GENERAL: This is a 50-year-old female, in no acute distress, nondiaphoretic, well-developed well-nourished. SKIN: The skin was without rashes, erythema, edema, or bruising. There is no tenting of the skin. Capillary reflex less than 2 seconds. HEAD: Normocephalic atraumatic. EARS: External auditory canals clear, tympanic membranes pearly loera without erythema or effusion bilaterally. EYES: Pupils equal round and reactive to light and accommodation. Conjunctivae without injection, sclerae without icterus. Extraocular movements intact. NOSE: Patent, turbinates without inflammation or discharge. MOUTH: Mucous membranes moist. Tonsils are not enlarged. Pharynx without erythema or exudate. Uvula midline. Airway patent. Tongue does not deviate. NECK: Supple without nuchal rigidity. No lymphadenopathy. No thyromegaly. Cervical spine is nontender. No JVD. HEART: Regular rate and rhythm without murmurs gallops or rubs. LUNGS: There are very mild scattered expiratory wheezes. No dullness to percussion. No retractions or accessory muscle use. ABDOMEN: Positive bowel sounds x 4. Soft, nontender, without masses or organomegaly. MUSCULOSKELETAL: No muscle atrophy, erythema, or edema noted. Full range of motion in all extremities. Normal gait. Strength 5/5 throughout. NEURO: Patient was alert and oriented to person place and time. No focal neurological deficits.m Medical Decision & Procedures ER Provider Diagnostic Interpretation: CHEST CTA for PULMONARY ARTERIES CT DOSE: 568.36 mGycm HISTORY: Chest pain dyspnea TECHNIQUE: Multiaxial CT images of the chest were performed following the intravenous administration of contrast to evaluate the pulmonary arteries. Maximal intensity projection images were also obtained. COMPARISON STUDY: 06/05/2016 FINDINGS: There is a normal caliber thoracic aorta with no evidence for dissection. There is no evidence for pulmonary embolus. No pleural effusions. No pneumothorax. The liver and spleen are unremarkable. No mediastinal or hilar lymphadenopathy. The central airways are patent. The lungs are clear. IMPRESSION: No evidence for pulmonary embolus. The lungs are clear. CHEST ONE VIEW PORTABLE HISTORY: chest tightness COMPARISON: Chest 06/04/2016. FINDINGS: The lungs are clear. Cardiac silhouette is normal in size. No pleural effusions. No pneumothorax. Port-A-Cath terminates in the proximal SVC. This remains unchanged. IMPRESSION: No acute process. Laboratory Results 07/27/16 15:35 Red Blood Count 4.62, Mean Corpuscular Volume 78.1, Mean Corpuscular Hemoglobin 24.5, Mean Corpuscular Hemoglobin Concent 31.3, Mean Platelet Volume 9.9, Neutrophils (%) (Auto) 85.3, Lymphocytes (%) (Auto) 8.4, Monocytes (%) (Auto) 2.0, Eosinophils (%) (Auto) 3.0, Basophils (%) (Auto) 0.7, Neutrophils # (Auto) 7.73, Lymphocytes # (Auto) 0.76, Monocytes # (Auto) 0.18, Eosinophils # (Auto) 0.27, Basophils # (Auto) 0.06 07/27/16 15:35 Test 07/27/16 15:35 07/27/16 15:45 White Blood Count 9.05 K/uL (4.8-10.8) Red Blood Count 4.62 M/uL (4.2-5.4) Hemoglobin 11.3 g/dL (12.0-16.0) Hematocrit 36.1 % (37-47) Mean Corpuscular Volume 78.1 fL (80-100) Mean Corpuscular Hemoglobin 24.5 pg (25-34) Mean Corpuscular Hemoglobin Concent 31.3 g/dl (32-36) Platelet Count 361 K/uL (130-400) Mean Platelet Volume 9.9 fL (7.4-10.4) Neutrophils (%) (Auto) 85.3 % Lymphocytes (%) (Auto) 8.4 % Monocytes (%) (Auto) 2.0 % Eosinophils (%) (Auto) 3.0 % Basophils (%) (Auto) 0.7 % Neutrophils # (Auto) 7.73 K/uL (1.4-6.5) Lymphocytes # (Auto) 0.76 K/uL (1.2-3.4) Monocytes # (Auto) 0.18 K/uL (0.11-0.59) Eosinophils # (Auto) 0.27 K/uL (0-0.5) Basophils # (Auto) 0.06 K/uL (0-0.2) RDW Standard Deviation 51.7 fL (36.4-46.3) RDW Coefficient of Variation 18.3 % (11.5-14.5) Immature Granulocyte % (Auto) 0.6 % Immature Granulocyte # (Auto) 0.05 K/uL (0.00-0.02) Prothrombin Time 11.2 SECONDS (9.0-12.0) Prothromb Time International Ratio 1.0 (0.9-1.1) Activated Partial Thromboplast Time 29.2 SECONDS (21.0-31.0) Partial Thromboplastin Ratio 1.1 Est Creatinine Clear Calc Drug Dose 61.0 ml/min Estimated GFR () 67.8 Estimated GFR (Non- 58.5 BUN/Creatinine Ratio 8.0 (10-20) Calcium Level 8.7 mg/dl (8.5-10.1) Total Bilirubin 0.6 mg/dl (0.2-1) Aspartate Amino Transf (AST/SGOT) 8 U/L (15-37) Alanine Aminotransferase (ALT/SGPT) 31 U/L (12-78) Alkaline Phosphatase 61 U/L (45-117) Total Protein 6.9 gm/dl (6.4-8.2) Albumin 3.5 gm/dl (3.4-5.0) Globulin 3.4 gm/dl (2.5-4.0) Albumin/Globulin Ratio 1.0 (0.9-2) Bedside Hemoglobin 11.9 g/dl (12.0-16.0) Bedside Hematocrit 35 % (37-47) Bedside Sodium 141 mEq/L (135-144) Bedside Potassium 4.5 mEq/L (3.3-5.0) Bedside Chloride 106 mEq/L (101-112) Bedside Total CO2 21 mEq/l (24-31) Anion Gap 19.0 mmol/L (16-25) Bedside Blood Urea Nitrogen 8 mg/dl (7-18) Bedside Creatinine 1.0 mg/dl (0.6-1.3) Bedside Glucose (other) 134 mg/dl (70-99) Bedside Ionized Calcium (Tish) 1.26 mmol/l (1.12-1.32) Medications Administered Medications (Trade) Dose Ordered Sig/Daisha Route Start Time Stop Time Status Last Admin Dose Admin Aspirin (Aspirin Chew) 324 mg NOW STAT PO 07/27/16 15:42 07/27/16 15:44 DC 07/27/16 16:17 324 MG Procedure 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 They maintained a normal sinus rhythm without ectopy. ECG Indication: chest pain Rate (beats per minute): 90 Rhythm: normal sinus Findings: no acute ischemic change Change: no significant change ED Course The patient was seen and examined. Previous visits were reviewed. The patient does not have a fever or leukocytosis. She does not have any significant electrolyte abnormalities. Initial cardiac enzymes were not elevated. INR was 1.0. CTA was negative for pulmonary embolus The patient had been given a DuoNeb and Solu-Medrol in route by EMS. She had a few scattered expiratory wheezes but lung sounds were otherwise clear. She was given aspirin in the emergency department The patient has had dyspnea and chest tightness. She does have an extensive cardiac history. Given her symptoms, she would benefit from further evaluation and management in the hospital. The case was discussed with Dr. Elizalde and he will evaluate the patient. The case was also discussed with Dr. Bennett who agrees with the assessment and treatment plan. Medical Decision DIFFERENTIAL DIAGNOSIS: Aortic dissection, myocarditis, pericarditis, cervical disc disease, costochondritis, herpes zoster, rib fracture, pleuritis, pneumonia , pulmonary embolus, tension pneumothorax, anxiety disorder, somatoform disorder , choledocholithiasis, status, esophagitis, esophageal spasm, esophageal reflux , esophageal rupture, pancreatitis, peptic ulcer disease, cardiac ischemia, ST elevation SC, acute coronary syndrome, arrhythmia, coronary artery vasospasm. vavular heart disease, coronary artery disease, among others. Impression Primary Impression: Chest tightness or pressure Additional Impression: Dyspnea Departure Information Referrals Genaro Mitchell M.D. (PCP) Patient Instructions My [facility] Problem Qualifiers
[2016-07-27] MEDS ORDERED: ESOM1CAP24 PO (15:25)
[2016-07-27] MEDS ORDERED: MAGIC1 PO (15:25)
[2016-07-27] MEDS ORDERED: HYD10 PO (15:25)
[2016-07-27] MEDS ORDERED: ASPIRIN 324 MG CHEW PO STA (15:42)
[2016-07-27 16:00] LABS: BASO % 0.7 %; BASO ABS # 0.06 K/uL (0-0.2); COMPLETE YES; HEMATOCRIT 36.1 % (37-47); IG% 0.6 %; LYMPH % 8.4 %; LYMPH ABS # 0.76 K/uL (1.2-3.4); MEAN CELL VOLUME 78.1 fL (80-100); MEAN CORPUSCULAR HEMOGLOBIN 24.5 pg (25-34); MEAN CORPUSCULAR HGB CONC 31.3 g/dl (32-36); MEAN PLATELET VOLUME 9.9 fL (7.4-10.4); NEUT % 85.3 %; PLATELET COUNT 361 K/uL (130-400); RED BLOOD COUNT 4.62 M/uL (4.2-5.4); WHITE BLOOD COUNT 9.05 K/uL (4.8-10.8)
[2016-07-27] MEDS ORDERED: OPTIRAY 320 IV PRN (16:00)
--- NOTE | 2016-07-27 16:00 | DIAGNOSTIC IMAGING REPORT ---
CHEST ONE VIEW PORTABLE HISTORY: chest tightness COMPARISON: Chest 06/04/2016. FINDINGS: The lungs are clear. Cardiac silhouette is normal in size. No pleural effusions. No pneumothorax. Port-A-Cath terminates in the proximal SVC. This remains unchanged. IMPRESSION: No acute process. Electronically signed by: Nabor Sheridan M.D. 07/27/2016 3:59 PM Dictated Date/Time: 07/27/2016 3:29 PM
[2016-07-27 16:08] LABS: PARTIAL THROMBOPLASTIN RATIO 1.1; PROTHROMBIN TIME (PATIENT) 11.2 SECONDS (9.0-12.0)
[2016-07-27 16:15] LABS: ISTAT HEMOGLOBIN 11.9 g/dl (12.0-16.0); ISTAT IONIZED CALCIUM 1.26 mmol/l (1.12-1.32)
[2016-07-27 16:22] LABS: CALCIUM 8.7 mg/dl (8.5-10.1); CREATININE 1.1 mg/dl (0.60-1.20); POTASSIUM 4.4 mmol/L (3.5-5.1)
[2016-07-27 16:27] LABS: CKMB/CK RATIO 3.1 (0-3.0)
--- NOTE | 2016-07-27 17:29 | DIAGNOSTIC IMAGING REPORT ---
CHEST CTA for PULMONARY ARTERIES CT DOSE: 568.36 mGycm HISTORY: Chest pain dyspnea TECHNIQUE: Multiaxial CT images of the chest were performed following the intravenous administration of contrast to evaluate the pulmonary arteries. Maximal intensity projection images were also obtained. COMPARISON STUDY: 06/05/2016 FINDINGS: There is a normal caliber thoracic aorta with no evidence for dissection. There is no evidence for pulmonary embolus. No pleural effusions. No pneumothorax. The liver and spleen are unremarkable. No mediastinal or hilar lymphadenopathy. The central airways are patent. The lungs are clear. IMPRESSION: No evidence for pulmonary embolus. The lungs are clear. Electronically signed by: Steve Kaplan M.D. 07/27/2016 5:28 PM Dictated Date/Time: 07/27/2016 5:25 PM
[2016-07-27] MEDS ORDERED: NITROGLYCERIN 0.4 MG SL PER TAB CHARGE SL PRN (19:45)
[2016-07-27] MEDS ORDERED: ONDANSETRON INJ 2 MG/ML 2 ML VIAL IV PRN (19:45)
[2016-07-27] MEDS ORDERED: MUPIROCIN 2% OINT 22 GM TUBE TOP PRN (19:45)
[2016-07-27] MEDS ORDERED: ACETAMINOPHEN 325 MG TAB PO PRN (19:45)
[2016-07-27] MEDS ORDERED: ZOLPIDEM TARTRATE 5 MG TAB PO PRN (19:45)
[2016-07-27] MEDS ORDERED: FLUTICASONE PROPIONATE NA SPR 16 GM BTL NAE PRN (19:45)
[2016-07-27] MEDS ORDERED: CETIRIZINE HCL 10 MG TAB PO PRN (19:45)
[2016-07-27] MEDS ORDERED: NON-FORMULARY MEDICATION (Diphenhy/Alum/Mag/Sucralfa (Magic Swizzle - Diphenhy/Alum/Mag/Su PO PRN (19:45)
[2016-07-27] MEDS ORDERED: LEVALBUTEROL/IPRATROPIUM NEB INH PRN (19:45)
[2016-07-27] MEDS ORDERED: NITROGLYCERIN 0.4 MG SL PER TAB CHARGE UT PRN (19:45)
[2016-07-27 20:30] VITALS: BP 131/79; PULSE 93; TEMP 36.5; O2SAT 99; Ht 157.5 cm; Wt 80.6 kg
[2016-07-27] MEDS ORDERED: METOPROLOL TARTRATE 50 MG TAB PO SCH (21:00)
[2016-07-27] MEDS ORDERED: LEVALBUTEROL/IPRATROPIUM NEB INH SCH (21:00)
[2016-07-27] MEDS ORDERED: LEVALBUTEROL 1.25MG/0.5ML NEB INH PRN (21:00)
[2016-07-27] MEDS ORDERED: FAMOTIDINE 20 MG TAB PO SCH (21:00)
[2016-07-27] MEDS ORDERED: ALUMINUM/MAGNESIUM SUSP 50 ML, DiphenhydrAMINE HCL SYRUP 125 MG, LIDOCAINE HCL 2% VISCO... PO PRN ×4 (21:00)
[2016-07-27] MEDS ORDERED: IPRATROPIUM BROMIDE NEB SOLN 0.02% 2.5 ML VIAL INH PRN (21:00)
[2016-07-27] MEDS: IPRATROPIUM BROMIDE NEB SOLN 0.02% 2.5 ML VIAL INH SCH (21:00)
[2016-07-27] MEDS ORDERED: CITALOPRAM 20 MG TAB PO SCH (21:00)
[2016-07-27] MEDS: LEVALBUTEROL 1.25MG/0.5ML NEB INH SCH (21:00)
[2016-07-27 21:01] VITALS: PULSE 97; O2SAT 98
[2016-07-27] MEDS ORDERED: BCTCR TOP (21:06)
[2016-07-27] MEDS ORDERED: FLUT0.15 NAE (21:14)
[2016-07-27] MEDS ORDERED: NTRGSL/4 UT (21:14)
[2016-07-27] MEDS ORDERED: IV FLUIDS COMPLETED PRN (21:15)
--- NOTE | 2016-07-27 21:34 | History and Physical ---
History & Physical Date & Time of Service: Jul 27, 2016 at 21:17 Chief Complaint: Chest Tightness/Pressure, Stented Coronary Artery Primary Care Physician: Genaro Mitchell M.D. History of Present Illness Source: patient, spouse The patient is a 50-year-old female who presents emergency department with sudden onset of chest tightness and shortness of breath that began in the afternoon prior to arrival. In November 2015 she had a STEMI, LAD occlusion and RCA occlusion requiring stents,and a pulmonary embolus. She was then readmitted in May 2016 with an NSTEMI. She reports that since that time she had been doing well until early this afternoon. She feels that her symptoms today are more likely related to asthma, but did not have improvement with her nebulizers and usual medications at home. She denies any fevers, chills or productive cough. Past Medical/Surgical History Medical Problems: (1) Asthma Status: Chronic Family History Cancer Diabetes mellitus Gallbladder disease Heart disease Hypertension Lung disease Social History Smoking Status: Never Smoker Smokeless Tobacco Use: No Alcohol Use: none Drug Use: none Marital Status: Housing status: lives with family Occupational Status: retired Immunizations History of Influenza Vaccine: Unknown Influenza Vaccine Date: Feb 24, 2006 History of Tetanus Vaccine?: Unknown History of Pneumococcal: Unknown History of Hepatitis B Vaccine: No Multi-Drug Resistant Organisms History of MDRO: No Allergies Coded Allergies: Rivaroxaban (Verified Allergy, Severe, SHORT OF BREATH/THROAT SWELLING, ) and throat swelling Cephalosporins (Verified Allergy, Intermediate, hives/mild throat swelling Rocephin, 07/27/16) CEFTRIAXONE Clarithromycin (Verified Allergy, Intermediate, HIVES, 07/27/16) Clavulanic Acid (Verified Allergy, Intermediate, HIVES, 07/27/16) Penicillins (Verified Allergy, Intermediate, HIVES, 07/27/16) Sulfa Antibiotics (Verified Allergy, Intermediate, swelling and hives, ) Iron (Verified Allergy, Mild, HANDS/FEET SWELLING/NAUSEA/UNCONSCIOUS, 07/27) CURRENTLY ON IRON INFUSION REGIME - DR ALCANTARA PRESCRIBES - OKAY ON THESE INFUSIONS AT CURRENT TIME Albuterol (Verified Allergy, Unknown, PROAIR (TOLERATES VENTOLIN) PER CARDIO NOTE, 07/27/16) Azithromycin (Verified Allergy, Unknown, per cardio note , 06/22/16) Fexofenadine (Verified Allergy, Unknown, per cardio note , 07/27/16) Formoterol (Verified Allergy, Unknown, per cardio note , 07/27/16) Milk Protein Extract (Verified Allergy, Unknown, per cardio note , 07/27/16 ) Pseudoephedrine (Verified Allergy, Unknown, per cardio note , 07/27/16) Erythromycin (Verified Adverse Reaction, Mild, NAUSEA, 07/27/16) Home Medications Scheduled Aspirin (Aspirin Ec), 81 MG PO QAM Atorvastatin (Lipitor), 80 MG PO QAM Citalopram Hydrobromide (Citalopram Hydrobromide), 20 MG PO HS Fluticasone Prop/Salmeterol (Advair Diskus 500/50 60 Dose), 1 PUFF INH BID Hydrocortisone (Cortef), 10 MG PO QAM Hydrocortisone (Cortef), 5 MG PO Afternoon Metoprolol Tartrate (Lopressor) (Lopressor), 50 MG PO QAM Metoprolol Tartrate (Lopressor) (Lopressor), 25 MG PO HS Pantoprazole (Protonix), 40 MG PO BID Ticagrelor (Brilinta), 90 MG PO BID Scheduled PRN Cetirizine (Zyrtec), 10 MG PO DAILY PRN for Allergy Symptoms Diphenhy/Alum/Mag/Sucralfa (Magic Swizzle - Diphenhy/Alum/Mag/Sucralfa), 30 ML PO QID PRN for Acid Reflux Esomeprazole Magnesium (Nexium 24Hr), 20 MG PO UD PRN for Acid Reflux Fluticasone Propionate (Nasal) (Flonase Allergy Relief), 2 SPRAYS JAY QPM PRN for Nasal Congestion Mupirocin (Bactroban), 1 APPLN TOP UD PRN for Cold Sores Nitroglycerin (Nitrostat), 0.4 MG UT UD PRN for Chest Pain Review of Systems The patient denies lower extremity swelling, vision change, hearing change, sore throat, fevers, chills, sweats, weight change, fatigue, nausea, vomiting, abdominal pain, pelvic pain, blood in urine or stool, dysuria, urinary frequency or urgency, lightheadedness, dizziness, headache, memory loss, rash, abnormal bruising or bleeding, imbalance, focal or generalized weakness, numbness or tingling in arms or legs, arthralgias or myalgias, back or neck pain , night sweats, or allergy symptoms. The review of systems is otherwise negative other than for that already noted above, and at least 10 systems have been reviewed. Physical Exam Vital Signs Date Time Temp Pulse Resp B/P Pulse Ox O2 Delivery O2 Flow Rate FiO2 07/27/16 21:01 97 18 98 Room Air 07/27/16 20:40 74 16 134/74 98 07/27/16 19:31 94 07/27/16 19:04 87 12 97 07/27/16 19:00 118/56 07/27/16 18:34 85 13 98 07/27/16 18:30 108/75 07/27/16 18:07 114/61 07/27/16 18:00 83 20 114/61 98 Room Air 07/27/16 16:34 85 97 07/27/16 16:30 119/78 07/27/16 16:04 86 95 07/27/16 16:00 89 18 115/67 97 Room Air 07/27/16 16:00 115/67 07/27/16 15:34 92 20 96 07/27/16 15:30 118/85 07/27/16 15:21 89 07/27/16 15:00 122/68 07/27/16 14:52 96 Room Air 07/27/16 14:52 36.5 100 13 138/79 96 Room Air 07/27/16 14:52 96 Room Air The patient is awake, well-developed and adequately nourished, alert and oriented 3, normocephalic and atraumatic, lying in bed and in no acute distress. HEENT--PERRL, EOMI, mucous membranes and oropharynx moist. Neck--supple, no JVD or bruits, thyroid normal, trachea midline, no adenopathy. Heart--normal S1 and S2, no extra beats, no murmurs, rubs or gallops. Lungs--clear bilaterally with better air movement on the right and left, no respiratory distress, no accessory muscle use. Abdomen--normal bowel sounds and soft, nontender and nondistended, no hernias or masses, no organomegaly. Extremities--no cyanosis, clubbing or edema. There are good distal pulses b/l. Dermatologic--normal skin turgor, normal color, warm and dry, no abnormal lymph nodes, no rash. Neurologic--cranial nerves II through XII grossly intact, motor and sensory examination normal. Rheumatologic--normal range of motion, nontender, muscles and joints. Psychiatric--normal affect. Diagnostics Laboratory Results Results Past 24 Hours Test 07/27/16 15:35 07/27/16 15:45 07/27/16 19:35 Range/Units White Blood Count 9.05 4.8-10.8 K/uL Red Blood Count 4.62 4.2-5.4 M/uL Hemoglobin 11.3 12.0-16.0 g/dL Hematocrit 36.1 37-47 % Mean Corpuscular Volume 78.1 80-100 fL Mean Corpuscular Hemoglobin 24.5 25-34 pg Mean Corpuscular Hemoglobin Concent 31.3 32-36 g/dl Platelet Count 361 130-400 K/uL Mean Platelet Volume 9.9 7.4-10.4 fL Neutrophils (%) (Auto) 85.3 % Lymphocytes (%) (Auto) 8.4 % Monocytes (%) (Auto) 2.0 % Eosinophils (%) (Auto) 3.0 % Basophils (%) (Auto) 0.7 % Neutrophils # (Auto) 7.73 1.4-6.5 K/uL Lymphocytes # (Auto) 0.76 1.2-3.4 K/uL Monocytes # (Auto) 0.18 0.11-0.59 K/uL Eosinophils # (Auto) 0.27 0-0.5 K/uL Basophils # (Auto) 0.06 0-0.2 K/uL RDW Standard Deviation 51.7 36.4-46.3 fL RDW Coefficient of Variation 18.3 11.5-14.5 % Immature Granulocyte % (Auto) 0.6 % Immature Granulocyte # (Auto) 0.05 0.00-0.02 K/uL Prothrombin Time 11.2 9.0-12.0 SECONDS Prothromb Time International Ratio 1.0 0.9-1.1 Activated Partial Thromboplast Time 29.2 21.0-31.0 SECONDS Partial Thromboplastin Ratio 1.1 Sodium Level 142 136-145 mmol/L Potassium Level 4.4 3.5-5.1 mmol/L Chloride Level 110 98-107 mmol/L Carbon Dioxide Level 26 21-32 mmol/L Anion Gap 6.0 19.0 16-25 mmol/L Blood Urea Nitrogen 9 7-18 mg/dl Creatinine 1.10 0.60-1.20 mg/dl Est Creatinine Clear Calc Drug Dose 61.0 ml/min Estimated GFR () 67.8 Estimated GFR (Non- 58.5 BUN/Creatinine Ratio 8.0 10-20 Random Glucose 129 70-99 mg/dl Calcium Level 8.7 8.5-10.1 mg/dl Total Bilirubin 0.6 0.2-1 mg/dl Aspartate Amino Transf (AST/SGOT) 8 15-37 U/L Alanine Aminotransferase (ALT/SGPT) 31 12-78 U/L Alkaline Phosphatase 61 45-117 U/L Total Creatine Kinase 77 26-192 U/L Creatine Kinase MB 2.4 0.5-3.6 ng/ml Creatine Kinase MB Ratio 3.1 0-3.0 Troponin I 0.036 0-0.045 ng/ml Total Protein 6.9 6.4-8.2 gm/dl Albumin 3.5 3.4-5.0 gm/dl Globulin 3.4 2.5-4.0 gm/dl Albumin/Globulin Ratio 1.0 0.9-2 Bedside Hemoglobin 11.9 12.0-16.0 g/dl Bedside Hematocrit 35 37-47 % Bedside Sodium 141 135-144 mEq/L Bedside Potassium 4.5 3.3-5.0 mEq/L Bedside Chloride 106 101-112 mEq/L Bedside Total CO2 21 24-31 mEq/l Bedside Blood Urea Nitrogen 8 7-18 mg/dl Bedside Creatinine 1.0 0.6-1.3 mg/dl Bedside Glucose (other) 134 70-99 mg/dl Bedside Ionized Calcium (Tish) 1.26 1.12-1.32 mmol/l Diagnostic Radiology Patient Name: ALBIN ALVAREZ Unit Number: [id number] Dictated: 07/27/161528 Transcribed: 07/27/161534 TEDDY Printed Date/Time: [~ rep prt dt]/[~ rep prt tm] [~ rep ct labl] - [~ rep ct ivnm] [facility] [place] [place] [address] Dictated: 07/27/161528 Transcribed: 07/27/16 1535 PAJ Printed Date/Time: [~ rep prt dt]/[~ rep prt tm] [~ rep ct labl] - [~ rep ct ivnm] CHEST ONE VIEW PORTABLE HISTORY: chest tightness COMPARISON: Chest 06/04/2016. FINDINGS: The lungs are clear. Cardiac silhouette is normal in size. No pleural effusions. No pneumothorax. Port-A-Cath terminates in the proximal SVC. This remains unchanged. IMPRESSION: No acute process. Electronically signed by: Nabor Sheridan M.D. 07/27/2016 3:59 PM Dictated Date/Time: 07/27/2016 3:29 PM The status of this report is Signed. Draft = Not yet reviewed or approved by Radiologist. Signed = Reviewed and approved by Radiologist. <AttendingPhy></AttendingPhy> <FamilyPhy>Genaro Mitchell M.D.</FamilyPhy> < PrimaryPhy>Genaro Mitchell M.D.</PrimaryPhy> <UnitNumber>[id number]</ UnitNumber> <VisitNumber>[id number]</VisitNumber> <PatientName>ALBIN ALVAREZ</ PatientName> <DateOfBirth>1965</DateOfBirth> <Location>[facility]</Location> < ServiceDate>07/27/16</ServiceDate> <MNE>ESINDI</MNE> <OrderingPhy>Siria Diaz PA-C</OrderingPhy> <OrderingPhyMNE>f rep ord dr hoyos</OrderingPhyMNE > <DictatingPhyMNE>f rep dict dr hoyos</DictatingPhyMNE> <CCListMNE>f rep ct mne</ CCListMNE> <AdmittingPhyMNE>f pt admit dr hoyos</AdmittingPhyMNE> <AttendingPhyMNE >f pt attend dr hoyos</AttendingPhyMNE> <ConsultingPhyMNE>f pt consult dr hoyos</ConsultingPhyMNE> <FamilyPhyMNE>f pt fam dr hoyos</FamilyPhyMNE> <OtherPhyMNE>f pt other dr hoyos</OtherPhyMNE> < PrimaryPhyMNE>f pt prim care dr hoyos</PrimaryPhyMNE> <ReferringPhyMNE>f pt referring dr hoyos</ReferringPhyMNE> Patient Name: ALBIN ALVAREZ Unit Number: [id number] Dictated: 07/27/161724 Transcribed: 07/27/161724 MS Printed Date/Time: [~ rep prt dt]/[~ rep prt tm] [~ rep ct labl] - [~ rep ct ivnm] [facility] Radiology Department [place], [place] [id number] Dictated: 07/27/161724 Transcribed: 07/27/161724 MS Printed Date/Time: [~ rep prt dt]/[~ rep prt tm] [~ rep ct labl] - [~ rep ct ivnm] DIAGNOSTIC IMAGING [~ rep ct add3]] CHEST CTA for PULMONARY ARTERIES CT DOSE: 568.36 mGycm HISTORY: Chest pain dyspnea TECHNIQUE: Multiaxial CT images of the chest were performed following the intravenous administration of contrast to evaluate the pulmonary arteries. Maximal intensity projection images were also obtained. COMPARISON STUDY: 06/05/2016 FINDINGS: There is a normal caliber thoracic aorta with no evidence for dissection. There is no evidence for pulmonary embolus. No pleural effusions. No pneumothorax. The liver and spleen are unremarkable. No mediastinal or hilar lymphadenopathy. The central airways are patent. The lungs are clear. IMPRESSION: No evidence for pulmonary embolus. The lungs are clear. Electronically signed by: Steve Kaplan M.D. 07/27/2016 5:28 PM Dictated Date/Time: 07/27/2016 5:25 PM The status of this report is Signed. Draft = Not yet reviewed or approved by Radiologist. Signed = Reviewed and approved by Radiologist. <AttendingPhy></AttendingPhy> <FamilyPhy>Genaro Mitchell M.D.</FamilyPhy> < PrimaryPhy>Genaro Mitchell M.D.</PrimaryPhy> <UnitNumber>[id number]</ UnitNumber> <VisitNumber>[id number]</VisitNumber> <PatientName>ALBIN ALVAREZ</ PatientName> <DateOfBirth>1965</DateOfBirth> <Location>[facility]</Location> < ServiceDate>07/27/16</ServiceDate> <MNE>ESINDI</MNE> <OrderingPhy>Siria Diaz PA-C</OrderingPhy> <OrderingPhyMNE>f rep ord dr hoyos</OrderingPhyMNE > <DictatingPhyMNE>f rep dict dr hoyos</DictatingPhyMNE> <CCListMNE>f rep ct valenciae</ CCListMNE> <AdmittingPhyMNE>f pt admit dr hoyos</AdmittingPhyMNE> <AttendingPhyMNE >f pt attend dr hoyos</AttendingPhyMNE> <ConsultingPhyMNE>f pt consult dr hoyos</ConsultingPhyMNE> <FamilyPhyMNE>f pt fam dr hoyos</FamilyPhyMNE> <OtherPhyMNE>f pt other dr hoyos</OtherPhyMNE> < PrimaryPhyMNE>f pt prim care dr hoyos</PrimaryPhyMNE> <ReferringPhyMNE>f pt referring dr hoyos</ReferringPhyMNE> EKG EKG shows normal sinus rhythm at 90 bpm, there are no acute ST-T changes. Impression Assessment and Plan Chest tightness/shortness of breath--most likely related to asthma flare. However with her significant cardiac history she'll be admitted to telemetry. CAD/hypertension/STEMI/NSTEMI/stent of coronary artery--the patient was admitted to the telemetry unit, for serial cardiac enzymes, cardiac rhythm monitoring and a 2-D echocardiogram with Dopplers. We will continue conservative aspirin 81 mg by mouth daily, metoprolol tartrate 50 mg by mouth every morning and 25 mg by mouth at bedtime, and Brilinta 90 mg by mouth twice a day. We'll consult her orientation and mobility specialist Dr. Plaza. Asthma--hold Advair Diskus 500/50 one inhalation twice a day due to possible precipitation of symptoms. Place on Xopenex with Atrovent nebulizer to use every 6 hours while awake and every 2 hours when necessary. Add mag oxide 400 mg by mouth twice a day. Add Singulair 10 mg by mouth daily. Would consider discharge on Xopenex HFA. GERD with esophagitis--continue pantoprazole 40 mg by mouth twice a day, add famotidine 20 mg by mouth at bedtime. Hypercholesterolemia--continue atorvastatin 80 mg by mouth daily. Depression--continue citalopram 20 mg by mouth at bedtime. Adrenal insufficiency--change Cortef from 10 mg every morning 12.5 mg every morning, and from 5 mg every afternoon to 7.5 mg For Stress Dosing. Level of Care Telemetry Advanced Directives Existing Advance Directive: No Existing Living Will: No Existing Power of Assistant Professor Of English: No Resuscitation Status FULL RESUSCITATION VTE Prophylaxis VTE Risk Assessment Done? Y/N: Yes Risk Level: Moderate Given or contraindicated: SCD's Social Service Consult None Apply
[2016-07-27] MEDS ORDERED: MONTELUKAST SOD 10 MG TAB PO ONE (21:45)
[2016-07-27 22:01] LABS: CKMB/CK RATIO 3.7 (0-3.0)
[2016-07-27] MEDS: TICAGRELOR 90 MG TAB PO SCH (22:38)
[2016-07-27] MEDS: MAGNESIUM OXIDE 400 MG TAB PO SCH (22:38)
[2016-07-27 23:22] VITALS: BP 111/72; PULSE 100; TEMP 36.6; O2SAT 97
[2016-07-28] VITALS (7 sets, daily range): BP systolic 109–118; BP diastolic 70–71; PULSE 66–88; TEMP 36.5–36.6; O2SAT 96–98
[2016-07-28] MEDS: LEVALBUTEROL 1.25MG/0.5ML NEB INH SCH ×3 (01:49→15:29)
[2016-07-28] MEDS: IPRATROPIUM BROMIDE NEB SOLN 0.02% 2.5 ML VIAL INH SCH ×3 (01:49→15:29)
[2016-07-28 03:34] LABS: URINE APPEARANCE CLEAR (CLEAR); URINE BILIRUBIN NEG (NEG); URINE COLOR YELLOW; URINE NITRITE NEG (NEG); URINE PH 5.5 (4.5-7.5); URINE SPECIFIC GRAVITY 1.023 (1.000-1.030); UROBILINOGEN NEG (NEG); ZZUR CULT IF INDIC CLEAN CATCH NO
[2016-07-28 03:41] LABS: MANUAL MICROSCOPIC REQUIRED? NO; REVIEW REQ? NO
[2016-07-28 04:08] LABS: COMPLETE YES; IG% 0.4 %; LYMPH % 4.2 %; LYMPH ABS # 0.61 K/uL (1.2-3.4); MEAN CELL VOLUME 76.1 fL (80-100); MEAN CORPUSCULAR HEMOGLOBIN 23.9 pg (25-34); MEAN CORPUSCULAR HGB CONC 31.5 g/dl (32-36); MEAN PLATELET VOLUME 9.4 fL (7.4-10.4); MONO % 2.6 %; NEUT % 92.8 %; PLATELET COUNT 394 K/uL (130-400); RED BLOOD COUNT 4.47 M/uL (4.2-5.4); WHITE BLOOD COUNT 14.46 K/uL (4.8-10.8)
[2016-07-28 04:29] LABS: CALCIUM 8.9 mg/dl (8.5-10.1); CREATININE 1.2 mg/dl (0.60-1.20); MAGNESIUM 2.1 mg/dl (1.8-2.4); POTASSIUM 4.1 mmol/L (3.5-5.1)
[2016-07-28] MEDS: TICAGRELOR 90 MG TAB PO SCH (08:45)
[2016-07-28] MEDS: MAGNESIUM OXIDE 400 MG TAB PO SCH (08:48)
[2016-07-28] MEDS ORDERED: ATORVASTATIN 40 MG TAB PO SCH (09:00)
[2016-07-28] MEDS ORDERED: PANTOprazole SOD 40 MG TAB PO SCH (09:00)
[2016-07-28] MEDS ORDERED: HYDROCORTISONE 10 MG TAB PO SCH ×2 (09:00→14:00)
[2016-07-28] MEDS ORDERED: METOPROLOL TARTRATE 50 MG TAB PO SCH (09:00)
[2016-07-28] MEDS ORDERED: ASPIRIN 81 MG ECTAB PO SCH ×2 (09:00)
[2016-07-28 12:14] LABS: CKMB/CK RATIO 3.3 (0-3.0)
--- NOTE | 2016-07-28 13:50 | Discharge Instructions ---
Discharge Instructions Date of Service Jul 28, 2016. Admission Reason for Admission: Chest Tightness/Pressure, Stented Coronary Artery Discharge Discharge Diagnosis / Problem: Asthma exacerbation Discharge Goals Goal(s): Decrease discomfort, Improve function, Increase independence, Improve disease control, Improve nutritional status, Learn about illness, Diagnostic testing, Therapeutic intervention, Screening, Prevent Disease Progression, Specific goals Activity Recommendations Activity Limitations: resume your previous activity . Instructions / Follow-Up Instructions / Follow-Up You presented the hospital with chest tightness and shortness of breath likely due to an asthma exacerbation. Imaging, and labs EKG were not consistent with Pneumonia, Pulmonary Embolus, Heart attack. -Please followup with your Primary care provider/ Sanitation Lead within 1-2 wks -Please take medication as prescribed -If you experience recurrence or worsening of symptoms, of fever >100.4 chills, Chest pain, palpitation, Shortness of breath, please either call clinic or return to Emergency Dept for evaluation Current Hospital Diet Patient's current hospital diet: AHA Diet (Heart Healthy) Discharge Diet Recommended Diet: AHA Diet (Heart Healthy) Pending Studies Studies pending at discharge: no Medical Emergencies . Who to Call and When: Medical Emergencies: If at any time you feel your situation is an emergency, please call 911 immediately. . Non-Emergent Contact Non-Emergency issues call your: Primary Care Provider, Sanitation Lead Call Non-Emergent contact if: you have a fever, your pain is not controlled, your pain is worsening, your pain is unusual for you, your pain is concerning you, you have any medication questions . . "Provider Documentation" section prepared by Alfred Dave. VTE Core Measure Inpt VTE Proph given/why not?: SCD's
[2016-07-28] MEDS ORDERED: PRED-301 PO ×3 (14:33→14:51)
[2016-07-28] MEDS ORDERED: PRED10TA PO ×2 (14:33)
--- NOTE | 2016-07-28 14:41 | ECHOCARDIOGRAM REPORT ---
*NOTICE TO RECEIVING [employer] This information is strictly Confidential and protected under [place] law. [place] law prohibits you from making any further disclosure of this information unless further disclosure is expressly permitted by the written consent of the person to whom it pertains or is authorized by law. A general authorization for the release of medical or other information is not sufficient for this purpose. Hospital accepts no responsibility if the information is made available to any other person, INCLUDING THE PATIENT. Interpretation Summary * Name: ALBIN ALVAREZ Study Date: 07/28/2016 09:36 AM BP: 112/70 mmHg * Patient Location: [facility] [place] HR: 82 * : 1965 (M/d/yyyy) Gender: Female Height: 62 in * Age: 50 yrs Ethnicity: [place] Weight: 182 lb * Ordering Physician: Earl Hyatt MD * Performed By: Sherri Thomas RDCS * * Reason For Study: Chest pain * BSA: 1.8 m2 * Normal biventricular systolic function. * Left ventricular diastolic dysfunction. * Normal chamber dimensions. * Trace mitral regurgitation. * No significant changes from study of 06/05/16 Procedure Details * A complete two-dimensional transthoracic echocardiogram was performed (2D, M-mode, Doppler and color flow Doppler). Left Ventricle * The left ventricle is normal in size. * There is normal left ventricular wall thickness. * Ejection Fraction = 55-60%. * Left ventricular systolic function is normal. * A full diastolic examination was done with clinical findings of Class I diastolic dysfunction. * The left ventricular wall motion is normal. Right Ventricle * The right ventricle is normal in size and function. Atria * The left atrial size is normal. * Right atrial size is normal. * No ASD detected; PFO is not assessed. Mitral Valve * The mitral valve is normal. * There is no mitral valve stenosis. * There is trace mitral regurgitation. Tricuspid Valve * The tricuspid valve is normal. * There is no tricuspid stenosis. * No tricuspid regurgitation. Aortic Valve * The aortic valve is trileaflet. * The aortic valve opens well. * Aortic stenosis is absent. * No aortic regurgitation is present. Pulmonic Valve * The pulmonary valve is inadequately visualized, but the Doppler data is adequate for interpretation. * There is no pulmonic valvular stenosis. * There is no pulmonic valvular regurgitation. Great Vessels * The aortic root is normal size. Pericardium/Pleural * There is no pericardial effusion. Great Vessels * Normal inferior vena cava diameter and respiratory variation suggests normal central venous pressure. MMode 2D Measurements and Calculations IVSd 0.81 cm LVIDd 5.4 cm LVIDs 3.7 cm LVPWd 0.94 cm IVS/LVPW 0.87 FS 31.0 % EDV(Teich) 142.1 ml ESV(Teich) 59.5 ml EF(Teich) 58.1 % EDV(cubed) 158.6 ml ESV(cubed) 52.1 ml EF(cubed) 67.1 % LV mass(C)d 174.7 grams LV mass(C)dI 95.1 grams/m\S\2 CO(Teich) 5.0 l/min CI(Teich) 2.7 l/min/m\S\2 SV(Teich) 82.6 ml SI(Teich) 45.0 ml/m\S\2 CO(cubed) 6.5 l/min CI(cubed) 3.5 l/min/m\S\2 SV(cubed) 106.5 ml SI(cubed) 58.0 ml/m\S\2 Ao root diam 2.6 cm Ao root area 5.4 cm\S\2 ACS 1.6 cm LA dimension 3.4 cm asc Aorta Diam 2.6 cm LA/Ao 1.3 LVOT diam 1.8 cm LVOT area 2.6 cm\S\2 LVAd ap4 23.9 cm\S\2 LVLd ap4 7.4 cm EDV(MOD-sp4) 62.6 ml LVAs ap4 15.8 cm\S\2 LVLs ap4 6.2 cm ESV(MOD-sp4) 32.3 ml EF(MOD-sp4) 48.4 % LVAd ap2 23.9 cm\S\2 LVLd ap2 7.1 cm EDV(MOD-sp2) 65.9 ml LVAs ap2 14.4 cm\S\2 LVLs ap2 6.0 cm ESV(MOD-sp2) 28.6 ml EF(MOD-sp2) 56.6 % CO(MOD-sp4) 1.8 l/min CI(MOD-sp4) 1.0 l/min/m\S\2 SV(MOD-sp4) 30.3 ml SI(MOD-sp4) 16.5 ml/m\S\2 CO(MOD-sp2) 2.3 l/min CI(MOD-sp2) 1.2 l/min/m\S\2 SV(MOD-sp2) 37.3 ml SI(MOD-sp2) 20.3 ml/m\S\2 Doppler Measurements and Calculations MV E max sri 90.7 cm/sec MV A max sri 89.7 cm/sec MV E/A 1.0 MV dec time 0.26 sec Ao V2 max 117.3 cm/sec Ao max PG 5.5 mmHg Ao max PG (full) 2.1 mmHg AUDREY(V,A) 2.0 cm\S\2 AUDREY(V,D) 2.0 cm\S\2 LV V1 max PG 3.4 mmHg LV V1 max 91.7 cm/sec PA V2 max 93.4 cm/sec PA max PG 3.5 mmHg PA acc slope 360.5 cm/sec\S\2 PA acc time 0.17 sec PA pr(Accel) 4.5 mmHg
--- NOTE | 2016-07-28 16:09 | Discharge Summary ---
Discharge Summary Date of Service Jul 28, 2016. Discharge Summary Admission Date: Jul 27, 2016 at 19:43 Discharge Date: Jul 28, 2016 Discharge Disposition: Home Principal Diagnosis: asthma exacerbtion, influenza exposure Immunizations: Have You Had Influenza Vaccine: Unknown Influenza Vaccine Date: Feb 24, 2006 History of Tetanus Vaccine?: Unknown History of Pneumococcal: Unknown History of Hepatitis B Vaccine: No Medication Reconciliation New Medications: Prednisone (Prednisone) 5 Mg Tab 5 MG PO UD for 8 Days, #8 TAB Please combine 5mg, 10 mg tablets accordingly: Take 40 mg daily x2 days Take 35 mg daily x2 days Take 30 mg daily x2 days Take 25 mg daily x2 days Take 20 mg daily x2 days Take 15 mg daily x2 days Take 10 mg daily x2 days Take 5 mg daily x2 days Prednisone Tab (Prednisone) 10 Mg Tab 10 MG PO UD for 16 Days, #86 TAB Take 40 mg daily x2 days Take 35 mg daily x2 days Take 30 mg daily x2 days Take 25 mg daily x2 days Take 20 mg daily x2 days Take 15 mg daily x2 days Take 10 mg daily x2 days Take 5 mg daily x2 days Continued Medications: Aspirin (Aspirin Ec) 81 Mg Tab 81 MG PO QAM Atorvastatin (Lipitor) 80 Mg Tab 80 MG PO QAM Cetirizine (Zyrtec) 10 Mg Tab 10 MG PO DAILY PRN for Allergy Symptoms, TAB Citalopram Hydrobromide (Citalopram Hydrobromide) 20 Mg Tab 20 MG PO HS, TAB Diphenhy/Alum/Mag/Sucralfa (Magic Swizzle - Diphenhy/Alum/Mag/Sucralfa) Susp 30 ML PO QID PRN for Acid Reflux, ML 30ML DIPHENHYDRAMINE SLN 12.5/5ML 60ML MAALOX 4GM CARAFATE SWISH AND SWALLOW Esomeprazole Magnesium (Nexium 24Hr) 20 Mg Cap 20 MG PO UD PRN for Acid Reflux Fluticasone Prop/Salmeterol (Advair Diskus 500/50 60 Dose) 1 Ea Aerp 1 PUFF INH BID, INHALER Fluticasone Propionate (Nasal) (Flonase Allergy Relief) 50 Mcg/Act Spr 2 SPRAYS JAY QPM PRN for Nasal Congestion Metoprolol Tartrate (Lopressor) (Lopressor) 50 Mg Tab 50 MG PO QAM, TAB Metoprolol Tartrate (Lopressor) (Lopressor) 50 Mg Tab 25 MG PO HS, TAB Mupirocin (Bactroban) 15 Gm Cr 1 APPLN TOP UD PRN for Cold Sores Nitroglycerin (Nitrostat) 0.4 Mg Tab 0.4 MG UT UD PRN for Chest Pain, BTL Pantoprazole (Protonix) 40 Mg Tab 40 MG PO BID Ticagrelor (Brilinta) 90 Mg Tab 90 MG PO BID Discontinued Medications: Hydrocortisone (Cortef) 10 Mg Tab 10 MG PO QAM, TAB Hydrocortisone (Cortef) 10 Mg Tab 5 MG PO Afternoon Discharge Exam Review of Systems: Constitutional: No chills, No fever Respiratory: No cough, No dyspnea at rest, No dyspnea on exertion, No shortness of breath, No sputum, No wheezing Cardiovascular: No chest pain, No edema Abdomen: No diarrhea, No nausea, No pain, No vomiting Musculoskeletal: No joint pain, No muscle pain Genitourinary - Male: No dysuria, No hematuria Psychiatric: No anhedonism, No anxiety, No depression symptoms Physical Exam: General Appearance: WD/WN, no apparent distress Neck: supple, no JVD Respiratory/Chest: chest non-tender, lungs clear, normal breath sounds Cardiovascular: regular rate, rhythm, no murmur Abdomen / GI: normal bowel sounds, non tender, soft Extremities: no pedal edema, normal range of motion Neurologic/Psychiatric: alert, oriented x 3 Hospital Course 50 F admitted with chest pain and known CAD with stent, fortunately did have left heart cath 06/22, which was negative Pt has improved with steroids, no wheezes or chest pain, negative enzymes x3, no new ecg changes and Dr Plaza feels safe for home will have home on steroid taper, did test influenza and is negative follow up with manuel preciado PAC this week Total Time Spent: Greater than 30 minutes This includes examination of the patient, discharge planning, medication reconciliation, and communication with other providers. Discharge Instructions Please refer to the electronic Patient Visit Report (Discharge Instructions) for additional information. Additional Copies To Manuel Preciado PA-C
--- NOTE | 2016-07-28 16:43 | CARDIOLOGY CONSULTATION ---
DATE OF CONSULTATION: 07/28/2016 DATE OF CONSULTATION: 07/28/2016. PRIMARY PHYSICIAN: Beni Mitchell M.D. REFERRING PHYSICIAN: Earl Hyatt M.D. ATTENDING PHYSICIAN: Earl Hyatt M.D. CONSULTATION: Raul Plaza M.D. HISTORY OF PRESENT ILLNESS: The patient is a 50-year-old white female. She is well known to me. History of coronary artery disease, severe asthma, gastroesophageal reflux disease, adrenal insufficiency, chronic iron deficiency anemia. She also has a history of dyslipidemia. No history of hypertension or diabetes mellitus. The patient states that recently she has been feeling well. This is better than she has felt over the past several months. On 07/24/2016 he began to develop wheezing and sensation of chest tightness. The chest tightness worse with deep inspiration. Her chest tightness and wheezing progressed throughout the week. She states that these are her typical asthma symptoms. On 07/27/2016 the symptoms markedly worsened. She felt like she was not moving any air. This is despite using her home nebulizer. Because of respiratory distress her called emergency medical services. She was brought emergently to the Emergency Department. She was given a nebulizer and intravenous steroids. She was admitted to the telemetry unit. She states that her wheezing and dyspnea have markedly improved since admission. She denies any dyspnea or wheezing this morning. The patient has a history of coronary artery disease. This started on 11/13/2015 when she presented with an acute coronary syndrome. Emergency cardiac catheterization revealed a subtotal proximal LAD occlusion and 90% mid LAD stenosis. A 3 x 26 mm and 2.75 x 8 mm Resolute drug-eluting stents placed in the proximal and mid LAD respectively. Residual stenosis 0%. The RCA was not selectively cannulated on that emergency catheterization. On 11/16/2015 was planned to perform elective cardiac catheterization to visualize the RCA. Prior to undergoing catheterization she developed severe recurrent anginal symptoms. The catheterization was performed emergently. It revealed a total early mid RCA occlusion. A 3 x 26 mm Resolute drug-eluting stent deployed in the mid RCA. No residual stenosis. LV angiography revealed hypokinesis of the posterobasal segment. Readmission to [facility] on 12/22/2015 with sharp mid retrosternal chest discomfort different than her anginal symptoms. Negative cardiac enzymes. Stress echo 12/23/2015 negative for evidence of myocardial ischemia at 68% maximum predicted heart rate. Readmission to [facility] 01/17/[address] scan revealed pulmonary embolus. Venous ultrasound revealed no evidence of deep venous thrombosis. She was started on anticoagulation therapy at that time. She is already on dual antiplatelet therapy with both aspirin and Brilinta. Readmission to [facility] 04/08/2016 with chest pain, severe anemia, and severe abnormal uterine bleeding. The abnormal uterine bleeding is a chronic problem with her. This has caused her to have a chronic iron deficiency anemia. Her cardiac enzymes were elevated during the admission. Echocardiogram revealed normal biventricular systolic function and wall motion. It was felt that her elevated cardiac enzymes were secondary to demand ischemia. During the admission, she received transfusion of 3 units of packed red blood cells. She was readmitted on 06/04/2016 with recurrent retrosternal chest discomfort. She was again found to have an anemia. Her troponin I's were elevated. They were 2.240 and 2.370. Following admission, she continued to have episodes of retrosternal and scapular pain. She stated it was different than her prior anginal symptoms. The discomfort improved if she drank water or ate food. Because of the elevated cardiac enzymes, it was felt best to perform a repeat cardiac catheterization. This was performed on 06/06/2016. It revealed patent proximal mid LAD stents. Patent mid right coronary artery stent. 30% LAD diagonal stenosis. The patient's anginal symptoms at the time of her myocardial infarction 11/13/2015 and also one 11/16/2015 was a burning and aching retrosternal discomfort which radiated into both arms, shoulders, and neck. She had associated dyspnea, nausea, diaphoresis. She denies any recent episodes of such symptoms. She states that the chest tightness of which he complained last evening is her typical chest tightness associated with exacerbations of her asthma. It is worse with taking a deep breath. She denies any of her prior anginal type symptoms on this admission. She denies any orthopnea or PND prior to exacerbation of her asthma. No cough. No fevers or chills. No palpitations, lightheadedness, or syncope. No leg edema. No menstrual bleeding of any significance since placement of an IUD. No GI complaints. No urinary complaints. No cerebrovascular complaints. She states that she has been taken off of her warfarin. She completed 6 months of therapy. PAST MEDICAL HISTORY: 1. Coronary artery disease as above. 2. Longstanding history of asthma. 3. Adrenal insufficiency secondary to chronic steroid use. She required high doses of steroids in the past for control of her asthma. 4. Chronic iron deficiency anemia. 5. Gastroesophageal reflux disease. 6. Longstanding history of recurrent nausea and vomiting. 7. Irritable bowel syndrome. 8. History of depression and anxiety. 9. History of anaphylactoid reaction to an iron transfusion January 2016. 10. Dyslipidemia. PAST SURGICAL HISTORY: 1. Status post laparoscopic cholecystectomy. 2. Permanent indwelling central venous catheter. 3. History of retrieval of a fractured segment of the catheter in the pulmonary artery in 2010. 4. Status post hemorrhoid surgery. 5. Status post EGD 06/22/2016. She was found to have gastric polyps which were removed. No evidence of any active bleeding sites. Duodenum was normal. The esophagus was normal. ALLERGIES AND ADVERSE DRUG REACTIONS: CEPHALOSPORINS, CLARITHROMYCIN, CLAVULANIC ACID, ERYTHROMYCIN, MACROLIDES, PENICILLINS, SULFA DRUGS, BETA LACTAMS. ANAPHYLACTOID REACTION TO IRON TRANSFUSION IN 2015. ADVERSE REACTIONS TO FEXOFENADINE AND FORMOTEROL. CURRENT MEDICATIONS: Singulair 10 mg at bedtime, hydrocortisone 7.5 mg daily at 2:00 p.m., aspirin 81 mg daily, atorvastatin 80 mg daily, hydrocortisone 12.5 mg q.a.m., metoprolol tartrate 50 mg q.a.m., pantoprazole 40 mg daily, citalopram 20 mg at bedtime, metoprolol tartrate 25 mg at bedtime, ticagrelor 90 mg p.o. b.i.d., magnesium oxide 400 mg b.i.d., famotidine 20 mg at bedtime, Atrovent and Xopenex nebulizers q. 6 hours, Zyrtec 10 mg daily, Flonase 2 sprays daily. SOCIAL HISTORY: The patient is and lives with her . Two children. She does not smoke cigarettes. She does not drink alcohol. FAMILY HISTORY: Brother with history of AR in his 60s. Family history of reactive airway disease. Her mother has a history of breast cancer. PHYSICAL EXAMINATION: GENERAL: The patient was sitting up in her bed. No distress. VITAL SIGNS: This morning with oral temperature 36.5, pulse 66, blood pressure 118/71, pulse oximetry on room air 96%. GENERAL APPEARANCE: Is normal. No distress. HEAD: Normal. EYES: Pupils equal and round. Anicteric. Conjunctivae normal. NECK: No jugular venous distension. Carotids 2/2 bilaterally. Normal upstroke. No bruits. LUNGS: Normal respiratory effort. Normal air movement in all lung ludwig. No rales or wheezes. No rhonchi. HEART: PMI normal. No lifts or heaves. Regular rate and rhythm. S1, S2 normal. No S3 or S4. No murmur or rub. ABDOMEN: Soft. Nontender. No palpable masses or organomegaly. No bruits. EXTREMITIES: No pretibial edema. PULSES: Distal pulses in all extremities palpable. NEUROLOGICAL: Alert and oriented x3. Motor grossly intact. PSYCHIATRIC: Affect normal. DATA: Echocardiogram performed today and reviewed by me shows normal left ventricular wall motion and systolic function. Left ventricular diastolic dysfunction. Trace mitral regurgitation. No significant change from echocardiogram 06/05/2016. Electrocardiogram yesterday with sinus rhythm, premature ventricular beats, minor nonspecific ST and T-wave abnormalities. Otherwise normal. Electrocardiogram performed today with normal sinus rhythm. Minor nonspecific ST and T-wave abnormalities. Both electrocardiograms were reviewed by me. Troponin I's on this admission are 0.036, 0.020, 0.021, and 0.025. CK totals are 77, 92, 88, and 86. CK-MBs 2.4, 3.4, 3.5, and 2.8. Metabolic profile today with sodium 140, potassium 4.1, chloride 107, carbon dioxide 25, BUN 12, creatinine 1.20, random glucose 188. Magnesium 2.1. CBC with WBC 14.46, hemoglobin 10.7, hematocrit 34.0, platelet count 394. INR yesterday 1.0. PTT 29.2. Nasal swab for influenza A and B negative. Urinalysis today normal. Chest CT scan performed yesterday revealed no evidence for pulmonary embolus. Clear lung ludwig. Chest x-ray performed yesterday was normal. Chest x-ray reviewed by me. ASSESSMENT: 1. Exacerbation of her longstanding asthma over the past several days. Manifested by increased dyspnea, wheezing, and chest tightness. The chest tightness is her typical symptom with her asthma. Her bronchospasm has improved since admission. This morning when I saw her she no evidence of bronchospasm on exam. No respiratory difficulty. Good oxygen saturation on room air. Clear lung ludwig on exam. 2. History of coronary artery disease. Two stents in LAD. She also has a stent in RCA. She has not had any recent episodes of her typical anginal and myocardial ischemic type pains. Her exercise tolerance recently has been better than it has for the past several months. Her electrocardiogram reveals no evidence of myocardial ischemia. Cardiac enzymes are negative for myocardial injury. Echocardiogram with normal LV wall motion. 3. History of gastroesophageal reflux disease. She states she has not been experiencing any of her typical GE reflux symptoms recently. Recent EGD showed normal esophagus. 4. Dyslipidemia. RECOMMENDATIONS: 1. No further cardiac workup. From a cardiac standpoint, the patient can be discharged home. 2. Continue her current cardiac type medications. 3. Continue dual antiplatelet therapy. Would like to continue dual antiplatelet therapy for at least 1 year. She will need to remain on aspirin therapy indefinitely. ADDENDUM: The patient had been having severe disfunctional uterine bleeding from heavy menstrual flow. After implantation of the ICD her menstrual bleeding has ceased. Her hemoglobin has markedly improved compared to several months ago. With the improvement in her hemoglobin her fatigue has resolved. Thank you for asking me to see this patient in cardiology consultation.
[2016-07-28] MEDS ORDERED: MONTELUKAST SOD 10 MG TAB PO SCH (21:00)
[2016-11-28] MEDS ORDERED: DXY100 PO (09:02)
[2016-11-28] MEDS ORDERED: PRED10TA PO (09:02)
[2016-11-28] MEDS ORDERED: MONT1TAB3 PO (09:02)
[2016-11-28] MEDS ORDERED: CRFUDL PO (09:02)
[2016-11-28] MEDS ORDERED: AZEL0.15 NAE (09:02)
== END 2016-07-28 15:40 | disposition home or self-care (01) ==
LOC: ENRESERVDT → ENRESERVTM → EDBD 14:34 → C.EDB 14:35 → C.2T 19:43
PROVIDERS: ADMIT Hospitalist; ATTEND Hospitalist
DX: J45.901 Unspecified asthma with (acute) exacerbation (principal); K21.0 Gastro-esophageal reflux disease with esophagitis; I25.10 Atherosclerotic heart disease of native coronary artery without angina pectoris; E27.40 Unspecified adrenocortical insufficiency; E78.5 Hyperlipidemia, unspecified; I10 Essential (primary) hypertension; F32.9 Major depressive disorder, single episode, unspecified; I25.2 Old myocardial infarction; Z79.82 Long term (current) use of aspirin; Z86.711 Personal history of pulmonary embolism; Z82.49 Family history of ischemic heart disease and other diseases of the circulatory system; Z80.3 Family history of malignant neoplasm of breast

== ENCOUNTER → 2016-08-16 | Outpatient (CLI) | payer BC ==
[~2016-08-16] MED LIST changes: +ADVIN50/60 INH; +AZEL0.15 NAE; +BCTCR TOP; +CRFUDL PO; +DXY100 PO; +ESOM1CAP24 PO; +FLUO20CA35 PO; +FLUT0.15 NAE; -HYD10 PO; +MAGIC1 PO; +METO50TA16 PO; +MONT1TAB3 PO; +NTRGSL/4 UT; +PANT40TA PO; +PRED-301 PO; +PRED10TA PO; -SUCR1TAB29 PO; -WARF5TAB7 PO; -ZNTT/150 PO
--- NOTE | 2016-08-16 15:03 | MAMMOGRAPHY REPORT ---
UNILATERAL RIGHT DIGITAL DIAGNOSTIC MAMMOGRAM: 08/16/2016 CLINICAL HISTORY: Indeterminate calcifications in the right upper outer quadrant for which stereotac tic biopsy was recommended. TECHNIQUE: A preprocedural right cc view was obtained for biopsy planning purposes. A spot magnifi cation right ML view was also obtained. COMPARISON: Comparison is made to exams dated: 07/11/2016 mammogram, 07/04/2016 mammogram, 04/26/2015 m ammogram, 04/20/2014 mammogram, 03/18/2013 mammogram, and 01/16/2012 mammogram - [facility]. BREAST COMPOSITION: There are scattered areas of fibroglandular density in the right breast. FINDINGS: A preprocedural right cc view was obtained for biopsy planning purposes before the stereo tactic biopsy. The procedure as well as risks of stereotactic biopsy were discussed with the patien t, and written consent was obtained. The patient was placed prone on the stereotactic table. Jig Fitter images were obtained in the craniocau bria projection. On the [employer] scout images, there was a cluster of calcifications in the expected location of the indeterminate calcifications in question, which were shown to layer on the [employer] scout image, sugg estive of benign milk of calcium. Other scattered layering calcifications were noted in the region. A spot magnification right ML view was obtained with the patient standing. The cluster of calcifi cations in question did not clearly layer on the spot magnification view. However, scattered and gr ouped calcifications are seen throughout the right superior breast, which appear similar to the clus ter in question. Many of the other calcifications in the right superior breast do demonstrate layer ing and are consistent with benign milk of calcium. Given the probable layering on the stereotactic table and given the presence of other layering calcifications in the right breast, the cluster of c alcifications is probably benign and likely represents milk of calcium. As the calcifications likel y represent milk of calcium, biopsy was not performed. IMPRESSION: ACR-BI-RADS CATEGORY 3: PROBABLY BENIGN The small cluster of calcifications in the right upper outer quadrant showed probable layering on th e [employer] scout images on the stereotactic biopsy table, suggestive of benign milk of calcium. Therefore, t he biopsy was not performed. The calcifications are probably benign and likely represent benign mil k of calcium, as seen elsewhere in the right superior breast. Recommend follow-up diagnostic mammog chris of the right breast in 6 months to confirm stability. The patient has been verbally notified of the results. Approximately 10% of breast cancers are not detected with mammography. A negative mammographic repor t should not delay biopsy if a clinically suggestive mass is present. Vanessa Bahena M.D. ah/:08/16/2016 13:40:24 Senior Database Programmer: Esthela ELIZABETH)([place]), [facility] letter sent: Follow Up Recommended 3 BI-RADS Code: ACR-BI-RADS Category 3: Probably Benign
== END | disposition home or self-care (01) ==
LOC: C.MAMM 12:45
PROVIDERS: ATTEND Obstetrics & Gynecology
DX: R92.1 Mammographic calcification found on diagnostic imaging of breast (principal)

== ENCOUNTER → 2016-10-19 | Outpatient (CLI) | payer BC ==
[2016-10-19 15:47] LABS: BASO % 1.1 %; COMPLETE YES; EOS % 10.7 %; HEMATOCRIT 41.9 % (37-47); IG% 0.5 %; LYMPH % 17.7 %; LYMPH ABS # 1.66 K/uL (1.2-3.4); MEAN CELL VOLUME 84.5 fL (80-100); MEAN CORPUSCULAR HGB CONC 33.2 g/dl (32-36); MEAN PLATELET VOLUME 10.1 fL (7.4-10.4); MONO % 8.7 %; NEUT % 61.3 %; PLATELET COUNT 310 K/uL (130-400); RED BLOOD COUNT 4.96 M/uL (4.2-5.4); WHITE BLOOD COUNT 9.36 K/uL (4.8-10.8)
[2016-10-19 16:17] LABS: ALT/SGPT 34 U/L (12-78); BLOOD UREA NITROGEN 7 mg/dl (7-18); BUN/CREATININE RATIO 6.9 (10-20); CARBON DIOXIDE 26 mmol/L (21-32); CHLORIDE 111 mmol/L (98-107); CREATININE 0.99 mg/dl (0.60-1.20); GLUCOSE 86 mg/dl (70-99); POTASSIUM 3.5 mmol/L (3.5-5.1); SODIUM 144 mmol/L (136-145)
[2016-10-19 16:27] LABS: ALKALINE PHOSPHATASE 64 U/L (45-117); AST/SGOT 17 U/L (15-37); FERRITIN 25.5 ng/ml (8.0-388.0)
[2016-10-19 18:05] LABS: CALCIUM 8.7 mg/dl (8.5-10.1)
== END | disposition home or self-care (01) ==
LOC: C.LAB 14:14
PROVIDERS: ATTEND Family Medicine
DX: R53.83 Other fatigue (principal); F45.8 Other somatoform disorders; R13.19 Other dysphagia; R23.8 Other skin changes

== ENCOUNTER → 2016-11-19 | Outpatient (CLI) | payer BC ==
--- NOTE | 2016-11-19 12:20 | DIAGNOSTIC IMAGING REPORT ---
VIDEO SWALLOW HISTORY: CERVICAL DYSPHAGIA. History of hiatal hernia. TECHNIQUE: Video fluoroscopic evaluation of swallowing was performed in the AP and lateral projections by the speech pathology staff. The patient is fed nectar-thick and thin liquid barium, a barium coated wafer, and barium pudding. FLUOROSCOPY TIME: 2.3 minutes. COMPARISON STUDY: Chest CT 07/27/2016. FINDINGS: There is normal hyoid excursion and epiglottic deflection. No significant penetration or aspiration identified. Swallowing function is within normal limits. IMPRESSION: 1. No aspiration identified. 2. Please see the speech pathologist report for detailed findings and recommendations. Electronically signed by: Tucker Mcgregor M.D. 11/19/2016 12:19 PM Dictated Date/Time: 11/19/2016 12:17 PM
--- NOTE | 2016-11-19 16:14 | SWALLOWING EVALUATION ---
REFERRING SPEECH PATHOLOGIST: May Guerrero MS, CCC-BALE BREAKER OPERATOR/L HISTORY: This 51 year-old female was referred for a VFSS at [facility] in order to address c/o globus sensation, solid food dysphagia and accumulation of saliva while sleeping. The patient has a PMH significant for adrenal dysfunction, and STEMI x 2 (2016 and 2017) with stent placement and PE as complication. Currently the patient's diet level is regular. PROCEDURE: The patient was seen in the Radiology Department of [facility] for the VFSS. Cursory examination of the oral cavity revealed adequate dentition. Movement of the articulators was WNL. The patient was seated on a stool and was viewed in both the Anterior-Posterior (A-P) and Lateral planes. Volitional phonation exercises completed in the A-P plane revealed bilateral vocal fold movement and vocal intensity within functional limits. In the lateral plane, the patient was given the following boluses: 1 tsp. thin liquid barium x 2, single swallow thin liquid barium self-presented from a cup, sequential swallows of thin liquid barium self-presented from a cup, 1 tsp. nectar-thick liquid barium, single swallow nectar-thick liquid barium self-presented from a cup, 1 tsp. barium pudding, and 1 club cracker with barium pudding. The patient was then repositioned into the A-P plane and given 1 tsp. barium pudding. RESULTS: Oral Stage: Labial seal complete. Cohesive bolus between tongue and palate during oral bolus hold exercise with thin liquids; however, the patient did have a tendency to let the bolus creep into the anterior sulci prior to oral-pharyngeal transport. Mastication and bolus transport were timely and efficient. No oral bolus retention. The pharyngeal swallow was initiated when the bolus head was at the posterior angle of the ramus. The oral stage of the swallow was WNL. Pharyngeal Stage: No contrast between the soft palate and posterior pharyngeal wall. Laryngeal elevation, anterior hyoid excursion, epiglottic inversion, laryngeal vestibular closure, pharyngeal stripping wave, and pharyngeal contraction were all complete. The distention and duration of PES opening was complete. There was no residual contrast between the tongue base and pharyngeal wall. There was no pharyngeal bolus retention. There was no penetration or aspiration during the study. The pharyngeal stage of the swallow was WNL. Esophageal Stage: A pudding bolus transited the esophagus without evidence of retention. SUMMARY/RECOMMENDATIONS: This patient presents with normal oral-pharyngeal swallow function. The following is recommended: 1. Regular as tolerated; consider using SLIPPERY foods (per written information provided to the patient) for increased comfort and using a carrier with medications (eg, applesauce, pudding, yogurt) 2. Consideration of further investigation of persistent globus sensation with completion of one or more of the following: Barium Swallow Study, Upper GI Series, pH/Manometry testing 3. This patient may benefit from f/u with a industrial pharmacist for persistent globus sensation. A summary of the results and recommendations was discussed with the patient immediately following the study. She is anticipating f/u with the referring physician. Thank you for referral of this patient. Please contact me at if any additional information is needed.
== END | disposition home or self-care (01) ==
LOC: C.RAD 11:28
PROVIDERS: ATTEND Family Medicine
DX: R13.19 Other dysphagia (principal); F45.8 Other somatoform disorders

== ENCOUNTER 2016-11-27 04:40 | Observation (INO) | payer BC ==
[~2016-11-27] VITALS: Ht 157.5 cm; Wt 81.3 kg
[2016-11-27] VITALS (7 sets, daily range): BP systolic 105–121; BP diastolic 66–74; PULSE 58–76; TEMP 36.4–37.1; O2SAT 96–97; Ht 157.5 cm; Wt 81.3 kg
[~2016-11-27 04:40] MED LIST changes: -AZEL0.15 NAE; -CRFUDL PO; -DXY100 PO; -FLUO20CA35 PO; -MONT1TAB3 PO; -PRED10TA PO
[2016-11-27] MEDS ORDERED: NITROGLYCERIN OINT 2% 1GM PACKET EXT ONE (05:15)
[2016-11-27] MEDS ORDERED: SODIUM CHLORIDE 0.9% 1000ML 1,000 ML IV ONE (05:15)
[2016-11-27 05:16] LABS: COMPLETE YES; HEMATOCRIT 42.3 % (37-47); IG% 0.3 %; LYMPH % 22.9 %; LYMPH ABS # 2.19 K/uL (1.2-3.4); MEAN CORPUSCULAR HEMOGLOBIN 28.6 pg (25-34); MEAN CORPUSCULAR HGB CONC 32.9 g/dl (32-36); MEAN PLATELET VOLUME 10.3 fL (7.4-10.4); MONO % 5.8 %; PLATELET COUNT 314 K/uL (130-400); RED BLOOD COUNT 4.86 M/uL (4.2-5.4); WHITE BLOOD COUNT 9.58 K/uL (4.8-10.8)
[2016-11-27] MEDS ORDERED: NITROGLYCERIN OINT 2% 1GM PACKET ONE (05:23)
[2016-11-27 05:33] LABS: BUN/CREATININE RATIO 8.6 (10-20); CALCIUM 8.8 mg/dl (8.5-10.1); CREATININE 0.96 mg/dl (0.60-1.20); MAGNESIUM 1.8 mg/dl (1.8-2.4); POTASSIUM 3.7 mmol/L (3.5-5.1)
[2016-11-27 05:44] LABS: THYROID STIMULATING HORMONE 6.75 uIu/ml (0.300-4.500)
[2016-11-27] MEDS ORDERED: FLUO20CA35 PO (06:21)
[2016-11-27] MEDS ORDERED: ACETAMINOPHEN 325 MG TAB PO PRN (06:30)
[2016-11-27] MEDS ORDERED: FLUTICASONE PROPIONATE NA SPR 16 GM BTL NAE PRN (06:30)
[2016-11-27] MEDS ORDERED: CETIRIZINE HCL 10 MG TAB PO PRN (06:30)
[2016-11-27] MEDS ORDERED: NITROGLYCERIN 0.4 MG SL PER TAB CHARGE SL PRN (06:30)
[2016-11-27] MEDS ORDERED: ONDANSETRON INJ 2 MG/ML 2 ML VIAL IV PRN (06:45)
[2016-11-27] MEDS ORDERED: IV FLUIDS COMPLETED PRN (06:45)
--- NOTE | 2016-11-27 06:53 | History and Physical ---
History & Physical Date & Time of Service: Nov 27, 2016 at 06:39 Chief Complaint: Chest Pain Primary Care Physician: Genaro Mitchell M.D. History of Present Illness Source: patient The patient is a 51-year-old female who reports that she woke up this morning with chest tightness, sinus congestion, sweats a cough, and left outer arm discomfort. She has persistent sinus pressure, but reports that some of the chest symptoms went away with taking 2 sublingual nitroglycerin, so she presents to the emergency department for assessment. She has history of asthma and asthma exacerbations and a history of coronary artery disease with 2 coronary artery stents. Past Medical/Surgical History Medical Problems: (1) Asthma Status: Chronic Family History Cancer Diabetes mellitus Gallbladder disease Heart disease Hypertension Lung disease Social History Smoking Status: Never Smoker Smokeless Tobacco Use: No Alcohol Use: none Drug Use: none Marital Status: Housing status: lives with family Occupational Status: retired Immunizations History of Influenza Vaccine: Unknown Influenza Vaccine Date: Feb 24, 2006 History of Tetanus Vaccine?: Unknown History of Pneumococcal: Unknown History of Hepatitis B Vaccine: No Multi-Drug Resistant Organisms History of MDRO: No Allergies Coded Allergies: Rivaroxaban (Verified Allergy, Severe, SHORT OF BREATH/THROAT SWELLING, ) and throat swelling Cephalosporins (Verified Allergy, Intermediate, hives/mild throat swelling Rocephin, 11/27/16) CEFTRIAXONE Clarithromycin (Verified Allergy, Intermediate, HIVES, 11/27/16) Clavulanic Acid (Verified Allergy, Intermediate, HIVES, 11/27/16) Penicillins (Verified Allergy, Intermediate, HIVES, 11/27/16) Sulfa Antibiotics (Verified Allergy, Intermediate, swelling and hives, ) Iron (Verified Allergy, Mild, HANDS/FEET SWELLING/NAUSEA/UNCONSCIOUS, 11/27) CURRENTLY ON IRON INFUSION REGIME - DR ALCANTARA PRESCRIBES - OKAY ON THESE INFUSIONS AT CURRENT TIME Albuterol (Verified Allergy, Unknown, PROAIR (TOLERATES VENTOLIN) PER CARDIO NOTE, 11/27/16) Azithromycin (Verified Allergy, Unknown, per cardio note , 11/27/16) Fexofenadine (Verified Allergy, Unknown, per cardio note , 11/27/16) Formoterol (Verified Allergy, Unknown, per cardio note , 11/27/16) Milk Protein Extract (Verified Allergy, Unknown, per cardio note , 11/27/16 ) Pseudoephedrine (Verified Allergy, Unknown, per cardio note , 11/27/16) Erythromycin (Verified Adverse Reaction, Mild, NAUSEA, 11/27/16) Home Medications Scheduled Aspirin (Aspirin Ec), 81 MG PO QAM Atorvastatin (Lipitor), 80 MG PO QAM Fluoxetine (Prozac), 20 MG PO DAILY Fluticasone Prop/Salmeterol (Advair Diskus 500/50 60 Dose), 1 PUFF INH BID Metoprolol Tartrate (Lopressor) (Lopressor), 50 MG PO QAM Metoprolol Tartrate (Lopressor) (Lopressor), 25 MG PO HS Pantoprazole (Protonix), 40 MG PO BID Scheduled PRN Cetirizine (Zyrtec), 10 MG PO DAILY PRN for Allergy Symptoms Diphenhy/Alum/Mag/Sucralfa (Magic Swizzle - Diphenhy/Alum/Mag/Sucralfa), 30 ML PO QID PRN for Acid Reflux Esomeprazole Magnesium (Nexium 24Hr), 20 MG PO UD PRN for Acid Reflux Fluticasone Propionate (Nasal) (Flonase Allergy Relief), 2 SPRAYS JAY QPM PRN for Nasal Congestion Mupirocin (Bactroban), 1 APPLN TOP UD PRN for Cold Sores Nitroglycerin (Nitrostat), 0.4 MG UT UD PRN for Chest Pain Review of Systems The patient denies palpitations, lower extremity swelling, sore throat, nausea , vomiting, abdominal pain, pelvic pain, blood in urine or stool, dysuria, urinary frequency or urgency, lightheadedness, dizziness, headache, memory loss , rash, abnormal bruising or bleeding, imbalance, focal or generalized weakness , numbness or tingling in legs, arthralgias or myalgias, back or neck pain. The review of systems is otherwise negative other than for that already noted above, and at least 10 systems have been reviewed. Physical Exam Vital Signs Date Time Temp Pulse Resp B/P (MAP) Pulse Ox O2 Delivery O2 Flow Rate FiO2 11/27/16 06:35 61 18 112/66 96 Room Air 11/27/16 05:13 Room Air 11/27/16 04:46 96 Room Air 11/27/16 04:44 36.4 61 22 111/69 92 Room Air The patient is awake, well-developed and adequately nourished, alert and oriented 3, normocephalic and atraumatic, lying in bed and in no acute distress. HEENT--PERRL, EOMI, mucous membranes and oropharynx dry. Neck--supple, no JVD or bruits, thyroid normal, trachea midline, no adenopathy. Heart--normal S1 and S2, no extra beats, no murmurs, rubs or gallops. Lungs--wheezes on the left, lungs are very tight, no respiratory distress at rest, and no accessory muscle use at rest. Abdomen--normal bowel sounds and soft, nontender and nondistended, no hernias or masses, no organomegaly. Extremities--no cyanosis, clubbing or edema. There are good distal pulses b/l. Dermatologic--normal skin turgor, normal color, warm and dry, no abnormal lymph nodes, no rash. Neurologic--cranial nerves II through XII grossly intact, motor and sensory examination normal. Rheumatologic--normal range of motion, nontender, muscles and joints. Psychiatric--normal affect. Diagnostics Laboratory Results Results Past 24 Hours Test 11/27/16 04:50 11/27/16 05:17 Range/Units White Blood Count 9.58 4.8-10.8 K/uL Red Blood Count 4.86 4.2-5.4 M/uL Hemoglobin 13.9 12.0-16.0 g/dL Hematocrit 42.3 37-47 % Mean Corpuscular Volume 87.0 80-100 fL Mean Corpuscular Hemoglobin 28.6 25-34 pg Mean Corpuscular Hemoglobin Concent 32.9 32-36 g/dl Platelet Count 314 130-400 K/uL Mean Platelet Volume 10.3 7.4-10.4 fL Neutrophils (%) (Auto) 58.0 % Lymphocytes (%) (Auto) 22.9 % Monocytes (%) (Auto) 5.8 % Eosinophils (%) (Auto) 12.0 % Basophils (%) (Auto) 1.0 % Neutrophils # (Auto) 5.55 1.4-6.5 K/uL Lymphocytes # (Auto) 2.19 1.2-3.4 K/uL Monocytes # (Auto) 0.56 0.11-0.59 K/uL Eosinophils # (Auto) 1.15 0-0.5 K/uL Basophils # (Auto) 0.10 0-0.2 K/uL RDW Standard Deviation 45.8 36.4-46.3 fL RDW Coefficient of Variation 14.4 11.5-14.5 % Immature Granulocyte % (Auto) 0.3 % Immature Granulocyte # (Auto) 0.03 0.00-0.02 K/uL Sodium Level 142 136-145 mmol/L Potassium Level 3.7 3.5-5.1 mmol/L Chloride Level 110 98-107 mmol/L Carbon Dioxide Level 28 21-32 mmol/L Anion Gap 4.0 3-11 mmol/L Blood Urea Nitrogen 8 7-18 mg/dl Creatinine 0.96 0.60-1.20 mg/dl Est Creatinine Clear Calc Drug Dose 68.4 ml/min Estimated GFR () 79.4 Estimated GFR (Non- 68.5 BUN/Creatinine Ratio 8.6 10-20 Random Glucose 105 70-99 mg/dl Calcium Level 8.8 8.5-10.1 mg/dl Magnesium Level 1.8 1.8-2.4 mg/dl Total Bilirubin 0.4 0.2-1 mg/dl Aspartate Amino Transf (AST/SGOT) 11 15-37 U/L Alanine Aminotransferase (ALT/SGPT) 30 12-78 U/L Alkaline Phosphatase 70 45-117 U/L Total Protein 6.5 6.4-8.2 gm/dl Albumin 3.3 3.4-5.0 gm/dl Globulin 3.2 2.5-4.0 gm/dl Albumin/Globulin Ratio 1.0 0.9-2 Lipase 231 73-393 U/L Thyroid Stimulating Hormone (TSH) 6.750 0.300-4.500 uIu/ml Bedside Troponin I < 0.030 0-0.045 ng/ml CXR normal EKG EKG shows normal sinus rhythm at 60 bpm, improved minor T-wave anterior changes compared to previous, no change prolonged QT. Impression Assessment and Plan The patient is a 51-year-old female with past medical history significant for coronary disease/coronary artery stents 2, severe asthma, GERD, adrenal sufficiency, dyslipidemia, chronic iron deficiency anemia presents to the emergency department with acute onset of upper respiratory and sinus-type symptoms. CAD/hypertension/coronary artery stents/history of STEMI/history of non-STEMI-- the patient will be admitted to the telemetry unit for serial cardiac enzymes, cardiac rhythm monitoring and a 2-D echocardiogram with Dopplers. Initial EKG looks unchanged, and cardiac enzymes are negative. We'll continue her usual medications of aspirin 81 mg by mouth every morning, metoprolol tartrate 50 mg by mouth every morning and 25 mg by mouth at bedtime, and Brilinta 90 mg by mouth twice a day. Severe asthma/sinusitis/asthma exacerbation/early upper respiratory infection-- we will start on IV Solu-Medrol 20 mg every 8 hours, levofloxacin 500 mg IV every 24 hours, guaifenesin extended release 600 mg by mouth twice a day, and Xopenex/Atrovent high flow nebulizers every 6 hours while awake and every 2 hours when necessary. Suspect her symptoms are more related to pulmonary than cardiac, however we'll assess cardiac as her pulmonary symptoms may also stress her cardiac system. GERD/esophagitis history--continue pantoprazole 40 mg by mouth twice a day. Hypercholesterolemia--continue atorvastatin 80 mg by mouth daily. Depression--continue citalopram 20 mg by mouth daily at bedtime. Adrenal insufficiency continue usual dosing of Cortef at 10 mg by mouth every morning and 5 mg by mouth every afternoon, and should get adrenal boost with IV Solu-Medrol being used. Pulmonary issues. Level of Care Telemetry Advanced Directives Existing Advance Directive: No Existing Living Will: No Existing Power of Animal Trainer: No Resuscitation Status FULL RESUSCITATION VTE Prophylaxis VTE Risk Assessment Done? Y/N: Yes Risk Level: Moderate Given or contraindicated: SCD's Social Service Consult None Apply
--- NOTE | 2016-11-27 07:32 | DIAGNOSTIC IMAGING REPORT ---
CHEST ONE VIEW PORTABLE CLINICAL HISTORY: Left-sided chest pain. COMPARISON STUDY: Chest radiograph and chest CT July 27, 2016. FINDINGS: A right subclavian [id number] is unchanged in position. Cardiac size is normal. Mediastinal contours are normal. There is a suspected cardiac stent. There is no evidence of pulmonary edema. Minimal right lower lung opacity suggests atelectasis. IMPRESSION: No acute cardiopulmonary findings. Electronically signed by: Everett Lutz M.D. 11/27/2016 7:31 AM Dictated Date/Time: 11/27/2016 7:29 AM
--- NOTE | 2016-11-27 07:40 | EMERGENCY ROOM VISIT NOTE ---
History First contact with patient: 04:58 Chief Complaint: CHEST PAIN Stated Complaint: CHEST PAIN Nursing Triage Summary: Pt arrives ALS from home Pt was awoken at 0330 with left sided CP that radiated into left bicep Pt took 2 nitro, became nauseous and diaphoretic, BP in the 80's systolically on EMS arrival pmhx: AL November 2015, anxiety Pt had 324ASA and 4mg zofran en route History of Present Illness The patient is a 51 year old female who presents to the Emergency Room with complaints of left sided chest pain that radiates to her left arm. The patient' s symptoms began about 90 minutes ago when she got up to use the bathroom. She states that she had a central chest pain and began with nausea and diaphoresis. The patient has a history of AL 2 and coronary artery disease. Her last AL was about 6 months ago. The patient states that she took 2 nitroglycerin with improvement of her symptoms. She was noted to have some hypotension for EMS, but this is normalized upon arrival. The patient does not have abdominal pain or back pain. No fever. She does not smoke and rates her current discomfort a 2/10. Review of Systems More than 10 systems were reviewed and otherwise negative with the exception of history of present illness. Past Medical/Surgical History Medical Problems: (1) Acute coronary syndrome,ST elevation AL (2) Acute coronary syndrome,ST elevation AL (3) Asthma (4) CAD (coronary artery disease) (5) Chest pain (6) Chest tightness or pressure (7) GERD with esophagitis (8) NSTEMI, initial episode of care (9) pulmonary embo (10) Pulmonary embolism (11) SOB (shortness of breath) (12) Symptomatic anemia Surgical Problems: (1) Stented coronary artery Family History Cancer Diabetes mellitus Gallbladder disease Heart disease Hypertension Lung disease Social History Smoking Status: Never Smoker Smokeless Tobacco Use: No Alcohol Use: none Drug Use: none Marital Status: Housing Status: lives with family Occupation Status: retired Current/Historical Medications Scheduled Aspirin (Aspirin Ec), 81 MG PO QAM Atorvastatin (Lipitor), 80 MG PO QAM Fluoxetine (Prozac), 20 MG PO DAILY Fluticasone Prop/Salmeterol (Advair Diskus 500/50 60 Dose), 1 PUFF INH BID Metoprolol Tartrate (Lopressor) (Lopressor), 50 MG PO QAM Metoprolol Tartrate (Lopressor) (Lopressor), 25 MG PO HS Pantoprazole (Protonix), 40 MG PO BID Scheduled PRN Cetirizine (Zyrtec), 10 MG PO DAILY PRN for Allergy Symptoms Diphenhy/Alum/Mag/Sucralfa (Magic Swizzle - Diphenhy/Alum/Mag/Sucralfa), 30 ML PO QID PRN for Acid Reflux Esomeprazole Magnesium (Nexium 24Hr), 20 MG PO UD PRN for Acid Reflux Fluticasone Propionate (Nasal) (Flonase Allergy Relief), 2 SPRAYS JAY QPM PRN for Nasal Congestion Mupirocin (Bactroban), 1 APPLN TOP UD PRN for Cold Sores Nitroglycerin (Nitrostat), 0.4 MG UT UD PRN for Chest Pain Physical Exam Vital Signs Date Time Temp Pulse Resp B/P (MAP) Pulse Ox O2 Delivery O2 Flow Rate FiO2 11/27/16 06:35 61 18 112/66 96 Room Air 11/27/16 05:13 Room Air 11/27/16 04:46 96 Room Air 11/27/16 04:44 36.4 61 22 111/69 92 Room Air Physical Exam VITALS: Vitals are noted on the nurse's note and reviewed by myself. Vital signs stable. GENERAL: Well-developed, well-nourished, white female, who is in no acute distress and resting comfortably. Patient is cooperative with the examination. NECK: Supple without nuchal rigidity. No lymphadenopathy. No thyromegaly. Cervical spine is nontender. HEART: Regular rate and rhythm without murmurs gallops or rubs. LUNGS: Bilateral wheezing appreciated best in the lower lud[place] ABDOMEN: Positive normal bowel sounds x 4. Soft, nontender, without masses or organomegaly. No guarding or rebound tenderness. MUSCULOSKELETAL: No muscle atrophy, erythema, or edema noted. Full range of motion without joint tenderness in all extremities. Medical Decision & Procedures ER Provider Diagnostic Interpretation: CHEST ONE VIEW PORTABLE CLINICAL HISTORY: Left-sided chest pain. COMPARISON STUDY: Chest radiograph and chest CT July 27, 2016. FINDINGS: A right subclavian [id number] is unchanged in position. Cardiac size is normal. Mediastinal contours are normal. There is a suspected cardiac stent. There is no evidence of pulmonary edema. Minimal right lower lung opacity suggests atelectasis. IMPRESSION: No acute cardiopulmonary findings. Laboratory Results 11/27/16 04:50 Red Blood Count 4.86, Mean Corpuscular Volume 87.0, Mean Corpuscular Hemoglobin 28.6, Mean Corpuscular Hemoglobin Concent 32.9, Mean Platelet Volume 10.3, Neutrophils (%) (Auto) 58.0, Lymphocytes (%) (Auto) 22.9, Monocytes (%) (Auto) 5.8, Eosinophils (%) (Auto) 12.0, Basophils (%) (Auto) 1.0, Neutrophils # (Auto ) 5.55, Lymphocytes # (Auto) 2.19, Monocytes # (Auto) 0.56, Eosinophils # (Auto ) 1.15, Basophils # (Auto) 0.10 11/27/16 04:50 Test 11/27/16 04:50 11/27/16 05:17 White Blood Count 9.58 K/uL (4.8-10.8) Red Blood Count 4.86 M/uL (4.2-5.4) Hemoglobin 13.9 g/dL (12.0-16.0) Hematocrit 42.3 % (37-47) Mean Corpuscular Volume 87.0 fL (80-100) Mean Corpuscular Hemoglobin 28.6 pg (25-34) Mean Corpuscular Hemoglobin Concent 32.9 g/dl (32-36) Platelet Count 314 K/uL (130-400) Mean Platelet Volume 10.3 fL (7.4-10.4) Neutrophils (%) (Auto) 58.0 % Lymphocytes (%) (Auto) 22.9 % Monocytes (%) (Auto) 5.8 % Eosinophils (%) (Auto) 12.0 % Basophils (%) (Auto) 1.0 % Neutrophils # (Auto) 5.55 K/uL (1.4-6.5) Lymphocytes # (Auto) 2.19 K/uL (1.2-3.4) Monocytes # (Auto) 0.56 K/uL (0.11-0.59) Eosinophils # (Auto) 1.15 K/uL (0-0.5) Basophils # (Auto) 0.10 K/uL (0-0.2) RDW Standard Deviation 45.8 fL (36.4-46.3) RDW Coefficient of Variation 14.4 % (11.5-14.5) Immature Granulocyte % (Auto) 0.3 % Immature Granulocyte # (Auto) 0.03 K/uL (0.00-0.02) Anion Gap 4.0 mmol/L (3-11) Est Creatinine Clear Calc Drug Dose 68.4 ml/min Estimated GFR () 79.4 Estimated GFR (Non- 68.5 BUN/Creatinine Ratio 8.6 (10-20) Calcium Level 8.8 mg/dl (8.5-10.1) Magnesium Level 1.8 mg/dl (1.8-2.4) Total Bilirubin 0.4 mg/dl (0.2-1) Aspartate Amino Transf (AST/SGOT) 11 U/L (15-37) Alanine Aminotransferase (ALT/SGPT) 30 U/L (12-78) Alkaline Phosphatase 70 U/L (45-117) Total Protein 6.5 gm/dl (6.4-8.2) Albumin 3.3 gm/dl (3.4-5.0) Globulin 3.2 gm/dl (2.5-4.0) Albumin/Globulin Ratio 1.0 (0.9-2) Lipase 231 U/L (73-393) Thyroid Stimulating Hormone (TSH) 6.750 uIu/ml (0.300-4.500) Bedside Troponin I < 0.030 ng/ml (0-0.045) Medications Administered Medications (Trade) Dose Ordered Sig/Daisha Route Start Time Stop Time Status Last Admin Dose Admin Nitroglycerin (Nitroglycerin 2% Oint) 1 inch NOW ONCE EXT 11/27/16 05:15 11/27/16 05:16 DC 11/27/16 05:24 1 INCH Sodium Chloride 1,000 ml @ 333 mls/hr Q3H1M ONCE IV 11/27/16 05:15 11/27/16 08:15 11/27/16 05:19 333 MLS/HR ECG Change: Normal sinus rhythm @60bpm Nonspecific ST and T wave abnormality Prolonged QT Abnormal ECG When compared with ECG of 28-JUL-2016 06:27, Nonspecific T wave abnormality, improved in Anterior leads ED Course Physical exam and history were performed. Nursing notes, EMR, and Medication List were personally reviewed. Patient appears to have chest pain for the past 90 minutes that relieved with nitroglycerin at home. The patient has an extensive cardiac history. IV access was established and labs were obtained. The patient takes aspirin on a daily basis and was given nitro paste. Chest x-ray was performed and the patient was placed on a cardiac cath lab manager. EKG is as above. The patient's blood work was reviewed. She does not have a significantly elevated white blood cell count, worsening anemia, bandemia, or significant electrolyte imbalance. Lipase and transaminases are nondiagnostic. Troponin 1 is negative. Her TSH is slightly elevated. The case was discussed with my attending physician, Dr. Noyola, and overall we do not feel the patient is stable for discharge home. The patient has a history of AL and may have an asthma exacerbation as well. The case was discussed with the on-call hospitalist who agreed to evaluate the patient here in the department. Please see their dictation for further patient course, plan , and disposition. The chart was completed utilizing [employer] Speech Voice Recognition Software. Grammatical errors, random word insertions, pronoun errors, and incomplete sentences are an occasional consequence of this system due to software limitations, ambient noise, and hardware issues. Any formal questions or concerns about the content, text, or information contained within the body of this dictation should be directly addressed to the provider for clarification. . Medical Decision Differential diagnosis includes, but is not limited to: Myocardial infarction, dysrhythmia, pericarditis, pneumothorax, aortic aneurysm/dissection, DVT/PE, anxiety, GERD, PUD, electrolyte imbalance, thyroid disorder, pneumonia, bronchitis, pancreatitis, and others Medication Reconcilliation Current Medication List: was personally reviewed by me Blood Pressure Screening Patient's blood pressure: Normal blood pressure Impression Primary Impression: Chest pain Additional Impression: Asthma Departure Information Referrals Genaro Mitchell M.D. (PCP) Patient Instructions My [facility] Problem Qualifiers Primary Impression: Chest pain Ischemic chest pain type: unspecified angina pectoris type Additional Impression:
[2016-11-27] MEDS: FLUTICASONE/SALMETEROL (ADVAIR) 500/50 INH 14 PUFF INH SCH ×2 (09:00→21:00)
[2016-11-27] MEDS ORDERED: LEVALBUTEROL/IPRATROPIUM NEB INH SCH (09:00)
[2016-11-27] MEDS ORDERED: ATORVASTATIN 40 MG TAB PO SCH (09:00)
[2016-11-27] MEDS ORDERED: LEVOFLOXACIN / D5W 750 MG in PREMIXED IN D5W 150 ML IV SCH (09:00)
[2016-11-27] MEDS: ASPIRIN 81 MG ECTAB PO SCH (09:00)
[2016-11-27] MEDS ORDERED: PERFLUTREN LIPID MICROSPHERE (DEFINITY) IV ONE (09:02)
[2016-11-27] MEDS ORDERED: PNEUMOCOCCAL ADMINISTRATION CHARGE ONE (10:00)
[2016-11-27] MEDS ORDERED: PNEUMOCOCCAL POLYSACCHARIDES 25 MCG/0.5 ML VIAL/SYR IM. ONE (10:00)
[2016-11-27] MEDS: METHYLPREDNISOLONE IV 20 MG in SYRINGE 0 ML IV SCH ×2 (10:02→17:20)
[2016-11-27] MEDS: METOPROLOL TARTRATE 50 MG TAB PO SCH (10:04)
[2016-11-27] MEDS: PANTOprazole SOD 40 MG TAB PO SCH ×2 (10:04→21:23)
[2016-11-27] MEDS: FLUOXETINE HCL 20 MG CAP PO SCH (10:04)
[2016-11-27] MEDS: ATORVASTATIN 40 MG TAB PO SCH (10:04)
[2016-11-27] MEDS: GUAIFENESIN 600 MG TABCR PO SCH ×2 (10:05→21:23)
--- NOTE | 2016-11-27 11:11 | ECHOCARDIOGRAM REPORT ---
*NOTICE TO RECEIVING [employer] This information is strictly Confidential and protected under [place] law. [place] law prohibits you from making any further disclosure of this information unless further disclosure is expressly permitted by the written consent of the person to whom it pertains or is authorized by law. A general authorization for the release of medical or other information is not sufficient for this purpose. Hospital accepts no responsibility if the information is made available to any other person, INCLUDING THE PATIENT. Interpretation Summary * Name: ALBIN ALVAREZ Study Date: 11/27/2016 08:08 AM BP: 100/58 mmHg * Patient Location: C.2T\S\E218\S\1 HR: 64 * : 1965 (M/d/yyyy) Gender: Female Height: 62 in * Age: 51 yrs Ethnicity: CA Weight: 178 lb * Ordering Physician: Earl Hyatt * Performed By: Myra Beltran * * Reason For Study: CHEST PAIN * BSA: 1.8 m2 * -- Conclusions -- * Left ventricular systolic function is normal. * Small area of akinesis involving the proximal posterior wall. * Ejection Fraction = 55-60%. * No significant valvular pathology. Procedure Details * A complete two-dimensional transthoracic echocardiogram was performed (2D, M-mode, Doppler and color flow Doppler). * A contrast injection of Definity was performed to improve assessment of LV function. * Contrast was injected into an intravenous site in the central line. * One vial of Definity ultrasound contrast was diluted in normal saline to a total volume of 10 ml. A total of '3' ml of solution was administered during imaging. * Lot # [id number] of Definity utilized for procedure. * Expiration date 12/21. * The attending nurse who injected the contrast agent was SERENE WATSON RN. Left Ventricle * The left ventricle is normal in size. * There is normal left ventricular wall thickness. * Ejection Fraction = 55-60%. * Left ventricular systolic function is normal. * Small area of akinesis involving the proximal posterior wall. Right Ventricle * The right ventricle is grossly normal size. * The right ventricular systolic function is normal as assessed by tricuspid annular plane systolic excursion (TAPSE) (normal >1.5 cm). Atria * The left atrial size is normal. * Right atrial size is normal. * No ASD detected; PFO is not assessed. Mitral Valve * The mitral valve is grossly normal. * There is no mitral valve stenosis. * Significant mitral regurgitation is absent. Tricuspid Valve * The tricuspid valve is not well visualized, but is grossly normal. * Significant tricuspid regurgitation is absent. Aortic Valve * The aortic valve is not well visualized. * The aortic valve opens well. * No hemodynamically significant valvular aortic stenosis. * No aortic regurgitation is present. Pulmonic Valve * The pulmonary valve is not well seen, but the Doppler examination is normal without significant regurgitation or stenosis. Great Vessels * The aortic root and proximal ascending aorta are normal sized. * The pulmonary is not well visualized. Pericardium/Pleural * There is no pericardial effusion. Great Vessels * Normal inferior vena cava size and collapsability with sniff indicates a normal right atrial pressure of 3 mmHg MMode 2D Measurements and Calculations IVSd 0.80 cm IVSs 1.1 cm LVIDd 4.3 cm LVIDs 2.9 cm LVPWd 0.74 cm LVPWs 1.4 cm IVS/LVPW 1.1 FS 31.6 % EDV(Teich) 81.5 ml ESV(Teich) 32.7 ml EF(Teich) 59.9 % EDV(cubed) 77.6 ml ESV(cubed) 24.8 ml EF(cubed) 68.0 % % IVS thick 35.0 % % LVPW thick 83.8 % LV mass(C)d 98.5 grams LV mass(C)dI 54.2 grams/m\S\2 LV mass(C)s 107.5 grams LV mass(C)sI 59.1 grams/m\S\2 CO(Teich) 2.8 l/min CI(Teich) 1.5 l/min/m\S\2 SV(Teich) 48.8 ml SI(Teich) 26.8 ml/m\S\2 CO(cubed) 3.0 l/min CI(cubed) 1.7 l/min/m\S\2 SV(cubed) 52.7 ml SI(cubed) 29.0 ml/m\S\2 ACS 1.3 cm asc Aorta Diam 2.0 cm LVOT diam 1.7 cm LVOT area 2.3 cm\S\2 LVAd ap4 25.3 cm\S\2 LVLd ap4 7.2 cm EDV(MOD-sp4) 72.1 ml LVAs ap4 14.1 cm\S\2 LVLs ap4 5.8 cm ESV(MOD-sp4) 27.4 ml EF(MOD-sp4) 62.0 % LVAd ap2 27.9 cm\S\2 LVLd ap2 7.2 cm EDV(MOD-sp2) 87.7 ml LVAs ap2 16.1 cm\S\2 LVLs ap2 6.2 cm ESV(MOD-sp2) 34.8 ml EF(MOD-sp2) 60.3 % CO(MOD-sp4) 2.5 l/min CI(MOD-sp4) 1.4 l/min/m\S\2 SV(MOD-sp4) 44.7 ml SI(MOD-sp4) 24.6 ml/m\S\2 CO(MOD-sp2) 3.0 l/min CI(MOD-sp2) 1.7 l/min/m\S\2 SV(MOD-sp2) 52.9 ml SI(MOD-sp2) 29.1 ml/m\S\2 Doppler Measurements and Calculations MV E max sri 95.6 cm/sec MV A max sri 90.7 cm/sec MV E/A 1.1 MV dec time 0.29 sec Ao V2 max 138.8 cm/sec Ao max PG 7.7 mmHg Ao max PG (full) 2.6 mmHg AUDREY(V,A) 1.9 cm\S\2 AUDREY(V,D) 1.9 cm\S\2 LV V1 max PG 5.1 mmHg LV V1 max 112.5 cm/sec PA V2 max 82.9 cm/sec PA max PG 2.8 mmHg
[2016-11-27] MEDS ORDERED: MONTELUKAST SOD 10 MG TAB PO ONE (11:30)
[2016-11-27] MEDS: SUCRALFATE 1 GM/10 ML UDC PO SCH ×3 (11:58→21:22)
[2016-11-27] MEDS: CETIRIZINE HCL 10 MG TAB PO SCH (11:58)
[2016-11-27] MEDS: FLUTICASONE PROPIONATE NA SPR 16 GM BTL NAE SCH (11:58)
[2016-11-27] MEDS: IPRATROPIUM BROMIDE NEB SOLN 0.02% 2.5 ML VIAL INH SCH ×2 (15:20→20:25)
[2016-11-27] MEDS: LEVALBUTEROL 1.25MG/0.5ML NEB INH SCH ×2 (15:20→20:25)
[2016-11-27 16:24] LABS: URINE APPEARANCE CLEAR (CLEAR); URINE BILIRUBIN NEG (NEG); URINE COLOR YELLOW; URINE NITRITE NEG (NEG); URINE PH 7.5 (4.5-7.5); URINE SPECIFIC GRAVITY 1.008 (1.000-1.030); UROBILINOGEN NEG (NEG); ZZUR CULT IF INDIC CLEAN CATCH NO
[2016-11-27 16:29] LABS: MANUAL MICROSCOPIC REQUIRED? NO; REVIEW REQ? NO
[2016-11-27] MEDS ORDERED: METOPROLOL TARTRATE 25 MG TAB PO SCH (21:00)
[2016-11-27 22:41] LABS: CKMB/CK RATIO 1.7 (0-3.0)
--- NOTE | 2016-11-27 23:42 | Progress Note ---
Progress Note Date of Service Nov 27, 2016. Progress Note Late entry for visit to pt's room earlier this AM - S: During the visit she reported sinus/allergy issues over the last few weeks and asthma symptoms over the past few days. She has not had any recurrent chest symptoms since coming to the hospital. She overall feels better following administration of beta agonist in the ER. c/o frontal headache. c/o reflux symptoms despite use of twice daily PPI. O: VSS no fever gen - nad eyes - allergic shiners face - tender frontal sinuses neck - no JVD heart - RRR, s1, s2 lungs - cta b/l abd - soft, NT ext - no edema initial troponin negative EKG - NS ST changes anteroseptal leads cxr - normal A/P: 1. allergic rhinitis; possible concomitant acute sinusitis; add nasal steroid; add zyrtec; add singulair 2. asthma with exacerbation; cont steroids/abx (latter for sinus infection) 3. chest pain, r/o NM - serial troponins; has known CAD and prior NM with multiple stents 4. refractory GERD despite PPI - trial of carafate probable d/c in AM await karthik CHAVEZ MD
[2016-11-28] MEDS: METHYLPREDNISOLONE IV 20 MG in SYRINGE 0 ML IV SCH ×2 (00:46→08:57)
[2016-11-28] MEDS: IPRATROPIUM BROMIDE NEB SOLN 0.02% 2.5 ML VIAL INH SCH ×2 (02:31→07:03)
[2016-11-28] MEDS: LEVALBUTEROL 1.25MG/0.5ML NEB INH SCH ×2 (02:31→07:04)
[2016-11-28 03:25] VITALS: BP 104/64; PULSE 50; TEMP 36.7; O2SAT 96
[2016-11-28 04:57] LABS: BASO % 0.1 %; BASO ABS # 0.01 K/uL (0-0.2); COMPLETE YES; EOS % 0.1 %; HEMATOCRIT 41.4 % (37-47); IG% 0.1 %; LYMPH % 5.7 %; MEAN CORPUSCULAR HEMOGLOBIN 29.2 pg (25-34); MEAN CORPUSCULAR HGB CONC 33.6 g/dl (32-36); MEAN PLATELET VOLUME 10.1 fL (7.4-10.4); MONO % 2.1 %; NEUT % 91.9 %; PLATELET COUNT 294 K/uL (130-400); RED BLOOD COUNT 4.76 M/uL (4.2-5.4); WHITE BLOOD COUNT 14.07 K/uL (4.8-10.8)
[2016-11-28 05:25] LABS: BUN/CREATININE RATIO 8.7 (10-20); CALCIUM 9.1 mg/dl (8.5-10.1); MAGNESIUM 1.9 mg/dl (1.8-2.4); POTASSIUM 4.3 mmol/L (3.5-5.1)
[2016-11-28 07:23] VITALS: BP 108/72; PULSE 52; TEMP 36.7; O2SAT 95
[2016-11-28] MEDS: GUAIFENESIN 600 MG TABCR PO SCH ×2 (07:50→08:56)
[2016-11-28] MEDS: ATORVASTATIN 40 MG TAB PO SCH (07:50)
[2016-11-28] MEDS: CETIRIZINE HCL 10 MG TAB PO SCH (07:50)
[2016-11-28] MEDS: PANTOprazole SOD 40 MG TAB PO SCH (07:51)
[2016-11-28] MEDS: ASPIRIN 81 MG ECTAB PO SCH (07:51)
[2016-11-28] MEDS: SUCRALFATE 1 GM/10 ML UDC PO SCH (07:51)
[2016-11-28] MEDS: FLUOXETINE HCL 20 MG CAP PO SCH (07:51)
[2016-11-28] MEDS: FLUTICASONE PROPIONATE NA SPR 16 GM BTL NAE SCH (07:52)
[2016-11-28] MEDS: FLUTICASONE/SALMETEROL (ADVAIR) 500/50 INH 14 PUFF INH SCH (07:52)
[2016-11-28] MEDS: METOPROLOL TARTRATE 50 MG TAB PO SCH (07:53)
[2016-11-28] MEDS ORDERED: AZEL0.15 NAE (09:02)
[2016-11-28] MEDS ORDERED: DXY100 PO (09:02)
[2016-11-28] MEDS ORDERED: CRFUDL PO (09:02)
[2016-11-28] MEDS ORDERED: MONT1TAB3 PO (09:02)
[2016-11-28] MEDS ORDERED: PRED10TA PO (09:02)
--- NOTE | 2016-11-28 09:14 | Discharge Instructions ---
Discharge Instructions Date of Service Nov 28, 2016. Admission Reason for Admission: Asthma exacerbation, Sinusitis/Allergies, Chest discomfort Discharge Discharge Diagnosis / Problem: 1. Chest pain - resolved, likely due to asthma. 2. sinusitis/allergies Discharge Goals Goal(s): Learn about illness, Diagnostic testing, Therapeutic intervention Activity Recommendations Activity Limitations: resume your previous activity . Instructions / Follow-Up Instructions / Follow-Up From Dr. Su - 1. Chest discomfort at time of ER presentation - * all of your blood work for your heart was NORMAL * your echocardiogram shows evidence of your old heart attack but otherwise was NORMAL with NORMAL heart function * your chest discomfort could have been your asthma, reflux, or muscle (I suspect your asthma) 2. Sinus infection - * take doxycycline 100mg twice daily for 8 days * start this TOMORROW * take with food * doxycycline can cause a rash if you go out in the sun while taking it * cover up in the sun and use sunscreen religiously while on the doxycycline * it can also cause some reflux issues so take with food 3. Sinus issues/allergies - * continue your flonase daily as previous * continue your zyrtec daily as previous * START singulair 10mg at bedtime; this may also help prevent asthma symptoms * you can also use astepro nasal spray on an as needed basis for allergies, if desired 4. Reflux - * carafate liquid 1 gm 30 minutes before meals and at bedtime for 2 weeks * at the 2-week sondra please try to stop the carafate * if you stop the carafate and your reflux issues persist please call Dr. Kay 's office from [facility] to set up an appointment * continue your protonix as previous 5. Asthma - * take prednisone 30mg daily for 4 days; start this today 6. Return to [facility] if - * you experience recurrent chest pain * you experience shortness of breath * fever > 100.4 degrees * worsening cough not responding to your asthma medication 7. Follow-up - * see Dr. Mitchell within 1 week * keep any previously scheduled appointment with Dr. Plaza Current Hospital Diet Patient's current hospital diet: AHA Diet (Heart Healthy) Discharge Diet Recommended Diet: AHA Diet (Heart Healthy) Pending Studies Studies pending at discharge: no Medical Emergencies . Who to Call and When: Medical Emergencies: If at any time you feel your situation is an emergency, please call 911 immediately. . Non-Emergent Contact Non-Emergency issues call your: Primary Care Provider Call Non-Emergent contact if: temperature is above 100.5, your pain is not controlled, your pain is unusual for you, your pain is concerning you, you have any medication questions . . "Provider Documentation" section prepared by Genaro Su. . VTE Core Measure Inpt VTE Proph given/why not?: SCD's
[2016-11-28 09:36] VITALS: BP 108/72; PULSE 52; TEMP 36.7; O2SAT 95
[2016-11-28] MEDS ORDERED: LEVOFLOXACIN 750 MG TAB PO SCH (11:00)
--- NOTE | 2016-11-29 22:21 | Discharge Summary ---
Discharge Summary Date of Service Nov 29, 2016. Discharge Summary Admission Date: Nov 27, 2016 at 06:27 Discharge Date: Nov 28, 2016 Discharge Disposition: Home Principal Diagnosis: asthma exacerbation with acute sinusitis Problems/Secondary Diagnoses: 1. CAD s/p multiple stents to the LAD and RCA 2. asthma 3. allergic rhinitis 4. GERD 5. recent complaint of globus sensation 6. hyperlipidemia 7. depression 8. adrenal insufficiency Immunizations: Have You Had Influenza Vaccine: Unknown Influenza Vaccine Date: Feb 24, 2006 History of Tetanus Vaccine?: Unknown History of Pneumococcal: Unknown History of Hepatitis B Vaccine: No Procedures: echocardiogram: * -- Conclusions -- * Left ventricular systolic function is normal. * Small area of akinesis involving the proximal posterior wall. * Ejection Fraction = 55-60%. * No significant valvular pathology. Medication Reconciliation New Medications: Azelastine Hcl (Astepro) 0.15 % Spr 2 SPRY JAY BID PRN for NASAL CONGESTION/ALLERGIES, #1 BTL 2 Refills Doxycycline Hyclate (Doxycycline Hyclate) 100 Mg Cap 100 MG PO BID for 8 Days, #16 CAP 0 Refills START 11/29/16 Montelukast Sodium (Singulair) 10 Mg Tab 1 TAB PO HS for 30 Days, #30 TAB 5 Refills Prednisone Tab (Prednisone) 10 Mg Tab 30 MG PO DAILY for 4 Days, #12 TAB 0 Refills BEGIN 11/28/16; TAKE WITH FOOD. Sucralfate (Sucralfate) 1 Gm/10 Ml Susp 1 GM PO ACHS for 14 Days, #560 ML 1 Refill TAKE 30 MINUTES PRIOR TO MEALS & AT BEDTIME. Continued Medications: Aspirin (Aspirin Ec) 81 Mg Tab 81 MG PO QAM Atorvastatin (Lipitor) 80 Mg Tab 80 MG PO QAM Cetirizine (Zyrtec) 10 Mg Tab 10 MG PO DAILY PRN for Allergy Symptoms, TAB Fluoxetine (Prozac) 20 Mg Cap 20 MG PO DAILY, CAP Fluticasone Prop/Salmeterol (Advair Diskus 500/50 60 Dose) 1 Ea Aerp 1 PUFF INH BID, INHALER Fluticasone Propionate (Nasal) (Flonase Allergy Relief) 50 Mcg/Act Spr 2 SPRAYS JAY QPM PRN for Nasal Congestion Metoprolol Tartrate (Lopressor) (Lopressor) 50 Mg Tab 50 MG PO QAM, TAB Metoprolol Tartrate (Lopressor) (Lopressor) 50 Mg Tab 25 MG PO HS, TAB Mupirocin (Bactroban) 15 Gm Cr 1 APPLN TOP UD PRN for Cold Sores Nitroglycerin (Nitrostat) 0.4 Mg Tab 0.4 MG UT UD PRN for Chest Pain, BTL Pantoprazole (Protonix) 40 Mg Tab 40 MG PO BID Discontinued Medications: Diphenhy/Alum/Mag/Sucralfa (Magic Swizzle - Diphenhy/Alum/Mag/Sucralfa) Susp 30 ML PO QID PRN for Acid Reflux, ML 30ML DIPHENHYDRAMINE SLN 12.5/5ML 60ML MAALOX 4GM CARAFATE SWISH AND SWALLOW Esomeprazole Magnesium (Nexium 24Hr) 20 Mg Cap 20 MG PO UD PRN for Acid Reflux Discharge Exam Physical Exam: General Appearance: no apparent distress ENT: + nasal congestion, + pharyngeal erythema Neck: no JVD Respiratory/Chest: lungs clear, no respiratory distress, no accessory muscle use Cardiovascular: regular rate, rhythm, no gallop, no murmur, normal peripheral pulses Abdomen / GI: normal bowel sounds, non tender, soft, no organomegaly Extremities: no pedal edema Neurologic/Psychiatric: alert, oriented x 3 Hospital Course HISTORY OF PRESENT ILLNESS: The patient is a 51-year-old female who reports that she woke up this morning with chest tightness, sinus congestion, sweats, a cough, and left outer arm discomfort. She has persistent sinus pressure. She reports that some of the chest symptoms went away with taking 2 sublingual nitroglycerin so she presents to the emergency department for assessment. She has history of asthma and asthma exacerbations and a history of coronary artery disease with 2 coronary artery stents. HOSPITAL COURSE: The patient appeared to have mild asthma exacerbation, acute sinusitis, and refractory allergic rhinitis. She was treated with IV steroids, oral antibiotics, and singulair/nasal steroid , respectively, for the above issues. All pulmonary and sinus symptoms improved prior to discharge. She will complete a short steroid burst, doxycycline, and continue on singulair following discharge. Due to her known CAD and her c/o chest pain at presentation she had serial troponins all of which were negative. Telemetry was normal. ECHO revealed normal EF with a small akinetic area of the posterior wall but the latter was secondary to her prior VT. She had no recurrent chest symptoms while hospitalized. I suspect that some of her chest symptoms were due to asthma and/or reflux disease. Lastly, she reported symptomatic relief of her globus sensation with use of carafate liquid. She was given a 2-week supply of this at discharge and was asked to follow-up with gastroenterology for additional testing. Total Time Spent: Greater than 30 minutes This includes examination of the patient, discharge planning, medication reconciliation, and communication with other providers. Discharge Instructions Please refer to the electronic Patient Visit Report (Discharge Instructions) for additional information. Follow-Up see Dr. Mitchell, PCP, within 1 week Additional Copies To Genaro Mitchell M.D.; Raul Plaza M.D.
== END 2016-11-28 10:05 | disposition home or self-care (01) ==
LOC: C.EDA 04:40 → EDBD 04:40 → C.2T 06:27 → ENRESERV 07:04
PROVIDERS: ADMIT Hospitalist; ATTEND Internal Medicine
DX: R07.9 Chest pain, unspecified (principal); I25.2 Old myocardial infarction; I25.10 Atherosclerotic heart disease of native coronary artery without angina pectoris; Z95.5 Presence of coronary angioplasty implant and graft; E78.5 Hyperlipidemia, unspecified; J45.909 Unspecified asthma, uncomplicated; J30.9 Allergic rhinitis, unspecified; K21.9 Gastro-esophageal reflux disease without esophagitis; E27.40 Unspecified adrenocortical insufficiency; D64.9 Anemia, unspecified; F32.9 Major depressive disorder, single episode, unspecified; Z86.711 Personal history of pulmonary embolism; Z79.82 Long term (current) use of aspirin; Z79.899 Other long term (current) drug therapy

== ENCOUNTER → 2017-06-11 | Outpatient (CLI) | payer OTHER ==
[~2017-06-11] MED LIST changes: +AZEL0.15 NAE; -CITA20TA4 PO; +CRFUDL PO; -ESOM1CAP24 PO; +FLUO20CA35 PO; -MAGIC1 PO; +MONT1TAB3 PO; -PRED-301 PO; -TICA1TAB PO
--- NOTE | 2017-06-12 14:02 | MAMMOGRAPHY REPORT ---
UNILATERAL RIGHT DIGITAL DIAGNOSTIC MAMMOGRAM TOMOSYNTHESIS WITH CAD: 06/11/2017 CLINICAL HISTORY: 51-year-old woman presents for a repeat evaluation in the right breast for a probab ly benign grouping of punctate microcalcifications which were thought to demonstrate layering at the time of a stereotactic biopsy in August 2016, therefore it was canceled. TECHNIQUE: Right breast tomosynthesis in addition to standard 2D mammography was performed. Spot mag nification right CC and ML views were also obtained. Current study was also evaluated with a Compute r Aided Detection (CAD) system. COMPARISON: Comparison is made to exams dated: 08/16/2016 mammogram, 07/11/2016 mammogram, 07/04/2016 ryan mogram, 04/26/2015 mammogram, 04/20/2014 mammogram, and 03/18/2013 mammogram - [facility]. BREAST COMPOSITION: The tissue of the right breast is heterogeneously dense, which may obscure small masses. FINDINGS: There are circumscribed subcentimeter round and oval fluctuating masses in the right breast , most likely represented fluctuating cysts. There are scattered and grouped punctate microcalcifica tions in the right breast. A particular 2 mm grouping of punctate microcalcifications in the upper o uter middle one third of the right breast is again identified and does not appear significantly incre ased in number comparing to the prior spot magnification views obtained 07/11/2016. On the current s pot magnification ML view the grouping is thought to layer, suggesting benign milk of calcium. Other layering calcifications are also seen throughout the superior right breast. No new calcifications, focal area of distortion, suspicious spiculated or irregular mass or developing asymmetry is seen. R ecommend another follow-up diagnostic right mammogram including spot magnification views to ensure at least one year stability. Annual left mammography will also be due at that time. IMPRESSION: ACR-BI-RADS CATEGORY 3: PROBABLY BENIGN The small 2 mm grouping of punctate microcalcifications in the upper outer middle one third of the ri ght breast is thought to layer on the current spot magnification ML view, suggesting benign milk of c alcium. Another short interval follow-up right diagnostic mammogram including spot magnification vie ws is recommended in 6 months to ensure stability. Annual left mammography will also be due at that time. These results and recommendations were discussed with the patient at the time of the exam. Approximately 10% of breast cancers are not detected with mammography. A negative mammographic report should not delay biopsy if a clinically suggestive mass is present. Cassy Abrams M.D. ay/:06/11/2017 14:59:35 Bible Worker: Danny MATHIAS(R)(M), [facility] letter sent: Follow Up Recommended 3 BI-RADS Code: ACR-BI-RADS Category 3: Probably Benign
== END | disposition home or self-care (01) ==
LOC: C.MAMM 14:32
PROVIDERS: ATTEND Obstetrics & Gynecology
DX: R92.0 Mammographic microcalcification found on diagnostic imaging of breast (principal)

== ENCOUNTER → 2017-07-23 | Outpatient (CLI) | payer OTHER | END | disposition home or self-care (01) | LOC: C.LAB 16:06 | PROVIDERS: ATTEND Internal Medicine Endocrinology, Diabetes & Metabolism | DX: E27.49 Other adrenocortical insufficiency (principal) ==

== ENCOUNTER → 2017-07-24 | Outpatient (CLI) | payer OTHER | END | disposition home or self-care (01) | LOC: C.LAB1850 16:19 | PROVIDERS: ATTEND Internal Medicine Endocrinology, Diabetes & Metabolism | DX: E27.49 Other adrenocortical insufficiency (principal) ==

== ENCOUNTER → 2017-07-25 | Outpatient (CLI) | payer OTHER | END | disposition home or self-care (01) | LOC: C.LAB1850 07:56 | PROVIDERS: ATTEND Internal Medicine Endocrinology, Diabetes & Metabolism | DX: E27.49 Other adrenocortical insufficiency (principal) ==

== ENCOUNTER → 2017-08-01 | Outpatient (CLI) | payer OTHER | END | disposition home or self-care (01) | LOC: C.LAB1850 10:29 | PROVIDERS: ATTEND Internal Medicine Endocrinology, Diabetes & Metabolism | DX: E06.3 Autoimmune thyroiditis (principal) ==

== ENCOUNTER 2019-05-29 08:14 | Observation (INO) ==
--- NOTE | 2019-05-11 13:58 | PAT Medication Instructions ---
Medication Instructions Date of Service May 11, 2019 Home Medications albuterol sulfate 90 mcg/actuation aerosol inhaler 2 puffs INHALATION Q4H PRN aspirin 81 mg tablet,delayed release 81 mg PO QAM cetirizine 10 mg tablet 10 mg PO QPM citalopram 40 mg tablet 40 mg PO QPM fluoxetine 40 mg capsule 40 mg PO QPM levonorgestrel 20 mcg/24 hours (5 yrs) 52 mg intrauterine device 1 device IU DAILY metoprolol tartrate 25 mg tablet 25 mg PO HS metoprolol tartrate 50 mg tablet 50 mg PO QAM montelukast 10 mg tablet 10 mg PO QPM nitroglycerin 0.4 mg sublingual tablet 0.4 mg SL Q5M PRN ezetimibe 10 mg PO QAM [id number] [Trelegy Ellipta] 1 puffs INH QPM levothyroxine 75 mcg PO QAM Continue as directed levonorgestrel 20 mcg/24 hours (5 yrs) 52 mg intrauterine device 1 device IU DAILY nitroglycerin 0.4 mg sublingual tablet 0.4 mg SL Q5M PRN ASK your prescriber and surgeon aspirin 81 mg tablet,delayed release 81 mg PO QAM Take morning of surgery With a small sip of water, OTHERWISE NOTHING TO EAT OR DRINK AFTER MIDNIGHT: albuterol sulfate 90 mcg/actuation aerosol inhaler 2 puffs INHALATION Q4H PRN (if needed, and bring with you to the hospital) metoprolol tartrate 50 mg tablet 50 mg PO QAM ezetimibe 10 mg PO QAM levothyroxine 75 mcg PO QAM Take evening before surgery albuterol sulfate 90 mcg/actuation aerosol inhaler 2 puffs INHALATION Q4H PRN (if needed) cetirizine 10 mg tablet 10 mg PO QPM citalopram 40 mg tablet 40 mg PO QPM fluoxetine 40 mg capsule 40 mg PO QPM metoprolol tartrate 25 mg tablet 25 mg PO HS montelukast 10 mg tablet 10 mg PO QPM [id number] [Trelegy Ellipta] 1 puffs INH QPM Other Notes If you have any questions please call us at [phone] or [phone] or [phone] or [phone]
--- NOTE | 2019-05-11 14:04 | Anesthesiology Consultation ---
Date of Service May 11, 2019 Assessment & Plan (1) Encounter for pre-operative examination: Cardiology clearance (Mela) 02/2019 = "The patient is an acceptable cardiac risk to undergo her uterine and bladder surgery. She is not experiencing any anginal or anginal equivalent symptoms. There is no indication for a preoperative stress test to be performed. She can walk a few miles at a time without any anginal symptoms." Chart Review Chart Review: Acceptable Risk for Surgery (pending surgeon ordered UA) and Jeovanny hodges seen in Pre Admission Testing Patient was unable to void at [facility] and will take order to [facility]. Teaching & Discussion Instructed NPO after midnight before surgery, except medications with 15 cc of water. Medication instructions provided according to the [facility] guidelines. Patient aware to check with Dr. Plaza prior to stopping ASA 81mg. History Surgery Operation Date: 05/29/19 07:30 Proposed Procedures p Transvaginal Sling - Ranulfo Townsend, DO s Total Laparoscopic Hysterectomy - Kanika Blandon MD, FACOG Height/Weight Height: 5 ft 2 in Weight: 84.1 kg Allergies Allergy/AdvReac Type Severity Reaction Status Date / Time rivaroxaban Allergy Severe SHORT OF Verified 05/11/19 12:36 BREATH/THROAT SWELLING Cephalosporins Allergy Intermediate hives/mild Verified 05/11/19 12:36 throat swelling Rocephin clarithromycin Allergy Intermediate HIVES Verified 05/11/19 12:36 clavulanic acid Allergy Intermediate HIVES Verified 05/11/19 12:36 Penicillins Allergy Intermediate HIVES Verified 05/11/19 12:36 Sulfa (Sulfonamide Allergy Intermediate swelling Verified 05/11/19 12:36 Antibiotics) and hives iron Allergy Mild HANDS/FEET Verified 05/11/19 12:36 SWELLING/NAUSEA/UNCONSCIOUS albuterol Allergy Unknown PROAIR Verified 05/11/19 12:36 (TOLERATES VENTOLIN) PER CARDIO NOTE amoxicillin [From Augmentin] Allergy Unknown Unknown Verified 05/11/19 12:36 azithromycin Allergy Unknown Hives Verified 05/11/19 12:36 buspirone Allergy Unknown TONGUE Verified 05/11/19 12:36 SWELL ceftriaxone [From Rocephin] Allergy Unknown Hives Verified 05/11/19 12:36 fexofenadine Allergy Unknown Hives Verified 05/11/19 12:36 formoterol Allergy Unknown Hives Verified 05/11/19 12:36 mometasone furoate Allergy Unknown Cough Verified 05/11/19 12:36 [From Nasonex] pseudoephedrine Allergy Unknown IRREGULARA Verified 05/11/19 12:36 HEARTRATE erythromycin base AdvReac Mild NAUSEA Verified 05/11/19 12:36 Medications Home Medications Medication Instructions Recorded Confirmed Last Taken albuterol sulfate 90 mcg/actuation 2 puffs INHALATION Q4H PRN #1 gm 01/12/19 05/11/19 Unknown aerosol inhaler aspirin 81 mg tablet,delayed 81 mg PO QAM #30 tab 01/12/19 05/11/19 Unknown release cetirizine 10 mg tablet 10 mg PO QPM tab 01/12/19 05/11/19 Unknown citalopram 40 mg tablet 40 mg PO QPM tab 01/12/19 05/11/19 Unknown fluoxetine 40 mg capsule 40 mg PO QPM #30 cap 01/12/19 05/11/19 Unknown levonorgestrel 20 mcg/24 hours (5 1 device IU DAILY ea 01/12/19 05/11/19 Unknown yrs) 52 mg intrauterine device metoprolol tartrate 25 mg tablet 25 mg PO HS tab 01/12/19 05/11/19 Unknown metoprolol tartrate 50 mg tablet 50 mg PO QAM #180 tab 01/12/19 05/11/19 Unknown montelukast 10 mg tablet 10 mg PO QPM #30 tab 01/12/19 05/11/19 Unknown nitroglycerin 0.4 mg sublingual 0.4 mg SL Q5M PRN #1 tab 01/12/19 05/11/19 Unknown tablet ezetimibe 10 mg PO QAM 05/04/19 05/04/19 Unknown levothyroxine 75 mcg PO QAM 05/04/19 05/11/19 Unknown fluticasone fur. 100 mcg-umeclid 1 puffs INH QPM #1 inhaler 05/12/19 Unknown 62.5 mcg-vilant 25 mcg inhalat.powder Past Medical History Medical History (Updated 05/11/19 @ 14:16 by Kristofer Hamilton) Anxiety Asthma Stable on Trelegy QPM, has not used prn rescue inhaler in many weeks, is only using it regularly if cold/URI symptoms CAD (coronary artery disease) SHARON X 3 2015 GERD (gastroesophageal reflux disease) History of heart attack Both in November 2015 History of pulmonary embolism Right after cardiac cath/stents Hypothyroidism IUD (intrauterine device) in place mirena- 05/10/16 Nausea and vomiting after administration of anesthetic agent Sarcoidosis ERNESTO (stress urinary incontinence, female) Exercise / Class Metabolic Activity II 4-5 Yardwork/Stairs/Walk up hill (Does 1 FOS daily, some mild SOB sometimes 2/2 asthma, but denies any CP) Past Surgical History Surgical History (Updated 05/04/19 @ 14:10 by Marci Yaets RN) History of cardiac cath 11/16/15, 11/19/15 WITH STENTS X3 History of cholecystectomy History of esophagogastroduodenoscopy (EGD) History of herniorrhaphy UMBILICAL HERNIA REPAIR Hx of colonoscopy Hx of sinus surgery Past Anesthesia History No Hx of Anesthesia Complications (other than PONV) and No Family Hx of Anesthesia Complications History of PONV History of PONV and Hx of Motion Sickness Social History Smoking Status: Never smoker Do You Dip or Chew Tobacco: No Hx Alcohol Use: No Hx Substance Use: No substance use type: does not use Review of Systems Pt denies any recent chest pain, shortness of breath, palpitations, cough, fever or URI. 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 Chest X-Ray Date: 05/11/19 Findings: + NAD
[2019-05-11 15:15] LABS: Basophils # (auto) 0.12 K/uL (0-0.2); Basophils % (auto) 1.9 %; Eosinophils % (auto) 12.7 %; Hematocrit (blood only) 41.9 % (37-47); Hemoglobin 14.2 g/dL (12.0-16.0); Immature Granulocytes # (auto) 0.01 K/uL (0.00-0.02); Immature Granulocytes % (auto) 0.2 %; Lymphocytes # (auto) 1.72 K/uL (1.2-3.4); Lymphocytes % (auto) 27.2 %; Mean Corpuscular Hemoglobin 29.6 pg (25-34); Mean Corpuscular Hgb Conc 33.9 g/dL (32-36); Mean Corpuscular Volume 87.3 fL (80-100); Mean Platelet Volume 9.7 fL (7.4-10.4); Monocytes # (auto) 0.39 K/uL (0.11-0.59); Monocytes % (auto) 6.2 %; Neutrophils # (auto) 3.28 K/uL (1.4-6.5); Neutrophils % (auto) 51.8 %; Platelet Count 305 K/uL (130-400); White Blood Count 6.32 K/uL (4.8-10.8)
[2019-05-11 15:25] LABS: Calcium 9.2 mg/dl (8.5-10.1); Creatinine Clr Calc Pharmacy 56.9 ml/min; Est GFR (African American) 62.9; Est GFR (Non-African American) 54.3
--- NOTE | 2019-05-11 16:04 | XRay Report ---
XR chest Pre-admission PA/Lat HISTORY: Preop. COMPARISON: Chest 11/27/2016. FINDINGS: The lungs are clear. The heart is top normal in size. No pleural effusions. No pneumothorax . Right subclavian Port-A-Cath terminates at the proximal SVC. IMPRESSION: No acute process. ACT 112: Negative or not required by law. Electronically signed by: Nabor Sheridan M.D. 05/11/2019 4:02 PM
[2019-05-13 15:13] LABS: Appearance Urine Clear (Clear); Bacteria Urine Automated Negative (Negative); Bilirubin Urine Negative (Negative); Blood Urine Negative (Negative); Cast Urine Automated 0 /lpf (0-5); Color Urine Yellow; Epithelial Cell Urine Auto >30 /lpf (0-5); Glucose Urine UA Negative (Negative); Ketones Urine Negative (Negative); Leukocyte Esterase Urine Trace (Negative); Nitrite Urine Negative (Negative); Protein Urine Negative (Negative); RBC Urine Automated 0-4 /hpf (0-4); Specific Gravity Urine 1.013 (1.000-1.030); Urobilinogen Urine Negative (Negative); pH Urine 5.5 (4.5-7.5)
[~2019-05-29 08:14] MED LIST changes: -ADVIN50/60 INH; -ASPI81TA28 PO; -ATOR-26 PO; -AZEL0.15 NAE; -BCTCR TOP; -CETI10TA84 PO; +CLINDAMYCIN 900 MG in DEXTROSE 5% 50 ML IV SCH; -CRFUDL PO; -FLUO20CA35 PO; -FLUT0.15 NAE; +LR 15ML/HR IV SCH; -METO50TA16 PO; -MONT1TAB3 PO; -NTRGSL/4 UT; -PANT40TA PO; +PHENAZOPYRIDINE HCL 100 MG TAB PO SCH; +SCOPOLAMINE 1.5 MG TDSY TD SCH
[2019-05-29] MEDS ORDERED: ONDANSETRON INJ 2 MG/ML 2 ML VIAL ONE (08:54)
[2019-05-29] MEDS ORDERED: MIDAZOLAM HCL 1 MG/ML 2ML VIAL ONE (08:54)
[2019-05-29] MEDS ORDERED: DEXAMETHASONE SOD INJ 4 MG/ML VIAL ONE (08:54)
[2019-05-29] MEDS ORDERED: PROPOFOL IV EMULSION 10 MG/ML 20 ML VIAL IV ONE (08:54)
[2019-05-29] MEDS ORDERED: GLYCOPYRROLATE 0.2 MG/ML VIAL ONE (08:54)
[2019-05-29] MEDS ORDERED: LIDOCAINE HCL 2% 2 ML VIAL/AMP(20MG/ML) INFIL ONE (08:54)
[2019-05-29] MEDS ORDERED: fentaNYL citrate 100 MCG/2 ML VIAL ONE (08:54)
[2019-05-29] MEDS ORDERED: NEOSTIGMINE METHYLSULFATE 5 MG/5 ML SYR ONE (08:54)
--- NOTE | 2019-05-29 09:46 | History & Physical Bridge Note ---
Date of Service May 29, 2019 History & Physical Bridge Note I have examined the patient, reviewed the History & Physical and in the interval since the performance of the History & Physical I have noted the following changes of clinical significance: no changes noted Currently bleeding not terrible, but her bleeding comes and goes.
[2019-05-29] MEDS ORDERED: KETOROLAC 30 MG/ML VIAL IV PRN ×2 (10:02→12:37)
[2019-05-29] MEDS ORDERED: ePHEDrine sulfate 50 MG/ML AMP IV PRN (10:02)
[2019-05-29] MEDS ORDERED: ONDANSETRON INJ 2 MG/ML 2 ML VIAL IV PRN ×2 (10:02→12:37)
[2019-05-29] MEDS ORDERED: METOCLOPRAMIDE HCL INJ 5 MG/ML 2 ML VIAL IV PRN (10:02)
[2019-05-29] MEDS ORDERED: PROMETHAZINE HCL 12.5 MG in SODIUM CHLORIDE 0.9% 50 ML IV PRN (10:02)
[2019-05-29] MEDS ORDERED: HYDROmorphone INJ 2 MG/ML SYR/VIAL IV PRN (10:02)
[2019-05-29] MEDS ORDERED: ATROPINE SULFATE 0.1 MG/ML 10ML SYR IV PRN (10:02)
[2019-05-29] MEDS ORDERED: fentaNYL citrate 100 MCG/2 ML VIAL IV PRN (10:02)
--- NOTE | 2019-05-29 10:05 | History & Physical Bridge Note ---
Date of Service May 29, 2019 History & Physical Bridge Note I have examined the patient, reviewed the History & Physical and in the interval since the performance of the History & Physical I have noted the following changes of clinical significance: no changes noted Plan for mid urethral sling after hysterectomy
[2019-05-29] MEDS ORDERED: ALBUTEROL 0.5% NEB SOLN 2.5 MG/0.5 ML VIAL NEB STA (10:07)
[2019-05-29] MEDS ORDERED: PREMARIN VAG CRM 14 APPLN/30 GM TUBE ONE (10:11)
[2019-05-29] MEDS ORDERED: BUPIVACAINE 0.5 % 5 MG/1 ML MPF 30ML VIAL ONE (10:11)
[2019-05-29] MEDS ORDERED: LIDOCAINE/EPINEPHRINE 1% 20 ML VIAL ONE (10:11)
[2019-05-29] MEDS ORDERED: BACITRACIN INJ 50,000 UNIT VIAL ONE (10:12)
[2019-05-29] MEDS ORDERED: GENTAMICIN SULFATE 120 MG in DEXTROSE 5% 100 ML IV STA (10:23)
[2019-05-29] MEDS ORDERED: ROCURONIUM BROMIDE 10 MG/ML 5 ML VIAL ONE (12:33)
[2019-05-29] MEDS ORDERED: OXYCODONE/ACETAMINOPHEN 5mg/325mg TAB PO PRN ×2 (12:37)
[2019-05-29] MEDS ORDERED: SIMETHICONE 80 MG CHEW PO PRN (12:37)
[2019-05-29] MEDS ORDERED: IBUPROFEN 600 MG TAB PO PRN (12:37)
[2019-05-29] MEDS ORDERED: ACETAMINOPHEN 325 MG TAB PO PRN (12:37)
[2019-05-29] MEDS ORDERED: PROMETHAZINE HCL 25 MG in SODIUM CHLORIDE 0.9% 50 ML IV PRN (12:37)
--- NOTE | 2019-05-29 12:37 | Post Operative Brief Note ---
PG Immediate Post Op with CF Date of Surgery May 29, 2019 Pre & Post Diagnosis Operation Date: 05/29/19 09:50 Pre-Op Diagnosis: Abnormal Uterine Bleeding, Urinary stress incontinence Post-Op Diagnosis: Abnormal Uterine Bleeding, Urinary stress incontinence I identified the patient and participated in the time-out.: Yes Procedure Operation Date: 05/29/19 09:50 Actual Procedures s Robotic Assisted Total Laparoscopic Hysterectomy with Bilateral Salpingectomies and Cystoscopy(Bilateral) - Kanika Blandon MD, FACOG Surgeon Kanika Blandon MD, FACOG Inspector Returned Materials Reyes Estimated Blood Loss 5 (5=hyster) Findings Consistent with Post-Op Diagnosis (uterus mobile, top normal size, normal tubes and ovaries bilaterally, liver edge obscured by fat. cystoscopy findings with normal bladder filling, normal ureteral jets. ) Fluids 700 Specimens Specimen Description: Permanent: A. Uterus, Cervix and Bilateral Fallopian Tubes Drains Billingsley Catheter Anesthesia Type General Complications none Disposition Accompanied Patient To Recovery: No Disposition: Recovery Room
[2019-05-29] MEDS ORDERED: KETOROLAC 30 MG/ML VIAL ONE (12:39)
--- NOTE | 2019-05-29 13:14 | Operative Report ---
PG Post Operative Report Pre & Post Diagnosis Operation Date: 05/29/19 09:50 Pre-Op Diagnosis: Abnormal Uterine Bleeding, Urinary stress incontinence Post-Op Diagnosis: Abnormal Uterine Bleeding, Urinary stress incontinence I identified the patient and participated in the time-out.: Yes Procedure Operation Date: 05/29/19 09:50 Actual Procedures Cystoscopy with midurethral retropubic sling - Ranulfo Townsend DO Surgeon Ranulfo Townsend, II, DO Motorcycle Service Technician None Estimated Blood Loss 5 (5=hyster) Findings Consistent with Post-Op Diagnosis Significant stress incontinence. Specimens None Drains None Complications none Disposition Disposition: Recovery Room Indications Patient with severe and bothersome stress incontinence. Risks and benefits discussed at length. Description of Procedure Patient was also schedule to have a robotic assisted laparoscopic hysterectomy with Gynecology during the same case. The patient was consented for both procedures, brought to the OR, and placed in the dorsal lithotomy position under general anesthesia. She was prepped and draped in the standard sterile fashion and a time out was completed. The patient underwent the gynecologic procedure prior to starting the sling procedure. Care was passed to myself at the conclusion of that procedure. At this point, a 16 Fr Agosto catheter was placed. The vaginal cavity was irrigated with saline and bacitracin fluid. After irrigation, the midurethral area of the vagina was marked and lidocaine and pitressin solution was injected for hydrodissection. A 15 blade scalpel was used to make an incision approx 1 cm in length. The vaginal mucosa was dissected to free a space to allow trocar placement. All bleeding was controlled with cautery. The space for sling placement was fully developed on each side. At this point, The skin above the pubic bone was marked on each side and local was injected along the course of where the trocars would be placed down to the periosteom which was also injected with local anesthetic. The skin was opened with small incisions on each side. Utilizing the catheter and retraction with a finger in the midurethral opening the trocar was placed along the superior pubic bone and advanced posteriorly behind the pubic bone down into the midurethral opening. The urethra was retracted to each side during placement to avoid the trocar moving near the urethra. This was repeated for the left side. The agosto was removed and a scope placed. The entire bladder was assessed. No masses or lesions. The positioning of the trocars appeared to be without impingement on the bladder and freely moving. No areas of concern or lesions were discovered. The Lynx Retropubic Midurethral Sling was selected. This was attached to the trocars and the sling was guided up and out of the suprapubic incisions. This was placed under the urethra in a tension free position. The scope was placed a final time to confirm no mesh or other foreign body or areas of concern in the bladder or urethra. The sheath was cut and the sheath removed to seat the sling. This was assessed. No major issues were found. The sling appeared in good position. Throughout the entire procedure copious irrigation was utilized. The skin was closed with a 4-0 Monocryl suture and glue placed on the incision after the mesh was trimmed. This was bandaged and cleaned. The vaginal mucosa was closed with interrupted 3-0 vicryl suture. Vaginal packing with premarin was placed with plans to remove prior to discharge. The agosto catheter was maintained at the request of Gynecology. The patient was cleaned. The drapes removed. All counts were correct x 2 prior to full closure. The patient was aroused from anesthesia and transferred to the pacu in stable condition having tolerated the procedure well without complications. I attest to the content of the Intraoperative Record and any orders documented therein. Any exceptions are noted below.
--- NOTE | 2019-05-29 13:41 | Operative Report ---
PG Post Operative Report Pre & Post Diagnosis Operation Date: 05/29/19 09:50 Pre-Op Diagnosis: Abnormal Uterine Bleeding, Urinary stress incontinence Post-Op Diagnosis: Abnormal Uterine Bleeding, Urinary stress incontinence I identified the patient and participated in the time-out.: Yes Procedure Operation Date: 05/29/19 09:50 Actual Procedures s Robotic Assisted Total Laparoscopic Hysterectomy with Bilateral Salpingectomies and Cystoscopy(Bilateral) - Kanika Blandon MD, FACOG Surgeon Kanika Blandon MD, FACOG Aviation Technical Systems Specialist Reyes Estimated Blood Loss 5 (5=hyster) Findings Consistent with Post-Op Diagnosis (IUD removed with ease. Uterus mobile, top normal size. Normal tubes and ovaries bilaterally. Liver edge obscured by fat. Cystoscopy findings with normal bladder filling and normal ureteral jets. ) Fluids 700 Specimens uterus, bilateral fallopian tubes and cervix Drains agosto Anesthesia Type General Complications none Disposition Accompanied Patient To Recovery: No Disposition: Recovery Room Indications 53yo with long history of aub with continued aub despite use of mirena iud. She desired definitive treatment. She has ERNESTO and wanted a concomitant procedure with urology to try to correct that problem. Please see my H&P for more details. Description of Procedure The patient was taken to the operating room and identified. After adequate general anesthesia was obtained she was placed in the dorsolithotomy position and prepped and draped in the usual sterile fashion. Attention was turned to the patient's vagina where a weighted speculum and anterior retractor were used to visualize the cervix. The cervix was grasped on its anterior lip with an allis clamp. A single interrupted suture of 0-vicryl was placed at the 3 o'clock position and tied down. The uterus sounded to 11cm. The V-Care uterine manipulator was placed through the cervical os into the uterine cavity and the balloon was inflated. The cup was tied down against the cervix with the suture material and the stabilizing cup was placed. A agosto catheter had already been placed under sterile conditions. The retractors were removed and attention was then turned to the patient's abdomen. The scalpel was used to make a supraumbilical skin incision and the veress needle was placed intraperitoneally with an opening pressure of 4mm Hg. A CO2 pneumoperitoneum was created. The 12mm optical trocar attached to the laparoscope was then placed intraperitoneally and the patient was placed in steep Trendelenburg. The pelvis and abdomen were inspected with the findings as noted above. Two Da Dalton trocar sites were created left and right of the midline by first make skin incisions with the scalpel and then placing under direct visualization Da Dalton trocars. A blunt probe was used to move the bowel away from the planned operative sites. The laparoscope was removed and the Da Dalton Robot was brought to the patient's bedside. The appropriate arms were connected to the appropriate trocars. The camera was introduced. The monopolar yaneth and the fenestrated bipolar in struments were brought through instrument arms #1 and #2 respectively under direct visualization. The surgeon then went to the console. Using manipulation from below the right uterine ovarian/fallopian tube/round ligament complex was identified. The ureter was seen coursing well below the planned operative site. This complex was coagulated and transected gradually with the bipolar cautery followed by the monopolar yaneth. The anterior and posterior leaves of the broad ligament were opened and the bladder flap was begun anteriorly towards the anterior midline. The uterine artery pedicle was bluntly skeletonized. With the bladder well away from the planned operative sites, the uterine artery pedicle was cauterized. Attention was then turned to the left uterine ovarian/fallopian tube/round ligament complex which was identified and sequentially cauterized and cut in a similar manner. The broad ligament leaves were opened up on this side and a bladder flap was created from this side meeting in the midline anteriorly. The bladder was pushed away bluntly from the planned colpotomy site. The uterine artery pedicle was skeletonized on this side and the vessels were coagulated. The were then transected and sequentially the cardinal ligament attachments were also coagulated and cut. The pedicle was pushed well away from the planned colpotomy. Attention was returned to the right uterine artery pedicle which was then re-cauterized and cut sequentially and the cardinal ligament attachments were also coagulated and transected. The bladder had been dissected and pushed well away from the planned colpotomy site. The uterus was raised and the colpotomy was begun posteriorly and carried around circumferentially to transect the cervix from the upper vagina. The specimen was then brought out vaginally and a sponge was placed in the vagina to maintain the pneumoperitoneum. The fallopian tubes were resected with cautery and scissors and brought out through the vagina as specimens. Operative sites were hemostatic. The monopolar yaneth were replaced with a large needle dray truck driver and the 2-0 V-Lock 90 suture was brought through the vagina. The cuff was closed in a routine fashion with this suture material and back sutures were placed. The sponge was removed from the vagina and the pneumoperitoneum was maintained. The suture material was cut and the needle was removed from the abdomen through instrument arm #1. After the needle was removed the suction engineering inspection assistant was brought through the right trocar and the pelvis was irrigated and the operative sites were hemostatic. The pneumoperitoneum was let down and no bleeding sites were noted. The cystoscopy was then performed with the findings as noted above. The camera and all laparoscopic instruments were removed and the robot was then undocked and moved away from the patient's bedside. The CO2 gas was allowed to escape from the patient's abdomen. The trocars were removed. The supraumbilical tissues were reapproximated with 0 vicryl and all skin incisions were closed with 4-0 vicryl in a subcuticular fashion. The incisions were injected with marcaine and dressed with band-aids. At this point my portion of the procedure was terminated and Dr. Townsend was present to perform his portion of the procedure which will be dictated separately. All sponge lap and needle counts were correct x 2. I attest to the content of the Intraoperative Record and any orders documented therein. Any exceptions are noted below.
--- NOTE | 2019-05-29 13:59 | Anesthesiology Progress Note ---
Date of Service May 29, 2019 Anesthesia Post Procedure Vital Signs Vital Signs: Temp Pulse Pulse Resp BP Pulse Ox 05/29/19 13:54 37.1 C 88 14 114/62 94 05/29/19 13:45 86 14 111/62 98 05/29/19 13:35 84 12 108/66 96 05/29/19 13:28 37 C 90 16 119/67 97 05/29/19 10:16 68 16 96 05/29/19 08:33 36.6 C 77 16 133/83 96 Transfer of Care Handoff Completed per policy Notes Mental Status: alert / awake / arousable and participated in evaluation Patient Amnestic to Procedure: Yes Nausea / Vomiting: adequately controlled Pain: adequately controlled Airway Patency, RR, SpO2: stable & adequate BP & HR: stable & adequate Hydration State: stable & adequate Anesthetic Complications: no major complications apparent
[2019-05-29] MEDS ORDERED: CHECK SCOPOLAMINE PATCH PLACEMENT SCH (16:00)
[2019-05-29] MEDS: LACTATED RINGER'S 1,000 ML IV SCH ×2 (16:22→20:53)
--- NOTE | 2019-05-29 18:02 | Gynecologic Progress Note ---
Date of Service May 29, 2019 Assessment & Plan (1) Abnormal uterine bleeding (AUB): (2) ERNESTO (stress urinary incontinence, female): if voiding well ok to go home as she has met other criteria for discharge. discussed limitations and postop instructions. i reviewed my instructions with her and spouse. they have 2wk followup apt scheduled. suspect vaginal bleeding from sling but its not heavy, but is bright red. monitor and nurse to call if concerned. i spoke to nurse about plan of care directly in patient room. pt denies further ?s. Subjective pt feels well postop. no issues with pain. did not use narcotic. did void once a small amount since agosto out. packing fell out and was a wad. pt with bleeding with wiping. sasha po crackers, not overly hungry but denies n/v/cp/sob. Physical Exam Constitutional: WD/WN, vitals as above Genitourinary: normal external appearance (no packing noted at introitus) gentle digital exam in lower vagina with no packing encountered, suspect all fell out. bright red blood noted, not heavy. Results & Data Vital Signs (Past 12 Hours) Vital Signs Temp Pulse Pulse Pulse Resp BP Pulse Ox 05/29/19 17:16 97.7 F 77 16 104/67 95 05/29/19 16:00 97.5 F L 84 16 104/69 93 05/29/19 15:32 97.5 F L 82 15 97/61 L 94 05/29/19 15:06 97.9 F 82 14 106/68 97 05/29/19 14:45 98.1 F 83 16 109/68 97 05/29/19 14:30 98.6 F 84 16 109/69 97 05/29/19 14:15 98.8 F 86 14 120/65 98 05/29/19 14:02 98.8 F 86 14 119/63 97 05/29/19 13:55 98.8 F 88 14 114/62 94 05/29/19 13:45 86 14 111/62 98 05/29/19 13:35 84 12 108/66 96 05/29/19 13:28 98.6 F 90 16 119/67 97 05/29/19 10:16 68 16 96 05/29/19 08:33 97.9 F 77 16 133/83 96 PG Care Time/CCT Total # of Minutes Spent Total Time Spent with Patient: Total time spent is greater than 50% in coordination of care (as documented) at patient's floor/unit and/or counseling patient: Coding Level of Care Code None Diagnoses Abnormal uterine bleeding (AUB) N93.9 ERNESTO (stress urinary incontinence, female) N39.3
[2019-05-29] MEDS ORDERED: COUGH DROP (SUGAR FREE) LOZ 24 LOZ/1 BOX BUCCAL PRN (20:22)
--- NOTE | 2019-05-30 23:38 | Discharge Summary ---
Date of Service Day of Admission: May 29, 2019 Day of Discharge: May 29, 2019 Discharge Data Procedures Performed Operation Date: 05/29/19 09:50 Actual Procedures p Transvaginal Sling(Not Applicable) - Ranulfo Townsend DO s Robotic Assisted Total Laparoscopic Hysterectomy with Bilateral Salpingectomies and(Bilateral) - Kanika Blandon MD, FACOG s Cystoscopy - Kanika Blandon MD, [facility] Hospital Course (1) Abnormal uterine bleeding (AUB): 53yo with cc of long standing aub, initially successfully managed in past few years with mirena IUD however more recently with persistent irregular bleeding despite mirena iud, who desired definitive hysterectomy. Multiple medical problems that precluded other options. See H&P for more detail. She complained of ERNESTO as well and desired a concomitant procedure to manage that with urology. She was admitted for surgeries as noted above and underwent the procedures without incident. Her postoperative recovery was uncomplicated and on her pod #0 she was ambulating, voiding, eating and her pain was well controlled. She was stable for discharge to home. She will followup with gynecology in 2 weeks. She was aware of her discharge instructions and limitations. She was sent small amount of narcotic if needed to her pharmacy. Coding Level of Care Code None Diagnoses Abnormal uterine bleeding (AUB) N93.9
== END 2019-05-29 22:26 | disposition home or self-care (01) ==
LOC: 3N 08:14 → ASU 08:14